=== PATIENT | male | born 1940 | race Caucasian/White ===

== ENCOUNTER 2018-10-08 17:00 | Inpatient (IN) | payer OTHER, BC ==
--- NOTE | 2018-10-08 17:07 | PDOC ---
Rapid Medical Evaluation Medical Evaluation: 10/08/18 17:07 I have performed a brief in-person evaluation of this patient. The patient presents with a chief complaint of: Sent in by Dr Watts ( podiatry)for admission for diabetic R foot. Per note, admit to [facility], consult w / David Alva and Mac). Has h/o NIDDM, HTN, MIs, CABG x 3, multiple knee surgeries, Parkinson's, ambulates w/ cane Pertinent physical exam findings: Stable, defer rest of exam to ED provider I have ordered the following:labs/XR The patient will proceed to the ED for further evaluation
--- NOTE | 2018-10-08 17:50 | PDOC ---
History of Present Illness - General Chief Complaint: Wound Stated Complaint: PCP SENT Time Seen by Provider: 10/08/18 17:41 - History of Present Illness Initial Comments: 10/08/18 17:49 Patient is a 78 year old male with past medical history of NIDDM, HTN, OK (s/p CABGx3), Parkinson's, and multiple knee surgeries, came to the ED for right foot wound. Patient reported the wound started a year ago, on his 2nd toe nail. He has been seen by Dr. Watts for foot and wound care. Patient was admitted 2 months ago at [facility] for right foot cellulitis. Today, patient was seen at Dr. Watts's office who sent patient to the ED for admission. Patient denies fever, chills, headache, dizziness, nausea, vomiting, chest pain, SOB, palpitations, abdominal pain, urinary symptoms. Past History - Past Medical History Allergies/Adverse Reactions: Allergies Allergy/AdvReac Type Severity Reaction Status Date / Time No Known Allergies Allergy Verified 10/08/18 17:22 Home Medications: Ambulatory Orders Atorvastatin Ca [Lipitor] 80 mg PO HS 10/08/18 Carbidopa/Levodopa/Entacapone [Xnccdxreb-Nvmmfqso-Dfog 200 mg] 1 each PO QID 10/14 Carvedilol [Coreg -] 6.25 mg PO BID 10/08/18 Furosemide 40 mg DAILY 10/08/18 Gabapentin 600 mg PO BID 10/08/18 Selegiline 5 mg BID 10/08/18 Cardiac Disorders: Yes (OK x 3) COPD: No Diabetes: Yes (Pre- diabetic) HTN: Yes Other medical history: Parkinson's Dx - Suicide/Smoking/Psychosocial Hx Smoking History: Unknown if ever smoked Have you smoked in the past 12 months: No Information on smoking cessation initiated: No Hx Alcohol Use: No Drug/Substance Use Hx: No Review of Systems - Review of Systems Constitutional: No: Chills, Fever, Loss of Appetite HEENTM: No: Recent change in vision, Hearing Loss, Difficulty Swallowing Respiratory: No: Cough, Shortness of Breath Cardiac (ROS): No: Chest Pain, Lightheadedness, Palpitations ABD/GI: No: Abdominal Distended, Diarrhea, Nausea, Vomiting, Abdominal cramping : No: Burning, Dysuria, Discharge Integumentary: Yes: Erythema, Lesions Neurological: No: Headache, Numbness, Tingling, Weakness *Physical Exam - Vital Signs Last Vital Signs Temp Pulse Resp BP Pulse Ox 97.9 F 57 L 16 91/52 L 98 10/08/18 17:15 10/08/18 17:15 10/08/18 17:15 10/08/18 17:15 10/08/18 17:15 - Physical Exam Comments: 10/08/18 18:51 General: awake, alert, oriented, not in acute distress Head: no signs of head trauma HEENT: PERRLA, EOMI, sclerae anicteric, no nasal discharge, non-erythematous oropharynx, moist mucous membranes Neck: soft, supple, trachea midline without thyroid enlargement Lungs:clear to auscultation bilaterally Heart:regular rate and rhythm, normal S1/S2, no m,r,g Abdomen:soft, nontender, nondistended, NABS Ext:RLE: +erythema, +tenderness, +warmth of dorsal aspect of right foot and anterior right leg. +purulent discharge on 2nd toe. DP pulses palpable. LLE: no erythema or swelling, +wound on 4th toe. Moderate Sedation - Procedure Monitoring Vital Signs: Procedure Monitoring Vital Signs Temperature 97.9 F 10/08/18 17:15 Pulse Rate 57 L 10/08/18 17:15 Respiratory Rate 16 10/08/18 17:15 Blood Pressure 91/52 L 10/08/18 17:15 O2 Sat by Pulse Oximetry (%) 98 10/08/18 17:15 ED Treatment Course - LABORATORY CBC & Chemistry Diagram: 10/08/18 17:53 10/08/18 17:53 Medical Decision Making - Medical Decision Making 10/08/18 18:56 Patient is a 78 year old male with past medical history of NIDDM, HTN, OK (s/p CABGx3), Parkinson's, and multiple knee surgeries, came to the ED for right foot wound. DDx include but not limited to diabetic foot, cellulitis, osteomyelitis CBC, CMP, ESR/CRP Blood cx Wound cx UA, Urine cx EKG Right foot xray 10/08/18 19:[address] Ramos's service Consult Dr. Perez, Dr. Hernandez, Dr. Watts *DC/Admit/Observation/Transfer - Referrals Referrals: Johnie Blankenship [Primary Care Provider] - - Patient Instructions - Post Discharge Activity
[2018-10-08 18:21] LABS: BASO % 0.4 % (0-2.0); EOS % 1.2 % (0-4.5); HEMATOCRIT 41.1 % (35.4-49); HEMOGLOBIN 14.4 GM/dL (11.7-16.9); LYMPH % 34.2 % (8-40); MCH 33.1 pg (25.7-33.7); MCHC 35.1 g/dl (32.0-35.9); MEAN CELL VOLUME 94.3 fl (80-96); MEAN PLT VOLUME 8.5 fl (7.5-11.1); MONO % 7.2 % (3.8-10.2); PLATELET COUNT 152 K/MM3 (134-434); RBC 4.36 M/mm3 (4.00-5.60); RDW 13.9 % (11.9-15.9); WHITE BLOOD COUNT 9.1 K/mm3 (4.0-10.0)
[2018-10-08 18:51] LABS: ALBUMIN 3.9 g/dl (3.4-5.0); ALK PHOS 99 U/L (45-117); ANION GAP 6 MMOL/L (8-16); BILIRUBIN,TOTAL 0.7 mg/dL (0.2-1); BLOOD UREA NITROGEN 28 mg/dL (7-18); CHLORIDE 100 mmol/L (98-107); CO2 30 mmol/L (21-32); CREATININE 1.1 mg/dL (0.55-1.3); GLUCOSE,RANDOM 96 mg/dL (74-106); SGOT/AST 15 U/L (15-37); SGPT/ALT 8 U/L (13-61); SODIUM 136 mmol/L (136-145); TOT PROT 7.4 g/dl (6.4-8.2)
[2018-10-08] MEDS ORDERED: VANCOMYCIN 1,000 MG in DEXTROSE 5%-WATER - 250 ML IVPB ONE (18:57)
[2018-10-08] MEDS ORDERED: VANCOMYCIN 1 GRAM (PRE-DOCKED) 1,000 MG/250 ML BAG IVPB ONE (19:33)
--- NOTE | 2018-10-08 20:44 | PDOC ---
Attending Attestation - Resident Resident Name: Graciela Vergara - ED Attending Attestation I have performed the following: I have examined & evaluated the patient, The case was reviewed & discussed with the resident, I agree w/resident's findings & plan, Exceptions are as noted - HPI HPI: 10/08/18 20:42 The patient is a 78 year old male with significant past medical history of NIDDM , HTN, UT (s/p CABGx3), Parkinson's, and multiple knee surgeries, who presents to the ED for evaluation of a wound to his right foot right foot wound sent by his knife sharpener Dr. Watts due to concern for wound infection. Patient denies fever, chills, headache, dizziness, nausea, vomiting, chest pain, SOB. - Physicial Exam PE: 10/08/18 20:43 Agree with resident exam - Medical Decision Making 10/08/18 20:43 78 M with chronic wounds to R foot, now with signs of infection, sent in for IV abx. - Labs, cultures - IV vanco - ID/vascular/podiatry consult - Admit
[2018-10-08 20:53] LABS: URINE APPEARANCE CLEAR; URINE BILIRUBIN NEGATIVE (<2.0 mg/dL); URINE GLUCOSE (UA) NEGATIVE (NEGATIVE); URINE KETONE TRACE (NEGATIVE); URINE LEUK ESTERASE NEGATIVE (NEGATIVE); URINE NITRITE NEGATIVE (NEGATIVE); URINE PROTEIN NEGATIVE (NEGATIVE); URINE UROBILINOGEN NEGATIVE mg/dL (0.2-1.0)
[2018-10-08 21:14] LABS: URINE COLOR YELLOW
--- NOTE | 2018-10-08 22:39 | PDOC ---
*Physical Exam - Vital Signs Last Vital Signs Temp Pulse Resp BP Pulse Ox 97.6 F 64 18 101/58 L 97 10/08/18 21:34 10/08/18 21:34 10/08/18 21:34 10/08/18 21:34 10/08/18 21:34 ED Treatment Course - LABORATORY CBC & Chemistry Diagram: 10/08/18 17:53 10/08/18 17:53 - ADDITIONAL ORDERS Additional order review: Laboratory Results 10/08/18 10/08/18 10/08/18 20:32 17:53 17:51 Sodium 136 Potassium 4.0 Chloride 100 Carbon Dioxide 30 Anion Gap 6 L BUN 28 H Creatinine 1.1 Creat Clearance w eGFR > 60 Random Glucose 96 Calcium 9.0 Total Bilirubin 0.7 AST 15 ALT 8 L Alkaline Phosphatase 99 C-Reactive Protein < 0.3 Total Protein 7.4 Albumin 3.9 Urine Color Yellow Urine Appearance Clear Urine pH 5.0 Ur Specific [place] 1.013 Urine Protein Negative Urine Glucose (UA) Negative Urine Ketones Trace H Urine Blood Negative Urine Nitrite Negative Urine Bilirubin Negative Urine Urobilinogen Negative Ur Leukocyte Esterase Negative 10/08/18 17:53 RBC 4.36 MCV 94.3 MCHC 35.1 RDW 13.9 MPV 8.5 Neutrophils % 57.0 Lymphocytes % 34.2 Monocytes % 7.2 Eosinophils % 1.2 Basophils % 0.4 - Medications Given in the ED: ED Medications Discontinued Medications Generic Name Dose Route Start Last Admin Trade Name Freq PRN Reason Stop Dose Admin Vancomycin HCl 1,000 mg/ 250 mls @ 166.667 mls/hr 10/08/18 18:57 10/08/18 19: 40 Dextrose IVPB 10/08/18 20:26 166.667 mls/hr ONCE ONE Administration Protocol Medical Decision Making - Medical Decision Making 10/08/18 22:40 Patient is a 78 year old male with past medical history of NIDDM, HTN, UT (s/p CABGx3), Parkinson's, and multiple knee surgeries, came to the ED for right foot wound. Patient reported the wound started a year ago, on his 2nd toe nail. He has been seen by Dr. Watts for foot and wound care. Patient was admitted 2 months ago at [facility] for right foot cellulitis. Today, patient was seen at Dr. Watts's office who sent patient to the ED for admission. Patient denies fever, chills, headache, dizziness, nausea, vomiting, chest pain, SOB, palpitations, abdominal pain, urinary symptoms. Called Dr. Ramos and admitted pt. *DC/Admit/Observation/Transfer Diagnosis at time of Disposition: Cellulitis Qualifiers: Site of cellulitis: extremity Site of cellulitis of extremity: lower extremity Laterality: right Qualified Code(s): L03.115 - Cellulitis of right lower limb - Discharge Dispostion Decision to Admit order: Yes Decision to Admit order Date/Time: Decision to Admit Order Category Date Time Status Decision to Admit to Hospital Routine Admission 10/08/18 19:33 Active - Referrals - Patient Instructions - Post Discharge Activity
[2018-10-08 23:36] VITALS: BMI 26.1
[2018-10-09] MEDS: INSULIN SLIDING SCALE (NOVOLOG) 1 VIAL SQ SCH ×4 (06:08→21:59)
[2018-10-09 07:38] LABS: BASO % 0.5 % (0-2.0); EOS % 1.9 % (0-4.5); HEMATOCRIT 39.9 % (35.4-49); HEMOGLOBIN 13.1 GM/dL (11.7-16.9); LYMPH % 37.7 % (8-40); MCH 31.6 pg (25.7-33.7); MEAN CELL VOLUME 95.7 fl (80-96); MEAN PLT VOLUME 8.5 fl (7.5-11.1); MONO % 8.5 % (3.8-10.2); NEUT % 51.4 % (42.8-82.8); PLATELET COUNT 125 K/MM3 (134-434); RBC 4.17 M/mm3 (4.00-5.60); RDW 14.2 % (11.9-15.9); WHITE BLOOD COUNT 6.6 K/mm3 (4.0-10.0)
[2018-10-09 08:59] LABS: ALBUMIN 3.3 g/dl (3.4-5.0); ALK PHOS 85 U/L (45-117); ANION GAP 9 MMOL/L (8-16); BILIRUBIN,TOTAL 0.8 mg/dL (0.2-1); BLOOD UREA NITROGEN 25 mg/dL (7-18); CALCIUM 8.3 mg/dL (8.5-10.1); CHLORIDE 103 mmol/L (98-107); CO2 27 mmol/L (21-32); GLUCOSE,RANDOM 93 mg/dL (74-106); SGOT/AST 11 U/L (15-37); SGPT/ALT 15 U/L (13-61); SODIUM 138 mmol/L (136-145); TOT PROT 6.4 g/dl (6.4-8.2)
[2018-10-09] MEDS: GABAPENTIN 300 MG CAPSULE (FP) PO SCH ×2 (09:31→21:59)
[2018-10-09] MEDS: CARVEDILOL 6.25 MG TABLET (FP) PO SCH ×2 (09:31→21:58)
[2018-10-09] MEDS: HEPARIN NA (PORCINE) 5,000 UNITS/ML 1ML VIAL SQ SCH ×2 (09:31→21:58)
[2018-10-09] MEDS ORDERED: VANCOMYCIN 1 GRAM (PRE-DOCKED) 1,000 MG/250 ML BAG IVPB SCH (10:00)
[2018-10-09] MEDS ORDERED: VANCOMYCIN 1 GRAM (PRE-DOCKED) 1,000 MG/250 ML BAG IVPB ONE (10:00)
--- NOTE | 2018-10-09 10:32 | CONSULT ---
Consult - Alcohol/Substance Use Hx Alcohol Use: No - Smoking History Smoking history: Never smoked Have you smoked in the past 12 months: No Home Medications - Allergies Allergies/Adverse Reactions: Allergies Allergy/AdvReac Type Severity Reaction Status Date / Time No Known Allergies Allergy Verified 10/08/18 17:22 - Home Medications Home Medications: Ambulatory Orders Atorvastatin Ca [Lipitor] 80 mg PO HS 10/08/18 Carbidopa/Levodopa/Entacapone [Whutwozml-Iwdpiecj-Dibd 200 mg] 1 each PO QID 10/14 Carvedilol [Coreg -] 6.25 mg PO BID 10/08/18 Furosemide 40 mg DAILY 10/08/18 Gabapentin 600 mg PO BID 10/08/18 Selegiline 5 mg BID 10/08/18 Physical Exam Vital Signs: Vital Signs Temperature 98.2 F 10/09/18 06:00 Pulse Rate 60 10/09/18 06:00 Respiratory Rate 20 10/09/18 06:00 Blood Pressure 129/57 L 10/09/18 06:00 O2 Sat by Pulse Oximetry (%) 97 10/08/18 21:34 Labs: CBC, BMP 10/09/18 07:00 10/09/18 07:00
--- NOTE | 2018-10-09 11:28 | PN ---
Progress Note (short form) - Note Progress Note: Vascular Surgery pt seen and examined. RLE cellulitis Leg is warm to touch Pt was admitted at [facility] 3 weeks ago for similiar event. Pt needs leg elevation, and IV antibiotics Pt needs to follow up in wound care clinc for outpt venous workup. pt needs stockings as outpt as well for compression. Juan gardner DO
--- NOTE | 2018-10-09 12:48 | EKG ---
Test Reason : Blood Pressure : / mmHG Vent. Rate : 069 BPM Atrial Rate : 069 BPM P-R Int : 220 ms QRS Dur : 094 ms QT Int : 406 ms P-R-T Axes : 077 036 050 degrees QTc Int : 435 ms SINUS RHYTHM WITH 1ST DEGREE A-V BLOCK WITH PREMATURE ATRIAL COMPLEXES INFERIOR INFARCT , AGE UNDETERMINED ABNORMAL ECG WHEN COMPARED WITH ECG OF 08-OCT-2018 19:08, NO SIGNIFICANT CHANGE WAS FOUND Confirmed by ROCAEL SANDOVAL, CINDY ([id number]) on 10/09/2018 12:47:50 PM Referred By: Confirmed By:CINDY COTE MD
--- NOTE | 2018-10-09 13:12 | CON.ID ---
Consult - Alcohol/Substance Use Hx Alcohol Use: No - Smoking History Smoking history: Never smoked Have you smoked in the past 12 months: No Home Medications - Allergies Allergies/Adverse Reactions: Allergies Allergy/AdvReac Type Severity Reaction Status Date / Time No Known Allergies Allergy Verified 10/08/18 17:22 - Home Medications Home Medications: Ambulatory Orders Atorvastatin Ca [Lipitor] 80 mg PO HS 10/08/18 Carbidopa/Levodopa/Entacapone [Oupnrqskm-Buyvdlgn-Ywxo 200 mg] 1 each PO QID 10/14 Carvedilol [Coreg -] 6.25 mg PO BID 10/08/18 Furosemide 40 mg DAILY 10/08/18 Gabapentin 600 mg PO BID 10/08/18 Selegiline 5 mg BID 10/08/18 Physical Exam Vital Signs: Vital Signs Temperature 97.9 F 10/09/18 10:00 Pulse Rate 62 10/09/18 10:00 Respiratory Rate 20 10/09/18 10:00 Blood Pressure 125/62 10/09/18 10:00 O2 Sat by Pulse Oximetry (%) 95 10/09/18 09:00 Labs: CBC, BMP 10/09/18 07:00 10/09/18 07:00
--- NOTE | 2018-10-09 13:37 | HP ---
Admitting History and Physical - Smoking History Smoking history: Never smoked Have you smoked in the past 12 months: No - Alcohol/Substance Use Hx Alcohol Use: No Home Medications - Allergies Allergies/Adverse Reactions: Allergies Allergy/AdvReac Type Severity Reaction Status Date / Time No Known Allergies Allergy Verified 10/08/18 17:22 - Home Medications Home Medications: Ambulatory Orders Atorvastatin Ca [Lipitor] 80 mg PO HS 10/08/18 Carbidopa/Levodopa/Entacapone [Pdaljrfux-Vqyarzqn-Zgue 200 mg] 1 each PO QID 10/14 Carvedilol [Coreg -] 6.25 mg PO BID 10/08/18 Furosemide 40 mg DAILY 10/08/18 Gabapentin 600 mg PO BID 10/08/18 Selegiline 5 mg BID 10/08/18 Physical Examination Vital Signs: Vital Signs Temperature 97.9 F 10/09/18 10:00 Pulse Rate 62 10/09/18 10:00 Respiratory Rate 20 10/09/18 10:00 Blood Pressure 125/62 10/09/18 10:00 O2 Sat by Pulse Oximetry (%) 95 10/09/18 09:00 Labs: CBC, BMP 10/09/18 07:00 10/09/18 07:00
[2018-10-09] MEDS: AMPICILLIN NA/SULBACTAM NA 3 GM in SODIUM CHLORIDE 100 ML IVPB SCH ×2 (14:48→17:22)
[2018-10-09] MEDS ORDERED: PT OWN MED DRAWER 7, Y5N ONE ×2 (15:02→17:04)
[2018-10-09] MEDS: CARBIDOP 50MG/LEVODOPA 200MG/ENTACAPONE 200MG TABLET PO SCH ×3 (16:30→22:00)
[2018-10-09] MEDS: ATORVASTATIN CA 80 MG TABLET (FP) PO SCH (21:58)
[2018-10-10] MEDS: AMPICILLIN NA/SULBACTAM NA 3 GM in SODIUM CHLORIDE 100 ML IVPB SCH ×2 (01:36→09:28)
[2018-10-10] MEDS: INSULIN SLIDING SCALE (NOVOLOG) 1 VIAL SQ SCH ×4 (06:24→21:47)
[2018-10-10] MEDS ORDERED: PT OWN MED DRAWER 7, Y5N ONE ×2 (06:26→21:02)
[2018-10-10] MEDS ORDERED: INSULIN (LEVEMIR) 100 UNITS/ML UNITS SQ ONE (06:26)
[2018-10-10] MEDS ORDERED: INSULIN (NOVOLOG) ASPART 100 UNITS/ML 10ML VIAL ONE ×2 (06:26→20:52)
[2018-10-10] MEDS: CARVEDILOL 6.25 MG TABLET (FP) PO SCH ×2 (09:28→21:47)
[2018-10-10] MEDS: GABAPENTIN 300 MG CAPSULE (FP) PO SCH ×2 (09:28→21:47)
[2018-10-10] MEDS: HEPARIN NA (PORCINE) 5,000 UNITS/ML 1ML VIAL SQ SCH ×2 (09:28→21:47)
[2018-10-10] MEDS: CARBIDOP 50MG/LEVODOPA 200MG/ENTACAPONE 200MG TABLET PO SCH ×4 (09:30→21:48)
[2018-10-10] MEDS: BACITRACIN 15 GM TUBE TOPICAL OINTMENT TP SCH (10:06)
--- NOTE | 2018-10-10 13:09 | PN ---
Progress Note, Physician History of Present Illness: patient doing well no complaints legs look good no pain - Current Medication List Current Medications: Active Medications Atorvastatin Calcium (Lipitor -) 80 mg PO HS [facility] Last Admin: 10/09/18 21:58 Dose: 80 mg Bacitracin (Bacitracin -) 1 applic TP DAILY [facility] Last Admin: 10/10/18 10:06 Dose: 1 applic Carbidopa/Levodopa/Entacapone (Stalevo 200 -) 1 each PO QID [facility] Last Admin: 10/10/18 09:30 Dose: 1 each Carvedilol (Coreg -) 6.25 mg PO BID [facility] Last Admin: 10/10/18 09:28 Dose: 6.25 mg Gabapentin (Neurontin -) 600 mg PO BID [facility] Last Admin: 10/10/18 09:28 Dose: 600 mg Heparin Sodium (Porcine) (Heparin -) 5,000 unit SQ BID [facility] Last Admin: 10/10/18 09:28 Dose: 5,000 unit Ampicillin Sodium/Sulbactam (Sodium 3 gm/ Sodium Chloride) 100 mls @ 200 mls/ hr IVPB Q8H-IV [facility] Last Admin: 10/10/18 09:28 Dose: 200 mls/hr Insulin Aspart (Novolog Vial Sliding Scale -) 1 vial SQ ACHS [facility]; Protocol Last Admin: 10/10/18 11:23 Dose: Not Given - Objective Vital Signs: Vital Signs Temperature 97.3 F L 10/10/18 10:00 Pulse Rate 53 L 10/10/18 10:00 Respiratory Rate 20 10/10/18 10:00 Blood Pressure 121/66 10/10/18 10:00 O2 Sat by Pulse Oximetry (%) 99 10/10/18 09:00 Constitutional: Yes: No Distress, Calm Cardiovascular: Yes: Regular Rate and Rhythm Respiratory: Yes: Regular, CTA Bilaterally Gastrointestinal: Yes: Normal Bowel Sounds, Soft Musculoskeletal: Yes: WNL Extremities: Yes: Other Integumentary: Yes: Venous Stasis Changes, Other Neurological: Yes: Alert, Oriented Labs: CBC, BMP 10/09/18 07:00 10/09/18 07:00 Assessment/Plan cellulitis of the leg toe injury plan will change to oral abx monitor rest as per the team
--- NOTE | 2018-10-10 13:44 | PN ---
Progress Note (short form) - Note Progress Note: FUV right leg and foot. No pain. vss, Tmax 97.8 +resolved cellulitis, -open wound, +eschar toes 2&3 where he cut his toes, resoilved cellulitis can be dc from podiatry standpoint and follow up in office. Abx as per ID.
[2018-10-10] MEDS: AMOX TR/POT CLAV 500MG/125MG TABLETS (FP) PO SCH (16:51)
[2018-10-10] MEDS: ATORVASTATIN CA 80 MG TABLET (FP) PO SCH (21:47)
--- NOTE | 2018-10-10 23:11 | PN ---
Progress Note, Physician - Current Medication List Current Medications: Active Medications Amoxicillin/Clavulanate Potassium (Augmentin - 500mg Tablet) 1 tab PO BID@0800, 1730 [facility] Last Admin: 10/10/18 16:51 Dose: 1 tab Atorvastatin Calcium (Lipitor -) 80 mg PO HS [facility] Last Admin: 10/10/18 21:47 Dose: 80 mg Bacitracin (Bacitracin -) 1 applic TP DAILY [facility] Last Admin: 10/10/18 10:06 Dose: 1 applic Carbidopa/Levodopa/Entacapone (Stalevo 200 -) 1 each PO QID [facility] Last Admin: 10/10/18 21:48 Dose: 1 each Carvedilol (Coreg -) 6.25 mg PO BID [facility] Last Admin: 10/10/18 21:47 Dose: 6.25 mg Gabapentin (Neurontin -) 600 mg PO BID [facility] Last Admin: 10/10/18 21:47 Dose: 600 mg Heparin Sodium (Porcine) (Heparin -) 5,000 unit SQ BID [facility] Last Admin: 10/10/18 21:47 Dose: 5,000 unit Insulin Aspart (Novolog Vial Sliding Scale -) 1 vial SQ [facility]; Protocol Last Admin: 10/10/18 21:47 Dose: Not Given - Objective Vital Signs: Vital Signs Temperature 97.7 F 10/10/18 18:07 Pulse Rate 59 L 10/10/18 18:07 Respiratory Rate 18 10/10/18 18:07 Blood Pressure 142/64 10/10/18 18:07 O2 Sat by Pulse Oximetry (%) 99 10/10/18 09:00 Labs: CBC, BMP 10/09/18 07:00 10/09/18 07:00
[2018-10-11 01:08] VITALS: TEMP 97.4
[2018-10-11] MEDS ORDERED: PT OWN MED DRAWER 7, Y5N ONE (08:55)
[2018-10-11] MEDS: AMOX TR/POT CLAV 500MG/125MG TABLETS (FP) PO SCH ×2 (09:00→16:40)
[2018-10-11] MEDS: GABAPENTIN 300 MG CAPSULE (FP) PO SCH (09:03)
[2018-10-11] MEDS: CARVEDILOL 6.25 MG TABLET (FP) PO SCH (09:04)
[2018-10-11] MEDS: HEPARIN NA (PORCINE) 5,000 UNITS/ML 1ML VIAL SQ SCH (09:04)
[2018-10-11] MEDS: CARBIDOP 50MG/LEVODOPA 200MG/ENTACAPONE 200MG TABLET PO SCH ×2 (09:05→14:36)
[2018-10-11] MEDS: BACITRACIN 15 GM TUBE TOPICAL OINTMENT TP SCH (09:05)
[2018-10-11] MEDS: INSULIN SLIDING SCALE (NOVOLOG) 1 VIAL SQ SCH ×2 (12:00→16:34)
[2018-10-11 13:55] VITALS: BP 96/75; PULSE 60
--- NOTE | 2018-10-11 14:01 | PN ---
Progress Note, Physician - Current Medication List Current Medications: Active Medications Amoxicillin/Clavulanate Potassium (Augmentin - 500mg Tablet) 1 tab PO BID@0800, 1730 [facility] Last Admin: 10/11/18 09:00 Dose: 1 tab Atorvastatin Calcium (Lipitor -) 80 mg PO HS [facility] Last Admin: 10/10/18 21:47 Dose: 80 mg Bacitracin (Bacitracin -) 1 applic TP DAILY [facility] Last Admin: 10/11/18 09:05 Dose: 1 applic Carbidopa/Levodopa/Entacapone (Stalevo 200 -) 1 each PO QID [facility] Last Admin: 10/11/18 09:05 Dose: 1 each Carvedilol (Coreg -) 6.25 mg PO BID [facility] Last Admin: 10/11/18 09:04 Dose: 6.25 mg Gabapentin (Neurontin -) 600 mg PO BID [facility] Last Admin: 10/11/18 09:03 Dose: 600 mg Heparin Sodium (Porcine) (Heparin -) 5,000 unit SQ BID [facility] Last Admin: 10/11/18 09:04 Dose: 5,000 unit Insulin Aspart (Novolog Vial Sliding Scale -) 1 vial SQ [facility]; Protocol Last Admin: 10/10/18 21:47 Dose: Not Given - Objective Vital Signs: Vital Signs Temperature 97.4 F L 10/11/18 13:54 Pulse Rate 60 10/11/18 13:54 Respiratory Rate 20 10/11/18 13:54 Blood Pressure 96/75 10/11/18 13:54 O2 Sat by Pulse Oximetry (%) 99 10/10/18 21:00 Labs: CBC, BMP 10/09/18 07:00 10/09/18 07:00
--- NOTE | 2018-10-12 12:32 | EKG ---
Test Reason : Blood Pressure : / mmHG Vent. Rate : 066 BPM Atrial Rate : 066 BPM P-R Int : 194 ms QRS Dur : 094 ms QT Int : 406 ms P-R-T Axes : 078 049 065 degrees QTc Int : 425 ms SINUS RHYTHM WITH PREMATURE SUPRAVENTRICULAR COMPLEXES OTHERWISE NORMAL ECG NO PREVIOUS ECGS AVAILABLE Confirmed by THANH ARAYA MD ([id number]) on 10/12/2018 12:31:51 PM Referred By: Confirmed By:THANH ARAYA MD
== END 2018-10-11 16:40 | disposition home or self-care (01) | DRG 603 ==
LOC: JER 17:00 → J7W 19:33
PROVIDERS: ADMIT Internal Medicine; ATTEND Internal Medicine
DX: L03.115 Cellulitis of right lower limb (principal); I10 Essential (primary) hypertension; I25.2 Old myocardial infarction; Z95.1 Presence of aortocoronary bypass graft; G20 Parkinson's disease; Z79.4 Long term (current) use of insulin
CPT/HCPCS: 36415; 73630-TC-RT-FY; 80053; 81003; 82962; 85025; 85651; 86140; 87040; 87070; 87086; 87186; 87205; 93005; 93010; 99283-25; J1644

== ENCOUNTER 2018-10-30 12:34 | Inpatient (IN) | payer OTHER, BC ==
[2018-10-30] MEDS ORDERED: AMPICILLIN NA/SULBACTAM NA 3 GM in SODIUM CHLORIDE 100 ML IVPB ONE (13:47)
--- NOTE | 2018-10-30 14:35 | PDOC ---
*Physical Exam - Vital Signs Last Vital Signs Temp Pulse Resp BP Pulse Ox 97.4 F L 74 18 106/49 L 98 10/30/18 13:09 10/30/18 13:09 10/30/18 13:09 10/30/18 13:09 10/30/18 13:09 ED Treatment Course - LABORATORY CBC & Chemistry Diagram: 10/31/18 07:00 11/03/18 06:00 Medical Decision Making - Medical Decision Making 10/30/18 14:35 Pt seen by the Advanced Practice Provider under my direct supervision Ancillary studies reviewed I agree with plan as outlined by the Advanced Practice Provider JOSELIN Gimenez *DC/Admit/Observation/Transfer Diagnosis at time of Disposition: Recurrent cellulitis of lower extremity - Referrals - Patient Instructions - Post Discharge Activity
--- NOTE | 2018-10-30 14:36 | PDOC ---
History of Present Illness - General Chief Complaint: Wound Stated Complaint: WOUND Time Seen by Provider: 10/30/18 13:39 History Source: Patient Exam Limitations: No Limitations - History of Present Illness Initial Comments: 10/30/18 14:26 78-year-old male with history of diabetes and recent cellulitis of the right leg presents to the ED with redness swelling and discomfort to the right lower extremity since this morning. The patient was admitted here last month for the same. Patient denies fever, chills, chest pain or shortness of breath. Patient denies open wounds and did not check his glucose this morning Timing/Duration: 24 hours Severity: moderate Associated Symptoms: reports: denies symptoms Past History - Travel Traveled outside of the country in the last 30 days: No Close contact w/someone who was outside of country & ill: No - Past Medical History Allergies/Adverse Reactions: Allergies Allergy/AdvReac Type Severity Reaction Status Date / Time No Known Allergies Allergy Verified 10/30/18 13:09 Home Medications: Ambulatory Orders Atorvastatin Ca [Lipitor] 80 mg PO HS 10/08/18 Carbidopa/Levodopa/Entacapone [Carbidopa-Levodopa 200 mg-Enta] 1 each PO QID 10/14 Carvedilol [Coreg -] 6.25 mg PO BID 10/08/18 Furosemide 40 mg DAILY 10/08/18 Gabapentin 600 mg PO BID 10/08/18 Selegiline 5 mg BID 10/08/18 Amox-Tr/K Cl [Augmentin 500-125mg Tablet -] 1 tab PO BID@0800,1730 #20 tablet Bacitracin - [Bacitracin Topical Ointment -] 1 applic TP DAILY #1 tube 10/11/18 Cardiac Disorders: Yes (RI x 3) COPD: No Diabetes: Yes (Pre- diabetic) HTN: Yes - Surgical History Orthopedic Surgery: Yes (KNEE SURGERY) - Immunization History Immunization Up to Date: Yes - Suicide/Smoking/Psychosocial Hx Smoking History: Never smoked Have you smoked in the past 12 months: No Information on smoking cessation initiated: No Hx Alcohol Use: No Drug/Substance Use Hx: No Patient Lives Alone: No Lives with/in: spouse/SO Review of Systems - Review of Systems Able to Perform ROS?: Yes Constitutional: No: Symptoms Reported HEENTM: No: Symptoms Reported Respiratory: No: Symptoms reported Cardiac (ROS): Yes: Symptoms Reported, Edema ABD/GI: No: Symptoms Reported : No: Symptoms Reported Musculoskeletal: Yes: Symptoms Reported, Muscle Pain (right calf) Integumentary: Yes: Erythema Neurological: No: Symptoms reported *Physical Exam - Vital Signs Last Vital Signs Temp Pulse Resp BP Pulse Ox 97.4 F L 74 18 106/49 L 98 10/30/18 13:09 10/30/18 13:09 10/30/18 13:09 10/30/18 13:09 10/30/18 13:09 - Physical Exam General Appearance: Yes: Nourished, Appropriately Dressed. No: Apparent Distress Respiratory/Chest: positive: Lungs Clear, Normal Breath Sounds. negative: Respiratory Distress, Accessory Muscle Use Cardiovascular: positive: Regular Rhythm, Regular Rate. negative: Murmur Extremity: positive: Normal Capillary Refill, Pedal Edema (2+ nonpitting edema to right lower extremity with erythema and increased warmth), Calf Tenderness ( mild distal right calf) Integumentary: positive: Erythema, Swelling Neurologic: positive: Normal Mood/Affect, Motor Strength 5/5 Moderate Sedation - Procedure Monitoring Vital Signs: Procedure Monitoring Vital Signs Temperature 97.4 F L 10/30/18 13:09 Pulse Rate 74 10/30/18 13:09 Respiratory Rate 18 10/30/18 13:09 Blood Pressure 106/49 L 10/30/18 13:09 O2 Sat by Pulse Oximetry (%) 98 10/30/18 13:09 ED Treatment Course - LABORATORY CBC & Chemistry Diagram: 10/30/18 15:00 10/30/18 14:49 - RADIOLOGY Radiology Studies Ordered: Category Date Time Status DUPLEX VASCUL US-1 LEG [US] Stat Ultrasound 10/30/18 13:46 Ordered Medical Decision Making - Medical Decision Making 10/30/18 14:30 Chief complaint: Right lower extremity redness swelling and discomfort. Recent cellulitis with IV antibiotics last month Exam: Erythematous warm erythematous right lower extremity Plan: Cellulitis workup along with duplex to rule out DVT. Patient ordered for Unasyn 3 g 10/30/18 16:11 Laboratory Tests 10/30/18 10/30/18 10/30/18 14:49 15:00 15:00 WBC 11.0 H Hgb 13.9 Hct 42.6 Plt Count 112 L Absolute Neuts (auto) 9.5 H Neutrophils % 85.9 H D Neutrophils % (Manual) Pending Lymphocytes % 8.4 D Eosinophils % 0.2 D Sodium 132 L Potassium 4.0 Chloride 99 Carbon Dioxide 26 Anion Gap 7 L BUN 27 H Creatinine 0.9 Creat Clearance w eGFR > 60 Random Glucose 125 H Lactic Acid 1.7 Calcium 8.3 L Magnesium 2.0 Total Bilirubin 0.7 AST 16 ALT 9 L Alkaline Phosphatase 87 Total Protein 6.8 Albumin 3.4 10/30/18 17:20 Duplex negative for DVT. Case discussed with Dr. Ramos who accepted patient to service inpatient MedSurg. *DC/Admit/Observation/Transfer Diagnosis at time of Disposition: Recurrent cellulitis of lower extremity - Discharge Dispostion Decision to Admit order: Yes - Referrals Referrals: Johnie Blankenship [Primary Care Provider] - - Patient Instructions - Post Discharge Activity
[2018-10-30 15:45] LABS: BASO % 1.2 % (0-2.0); EOS % 0.2 % (0-4.5); HEMATOCRIT 42.6 % (35.4-49); HEMOGLOBIN 13.9 GM/dL (11.7-16.9); LYMPH % 8.4 % (8-40); MCH 31.1 pg (25.7-33.7); MCHC 32.6 g/dl (32.0-35.9); MEAN CELL VOLUME 95.3 fl (80-96); MEAN PLT VOLUME 8.4 fl (7.5-11.1); MONO % 4.3 % (3.8-10.2); NEUT % 85.9 % (42.8-82.8); PLATELET COUNT 112 K/MM3 (134-434); RBC 4.47 M/mm3 (4.00-5.60); RDW 14.1 % (11.9-15.9)
[2018-10-30 15:49] LABS: ALBUMIN 3.4 g/dl (3.4-5.0); ALK PHOS 87 U/L (45-117); ANION GAP 7 MMOL/L (8-16); BILIRUBIN,TOTAL 0.7 mg/dL (0.2-1); BLOOD UREA NITROGEN 27 mg/dL (7-18); CALCIUM 8.3 mg/dL (8.5-10.1); CHLORIDE 99 mmol/L (98-107); CO2 26 mmol/L (21-32); CREATININE 0.9 mg/dL (0.55-1.3); GLUCOSE,RANDOM 125 mg/dL (74-106); SGOT/AST 16 U/L (15-37); SGPT/ALT 9 U/L (13-61); SODIUM 132 mmol/L (136-145); TOT PROT 6.8 g/dl (6.4-8.2)
[2018-10-30] MEDS ORDERED: SODIUM CHLORIDE 1,000 ML IV STA (16:10)
[2018-10-30 17:23] LABS: PLATELET ESTIMATE DECREASED
[2018-10-30 20:53] LABS: URINE APPEARANCE CLEAR; URINE BILIRUBIN NEGATIVE (<2.0 mg/dL); URINE COLOR AMBER; URINE GLUCOSE (UA) NEGATIVE (NEGATIVE); URINE KETONE TRACE (NEGATIVE); URINE LEUK ESTERASE TRACE (NEGATIVE); URINE NITRITE NEGATIVE (NEGATIVE); URINE PROTEIN NEGATIVE (NEGATIVE); URINE UROBILINOGEN NEGATIVE mg/dL (0.2-1.0)
[2018-10-30 21:13] LABS: EPI CELLS RARE /HPF (FEW)
[2018-10-30] MEDS ORDERED: SELEGILINE 5 MG PO SCH (23:45)
--- NOTE | 2018-10-30 23:46 | HP ---
Admitting History and Physical - Smoking History Smoking history: Never smoked Have you smoked in the past 12 months: No - Alcohol/Substance Use Hx Alcohol Use: No Home Medications - Allergies Allergies/Adverse Reactions: Allergies Allergy/AdvReac Type Severity Reaction Status Date / Time No Known Allergies Allergy Verified 10/30/18 13:09 - Home Medications Home Medications: Ambulatory Orders Atorvastatin Ca [Lipitor] 80 mg PO HS 10/08/18 Carbidopa/Levodopa/Entacapone [Carbidopa-Levodopa 200 mg-Enta] 1 each PO QID 10/14 Carvedilol [Coreg -] 6.25 mg PO BID 10/08/18 Furosemide 40 mg DAILY 10/08/18 Gabapentin 600 mg PO BID 10/08/18 Selegiline 5 mg BID 10/08/18 Bacitracin - [Bacitracin Topical Ointment -] 1 applic TP DAILY #1 tube 10/11/18 Physical Examination Vital Signs: Vital Signs Temperature 98.3 F 10/30/18 22:15 Pulse Rate 82 10/30/18 22:15 Respiratory Rate 18 10/30/18 22:15 Blood Pressure 110/56 L 10/30/18 22:15 O2 Sat by Pulse Oximetry (%) 98 10/30/18 20:46 Labs: CBC, BMP 10/30/18 15:00 10/30/18 14:49
[2018-10-31] MEDS: GABAPENTIN 300 MG CAPSULE (FP) PO SCH ×3 (00:32→21:01)
[2018-10-31] MEDS: SELEGILINE 5 MG PO SCH ×3 (00:33→21:31)
[2018-10-31] MEDS: AMPICILLIN NA/SULBACTAM NA 3 GM in SODIUM CHLORIDE 100 ML IVPB SCH ×3 (02:49→17:36)
[2018-10-31 04:12] VITALS: BMI 27.6
[2018-10-31] MEDS: HEPARIN NA (PORCINE) 5,000 UNITS/ML 1ML VIAL SQ SCH ×3 (06:53→21:01)
[2018-10-31 07:41] LABS: BASO % 0.2 % (0-2.0); EOS % 0.2 % (0-4.5); HEMATOCRIT 36.8 % (35.4-49); HEMOGLOBIN 12.3 GM/dL (11.7-16.9); LYMPH % 18.3 % (8-40); MCH 31.7 pg (25.7-33.7); MCHC 33.4 g/dl (32.0-35.9); MEAN CELL VOLUME 95.1 fl (80-96); MEAN PLT VOLUME 8.5 fl (7.5-11.1); MONO % 4.8 % (3.8-10.2); NEUT % 76.5 % (42.8-82.8); PLATELET COUNT 105 K/MM3 (134-434); RBC 3.87 M/mm3 (4.00-5.60); RDW 14.1 % (11.9-15.9)
[2018-10-31 08:03] LABS: ALBUMIN 2.7 g/dl (3.4-5.0); ALK PHOS 69 U/L (45-117); ANION GAP 5 MMOL/L (8-16); BILIRUBIN,TOTAL 0.6 mg/dL (0.2-1); BLOOD UREA NITROGEN 19 mg/dL (7-18); CHLORIDE 106 mmol/L (98-107); CO2 27 mmol/L (21-32); CREATININE 0.8 mg/dL (0.55-1.3); GLUCOSE,RANDOM 120 mg/dL (74-106); POTASSIUM 3.9 mmol/L (3.5-5.1); SGOT/AST 15 U/L (15-37); SGPT/ALT 16 U/L (13-61); SODIUM 138 mmol/L (136-145); TOT PROT 5.6 g/dl (6.4-8.2)
[2018-10-31] MEDS ORDERED: PT OWN MED DRAWER 7, Y5N ONE ×4 (10:43→20:32)
[2018-10-31] MEDS: CARVEDILOL 6.25 MG TABLET (FP) PO SCH ×2 (11:16→21:01)
[2018-10-31] MEDS: FUROSEMIDE 40 MG TABLET (FP) PO SCH (11:16)
[2018-10-31] MEDS: CARBIDOP 50MG/LEVODOPA 200MG/ENTACAPONE 200MG TABLET PO SCH ×4 (11:17→21:32)
--- NOTE | 2018-10-31 15:00 | CON.ID ---
Consult Consult Specialty:: infectious diseases Referred by:: Reason for Consultation:: cellulitis of the rt leg - History of Present Illness Chief Complaint: pain and swelling and erythema of the rt leg History of Present Illness: 78-year-old male with history of diabetes and recent cellulitis of the right leg presents to the ED with redness swelling and discomfort to the right lower extremity since this morning. The patient was admitted here last month for the same. Patient denies fever, chills, chest pain or shortness of breath. according to the patient the swelling came on suddenly and patient was not even able to place weight on his rt ext because of pain patient was admitted and was placed on abx now patient feels much better and the pain is better - History Source History Provided By: Patient, Family Member Limitations to Obtaining History: No Limitations - Alcohol/Substance Use Hx Alcohol Use: No - Smoking History Smoking history: Never smoked Have you smoked in the past 12 months: No Home Medications - Allergies Allergies/Adverse Reactions: Allergies Allergy/AdvReac Type Severity Reaction Status Date / Time No Known Allergies Allergy Verified 10/30/18 13:09 - Home Medications Home Medications: Ambulatory Orders Atorvastatin Ca [Lipitor] 80 mg PO HS 10/08/18 Carbidopa/Levodopa/Entacapone [Carbidopa-Levodopa 200 mg-Enta] 1 each PO QID 10/14 Carvedilol [Coreg -] 6.25 mg PO BID 10/08/18 Furosemide 40 mg DAILY 10/08/18 Gabapentin 600 mg PO BID 10/08/18 Selegiline 5 mg BID 10/08/18 Bacitracin - [Bacitracin Topical Ointment -] 1 applic TP DAILY #1 tube 10/11/18 Review of Systems - Review of Systems Constitutional: reports: No Symptoms HENT: reports: No Symptoms Neck: reports: No Symptoms Cardiovascular: reports: No Symptoms Respiratory: reports: No Symptoms Gastrointestinal: reports: No Symptoms Genitourinary: reports: No Symptoms Musculoskeletal: reports: Other Integumentary: reports: Change in Color, Erythema Neurological: reports: No Symptoms Endocrine: reports: No Symptoms Hematology/Lymphatic: reports: No Symptoms Psychiatric: reports: No Symptoms Physical Exam Vital Signs: Vital Signs Temperature 97.6 F 10/31/18 11:13 Pulse Rate 71 10/31/18 11:13 Respiratory Rate 19 10/31/18 11:13 Blood Pressure 115/58 L 10/31/18 11:13 O2 Sat by Pulse Oximetry (%) 98 10/31/18 09:00 Constitutional: Yes: No Distress, Calm Eyes: Yes: Conjunctiva Clear HENT: Yes: Atraumatic, Normocephalic Neck: Yes: Supple, Trachea Midline Cardiovascular: Yes: Regular Rate and Rhythm Respiratory: Yes: Regular, CTA Bilaterally Gastrointestinal: Yes: Normal Bowel Sounds, Soft Extremities: Yes: Erythema Integumentary: Yes: Erythema, Other (swelling of the rt leg) Neurological: Yes: Alert, Oriented Psychiatric: Yes: Alert, Oriented Labs: CBC, BMP 10/31/18 07:00 10/31/18 07:00 Imaging - Results Ultrasound: Report Reviewed, Image Reviewed Assessment/Plan this patient with multiple medical problems cellulitis erythem of the rt leg plan continue current mgmt abx rest as per the team will order an ankle xray as it looks big
[2018-10-31] MEDS: ATORVASTATIN CA 80 MG TABLET (FP) PO SCH (21:01)
[2018-10-31] MEDS: NYSTATIN 100000 UNIT/GM TOPICAL OINTMENT 15 GM TUBE TP SCH (21:01)
[2018-11-01] MEDS ORDERED: PT OWN MED DRAWER 7, Y5N ONE ×3 (01:16→18:16)
[2018-11-01] MEDS: AMPICILLIN NA/SULBACTAM NA 3 GM in SODIUM CHLORIDE 100 ML IVPB SCH ×3 (01:27→18:19)
[2018-11-01] MEDS: HEPARIN NA (PORCINE) 5,000 UNITS/ML 1ML VIAL SQ SCH ×3 (05:43→21:52)
[2018-11-01] MEDS: GABAPENTIN 300 MG CAPSULE (FP) PO SCH ×2 (10:10→21:52)
[2018-11-01] MEDS: FUROSEMIDE 40 MG TABLET (FP) PO SCH (10:10)
[2018-11-01] MEDS: CARVEDILOL 6.25 MG TABLET (FP) PO SCH ×2 (10:10→21:52)
[2018-11-01] MEDS: CARBIDOP 50MG/LEVODOPA 200MG/ENTACAPONE 200MG TABLET PO SCH ×4 (10:10→21:53)
[2018-11-01] MEDS: SELEGILINE 5 MG PO SCH ×2 (10:11→21:53)
[2018-11-01] MEDS: NYSTATIN 100000 UNIT/GM TOPICAL OINTMENT 15 GM TUBE TP SCH ×2 (11:36→21:53)
--- NOTE | 2018-11-01 16:51 | PN ---
Progress Note, Physician History of Present Illness: Pt seen and examined. He states he is starting to have less pain in Rt leg. Still with significant redness. No other specific complaints. - Current Medication List Current Medications: Active Medications Atorvastatin Calcium (Lipitor -) 80 mg PO HS [facility] Last Admin: 10/31/18 21:01 Dose: 80 mg Carbidopa/Levodopa/Entacapone (Stalevo 200 -) 1 each PO QID [facility] Last Admin: 11/01/18 14:35 Dose: 1 each Carvedilol (Coreg -) 6.25 mg PO BID [facility] Last Admin: 11/01/18 10:10 Dose: 6.25 mg Furosemide (Lasix -) 40 mg PO DAILY [facility] Last Admin: 11/01/18 10:10 Dose: 40 mg Gabapentin (Neurontin -) 600 mg PO BID [facility] Last Admin: 11/01/18 10:10 Dose: 600 mg Heparin Sodium (Porcine) (Heparin -) 5,000 unit SQ TID [facility] Last Admin: 11/01/18 14:32 Dose: 5,000 unit Ampicillin Sodium/Sulbactam (Sodium 3 gm/ Sodium Chloride) 100 mls @ 200 mls/ hr IVPB Q8H-IV [facility] Last Admin: 11/01/18 10:09 Dose: 200 mls/hr Selegiline 5 Mg Cap 1 each PO BID [facility] Last Admin: 11/01/18 10:11 Dose: 1 each Nystatin (Mycostatin Ointment -) 1 applic TP BID [facility] Last Admin: 11/01/18 11:36 Dose: 1 applic - Objective Vital Signs: Vital Signs Temperature 97.9 F 11/01/18 14:35 Pulse Rate 76 11/01/18 14:35 Respiratory Rate 18 11/01/18 14:35 Blood Pressure 105/58 L 11/01/18 14:35 O2 Sat by Pulse Oximetry (%) 98 11/01/18 09:00 Constitutional: Yes: No Distress, Calm Cardiovascular: Yes: Regular Rate and Rhythm Respiratory: Yes: Regular Gastrointestinal: Yes: Normal Bowel Sounds, Soft Extremities: Yes: Erythema (RLE edema/erythema, +tenderness (slightly less)) Edema: Yes Integumentary: Yes: Erythema Neurological: Yes: Alert Labs: CBC, BMP 10/31/18 07:00 10/31/18 07:00 - ....Imaging X-ray: Report Reviewed Problem List - Problems (1) Recurrent cellulitis of lower extremity Code(s): L03.119 - CELLULITIS OF UNSPECIFIED PART OF LIMB Assessment/Plan 78 y.o. male with PMH of Parkinsons and multiple episodes of RLE cellulitis presents with c/o increased RLE erythema/warmth/tenderness with ambulation RLE cellulitis - still with significant erythema/edema - continue Unasyn for now
--- NOTE | 2018-11-01 18:11 | PN ---
Progress Note, Physician - Current Medication List Current Medications: Active Medications Atorvastatin Calcium (Lipitor -) 80 mg PO HS [facility] Last Admin: 10/31/18 21:01 Dose: 80 mg Carbidopa/Levodopa/Entacapone (Stalevo 200 -) 1 each PO QID [facility] Last Admin: 11/01/18 17:29 Dose: 1 each Carvedilol (Coreg -) 6.25 mg PO BID [facility] Last Admin: 11/01/18 10:10 Dose: 6.25 mg Furosemide (Lasix -) 40 mg PO DAILY [facility] Last Admin: 11/01/18 10:10 Dose: 40 mg Gabapentin (Neurontin -) 600 mg PO BID [facility] Last Admin: 11/01/18 10:10 Dose: 600 mg Heparin Sodium (Porcine) (Heparin -) 5,000 unit SQ TID [facility] Last Admin: 11/01/18 14:32 Dose: 5,000 unit Ampicillin Sodium/Sulbactam (Sodium 3 gm/ Sodium Chloride) 100 mls @ 200 mls/ hr IVPB Q8H-IV [facility] Last Admin: 11/01/18 10:09 Dose: 200 mls/hr Selegiline 5 Mg Cap 1 each PO BID [facility] Last Admin: 11/01/18 10:11 Dose: 1 each Nystatin (Mycostatin Ointment -) 1 applic TP BID [facility] Last Admin: 11/01/18 11:36 Dose: 1 applic - Objective Vital Signs: Vital Signs Temperature 97.9 F 11/01/18 14:35 Pulse Rate 76 11/01/18 14:35 Respiratory Rate 18 11/01/18 14:35 Blood Pressure 105/58 L 11/01/18 14:35 O2 Sat by Pulse Oximetry (%) 98 11/01/18 09:00 Labs: CBC, BMP 10/31/18 07:00 10/31/18 07:00
--- NOTE | 2018-11-01 18:12 | PN ---
Progress Note, Physician - Current Medication List Current Medications: Active Medications Atorvastatin Calcium (Lipitor -) 80 mg PO HS [facility] Last Admin: 10/31/18 21:01 Dose: 80 mg Carbidopa/Levodopa/Entacapone (Stalevo 200 -) 1 each PO QID [facility] Last Admin: 11/01/18 17:29 Dose: 1 each Carvedilol (Coreg -) 6.25 mg PO BID [facility] Last Admin: 11/01/18 10:10 Dose: 6.25 mg Furosemide (Lasix -) 40 mg PO DAILY [facility] Last Admin: 11/01/18 10:10 Dose: 40 mg Gabapentin (Neurontin -) 600 mg PO BID [facility] Last Admin: 11/01/18 10:10 Dose: 600 mg Heparin Sodium (Porcine) (Heparin -) 5,000 unit SQ TID [facility] Last Admin: 11/01/18 14:32 Dose: 5,000 unit Ampicillin Sodium/Sulbactam (Sodium 3 gm/ Sodium Chloride) 100 mls @ 200 mls/ hr IVPB Q8H-IV [facility] Last Admin: 11/01/18 10:09 Dose: 200 mls/hr Selegiline 5 Mg Cap 1 each PO BID [facility] Last Admin: 11/01/18 10:11 Dose: 1 each Nystatin (Mycostatin Ointment -) 1 applic TP BID [facility] Last Admin: 11/01/18 11:36 Dose: 1 applic - Objective Vital Signs: Vital Signs Temperature 97.9 F 11/01/18 14:35 Pulse Rate 76 11/01/18 14:35 Respiratory Rate 18 11/01/18 14:35 Blood Pressure 105/58 L 11/01/18 14:35 O2 Sat by Pulse Oximetry (%) 98 11/01/18 09:00 Labs: CBC, BMP 10/31/18 07:00 10/31/18 07:00
[2018-11-01] MEDS: ATORVASTATIN CA 80 MG TABLET (FP) PO SCH (21:52)
[2018-11-02] MEDS ORDERED: PT OWN MED DRAWER 7, Y5N ONE ×3 (00:55→13:43)
[2018-11-02] MEDS: AMPICILLIN NA/SULBACTAM NA 3 GM in SODIUM CHLORIDE 100 ML IVPB SCH ×3 (02:51→17:09)
[2018-11-02] MEDS: HEPARIN NA (PORCINE) 5,000 UNITS/ML 1ML VIAL SQ SCH ×3 (06:13→22:07)
[2018-11-02] MEDS: GABAPENTIN 300 MG CAPSULE (FP) PO SCH ×2 (09:46→22:07)
[2018-11-02] MEDS: CARVEDILOL 6.25 MG TABLET (FP) PO SCH ×2 (09:47→22:07)
[2018-11-02] MEDS: FUROSEMIDE 40 MG TABLET (FP) PO SCH (09:47)
[2018-11-02] MEDS: SELEGILINE 5 MG PO SCH ×2 (09:47→22:08)
[2018-11-02] MEDS: CARBIDOP 50MG/LEVODOPA 200MG/ENTACAPONE 200MG TABLET PO SCH ×4 (09:48→22:08)
[2018-11-02] MEDS: NYSTATIN 100000 UNIT/GM TOPICAL OINTMENT 15 GM TUBE TP SCH ×2 (09:50→22:07)
--- NOTE | 2018-11-02 13:11 | CONSULT ---
Consult Consult Specialty:: Podiatry Reason for Consultation:: Pretrophic wound 3rd toe right. Cellulitis re- occuring. - History of Present Illness Chief Complaint: Cellulitis History of Present Illness: Recurrent cellulitis lower extremity right. - History Source History Provided By: Patient - Alcohol/Substance Use Hx Alcohol Use: No - Smoking History Smoking history: Never smoked Have you smoked in the past 12 months: No Home Medications - Allergies Allergies/Adverse Reactions: Allergies Allergy/AdvReac Type Severity Reaction Status Date / Time No Known Allergies Allergy Verified 10/30/18 13:09 - Home Medications Home Medications: Ambulatory Orders Atorvastatin Ca [Lipitor] 80 mg PO HS 10/08/18 Carbidopa/Levodopa/Entacapone [Carbidopa-Levodopa 200 mg-Enta] 1 each PO QID 10/14 Carvedilol [Coreg -] 6.25 mg PO BID 10/08/18 Furosemide 40 mg DAILY 10/08/18 Gabapentin 600 mg PO BID 10/08/18 Selegiline 5 mg BID 10/08/18 Bacitracin - [Bacitracin Topical Ointment -] 1 applic TP DAILY #1 tube 10/11/18 Physical Exam Vital Signs: Vital Signs Temperature 97.3 F L 11/02/18 09:30 Pulse Rate 76 11/02/18 09:30 Respiratory Rate 18 11/02/18 09:30 Blood Pressure 107/64 11/02/18 09:30 O2 Sat by Pulse Oximetry (%) 98 11/01/18 21:00 Wound/Incision: Yes: Other (Cellulitis right foot and leg, +grade 0 wound tip of 3rd toe right, pvd,) Labs: CBC, BMP 10/31/18 07:00 10/31/18 07:00 Assessment/Plan improving cellulitis dm with pvd ivabx as per id. foot care q 8weeks outpatient. diabetic shoes to prevent breakdown.
--- NOTE | 2018-11-02 16:49 | PN ---
Progress Note, Physician History of Present Illness: Pt states he has less pain in RT leg. Now able to ambulate. tolerating antibiotics. Has no new complaints. - Current Medication List Current Medications: Active Medications Atorvastatin Calcium (Lipitor -) 80 mg PO HS [facility] Last Admin: 11/01/18 21:52 Dose: 80 mg Carbidopa/Levodopa/Entacapone (Stalevo 200 -) 1 each PO QID [facility] Last Admin: 11/02/18 14:01 Dose: 1 each Carvedilol (Coreg -) 6.25 mg PO BID [facility] Last Admin: 11/02/18 09:47 Dose: 6.25 mg Furosemide (Lasix -) 40 mg PO DAILY [facility] Last Admin: 11/02/18 09:47 Dose: 40 mg Gabapentin (Neurontin -) 600 mg PO BID [facility] Last Admin: 11/02/18 09:46 Dose: 600 mg Heparin Sodium (Porcine) (Heparin -) 5,000 unit SQ TID [facility] Last Admin: 11/02/18 14:01 Dose: 5,000 unit Ampicillin Sodium/Sulbactam (Sodium 3 gm/ Sodium Chloride) 100 mls @ 200 mls/ hr IVPB Q8H-IV [facility] Last Admin: 11/02/18 09:48 Dose: 200 mls/hr Selegiline 5 Mg Cap 1 each PO BID [facility] Last Admin: 11/02/18 09:47 Dose: 1 each Nystatin (Mycostatin Ointment -) 1 applic TP BID [facility] Last Admin: 11/02/18 09:50 Dose: 1 applic - Objective Vital Signs: Vital Signs Temperature 97.2 F L 11/02/18 13:51 Pulse Rate 75 11/02/18 13:51 Respiratory Rate 17 11/02/18 13:51 Blood Pressure 126/66 11/02/18 13:51 O2 Sat by Pulse Oximetry (%) 98 11/02/18 09:00 Constitutional: Yes: No Distress, Calm Cardiovascular: Yes: Regular Rate and Rhythm Respiratory: Yes: Regular Gastrointestinal: Yes: Normal Bowel Sounds, Soft Extremities: Yes: Erythema (RLE erythema (less tender/warm), +edema) Neurological: Yes: Alert Labs: CBC, BMP 10/31/18 07:00 10/31/18 07:00 Problem List - Problems (1) Recurrent cellulitis of lower extremity Code(s): L03.119 - CELLULITIS OF UNSPECIFIED PART OF LIMB Assessment/Plan 78 y.o. male with PMH of Parkinsons and multiple episodes of RLE cellulitis presents with c/o increased RLE erythema/warmth/tenderness with ambulation RLE cellulitis -- continue Unasyn IV -- appears to be improving, still with significant edema
[2018-11-02] MEDS: ATORVASTATIN CA 80 MG TABLET (FP) PO SCH (22:07)
--- NOTE | 2018-11-02 23:37 | PN ---
Progress Note, Physician History of Present Illness: Increase erythema RLE w/ edema - Current Medication List Current Medications: Active Medications Atorvastatin Calcium (Lipitor -) 80 mg PO HS [facility] Last Admin: 11/02/18 22:07 Dose: 80 mg Carbidopa/Levodopa/Entacapone (Stalevo 200 -) 1 each PO QID [facility] Last Admin: 11/02/18 22:08 Dose: 1 each Carvedilol (Coreg -) 6.25 mg PO BID [facility] Last Admin: 11/02/18 22:07 Dose: 6.25 mg Furosemide (Lasix -) 40 mg PO DAILY [facility] Last Admin: 11/02/18 09:47 Dose: 40 mg Gabapentin (Neurontin -) 600 mg PO BID [facility] Last Admin: 11/02/18 22:07 Dose: 600 mg Heparin Sodium (Porcine) (Heparin -) 5,000 unit SQ TID [facility] Last Admin: 11/02/18 22:07 Dose: 5,000 unit Ampicillin Sodium/Sulbactam (Sodium 3 gm/ Sodium Chloride) 100 mls @ 200 mls/ hr IVPB Q8H-IV [facility] Last Admin: 11/02/18 17:09 Dose: 200 mls/hr Selegiline 5 Mg Cap 1 each PO BID [facility] Last Admin: 11/02/18 22:08 Dose: 1 each Nystatin (Mycostatin Ointment -) 1 applic TP BID [facility] Last Admin: 11/02/18 22:07 Dose: 1 applic - Objective Vital Signs: Vital Signs Temperature 97.9 F 11/02/18 23:19 Pulse Rate 58 L 11/02/18 23:19 Respiratory Rate 18 11/02/18 23:19 Blood Pressure 108/58 L 11/02/18 23:19 O2 Sat by Pulse Oximetry (%) 98 11/02/18 09:00 Neck: Yes: WNL, Supple Cardiovascular: Yes: WNL, Regular Rate and Rhythm Respiratory: Yes: WNL, Regular, CTA Bilaterally Gastrointestinal: Yes: WNL, Normal Bowel Sounds, Soft Extremities: Yes: Other ((+) erythema to under rt knee) Edema: LLE: 2+ Labs: CBC, BMP 10/31/18 07:00 10/31/18 07:00 Problem List - Problems (1) Recurrent cellulitis of lower extremity Assessment/Plan: Cont IV antibxs Rt 3rd toe ulcer Follow cultures Doppler of lower ext was negative for DVT Code(s): L03.119 - CELLULITIS OF UNSPECIFIED PART OF LIMB (2) Diabetes Assessment/Plan: Sliding scale w/ coverage Check HgA1c Code(s): E11.9 - TYPE 2 DIABETES MELLITUS WITHOUT COMPLICATIONS (3) Parkinsons disease Assessment/Plan: Cont sinemet Code(s): G20 - PARKINSON'S DISEASE (4) HTN (hypertension) Assessment/Plan: Cont coreg/lasix Code(s): I10 - ESSENTIAL (PRIMARY) HYPERTENSION (5) HLD (hyperlipidemia) Assessment/Plan: Cont lipitor Code(s): E78.5 - HYPERLIPIDEMIA, UNSPECIFIED (6) Peripheral neuropathy Assessment/Plan: Cont neurontin Code(s): G62.9 - POLYNEUROPATHY, UNSPECIFIED
[2018-11-03] MEDS ORDERED: PT OWN MED DRAWER 7, Y5N ONE ×6 (00:31→20:19)
[2018-11-03] MEDS: AMPICILLIN NA/SULBACTAM NA 3 GM in SODIUM CHLORIDE 100 ML IVPB SCH ×3 (02:00→17:43)
[2018-11-03] MEDS: HEPARIN NA (PORCINE) 5,000 UNITS/ML 1ML VIAL SQ SCH ×3 (06:37→21:30)
[2018-11-03 07:32] LABS: ALBUMIN 2.6 g/dl (3.4-5.0); ALK PHOS 68 U/L (45-117); ANION GAP 6 MMOL/L (8-16); BILIRUBIN,TOTAL 0.4 mg/dL (0.2-1); BLOOD UREA NITROGEN 18 mg/dL (7-18); CALCIUM 8.6 mg/dL (8.5-10.1); CHLORIDE 106 mmol/L (98-107); CO2 27 mmol/L (21-32); CREATININE 0.7 mg/dL (0.55-1.3); GLUCOSE,RANDOM 99 mg/dL (74-106); POTASSIUM 3.8 mmol/L (3.5-5.1); SGOT/AST 14 U/L (15-37); SGPT/ALT 8 U/L (13-61); SODIUM 139 mmol/L (136-145); TOT PROT 5.7 g/dl (6.4-8.2)
[2018-11-03 08:31] LABS: BASO % 0.4 % (0-2.0); EOS % 2.6 % (0-4.5); HEMATOCRIT 35.1 % (35.4-49); HEMOGLOBIN 12.6 GM/dL (11.7-16.9); LYMPH % 37.2 % (8-40); MCH 34.1 pg (25.7-33.7); MEAN CELL VOLUME 94.5 fl (80-96); MEAN PLT VOLUME 8.7 fl (7.5-11.1); MONO % 7.2 % (3.8-10.2); NEUT % 52.6 % (42.8-82.8); PLATELET COUNT 133 K/MM3 (134-434); RBC 3.71 M/mm3 (4.00-5.60); RDW 14.1 % (11.9-15.9); WHITE BLOOD COUNT 4.3 K/mm3 (4.0-10.0)
--- NOTE | 2018-11-03 10:06 | PN ---
Progress Note (short form) - Note Progress Note: FUV right foot. No pain. vss, tmax 97.8 +resolved cellulitis of foot, +erythema right leg from malleoli proximal to midcalf, -drainage, wbc=4.3 vasculitis? cellulitis? pvd Foot care [id number]. Moisturizer to b/l feet. Will follow till dc. Diabetic shoes.
[2018-11-03] MEDS: GABAPENTIN 300 MG CAPSULE (FP) PO SCH ×2 (10:33→18:19)
[2018-11-03] MEDS: CARVEDILOL 6.25 MG TABLET (FP) PO SCH (10:33)
[2018-11-03] MEDS: FUROSEMIDE 40 MG TABLET (FP) PO SCH (10:33)
[2018-11-03] MEDS: CARBIDOP 50MG/LEVODOPA 200MG/ENTACAPONE 200MG TABLET PO SCH ×4 (10:36→18:20)
[2018-11-03] MEDS: SELEGILINE 5 MG PO SCH ×2 (10:36→21:30)
[2018-11-03] MEDS: AMMONIUM LACTATE 12% LOTION 225 GM BOTTLE TP PRN (13:52)
[2018-11-03] MEDS: NYSTATIN 100000 UNIT/GM TOPICAL OINTMENT 15 GM TUBE TP SCH ×2 (13:55→21:30)
--- NOTE | 2018-11-03 14:22 | PN ---
Progress Note, Physician History of Present Illness: doing well no new issues still with swelling of the leg erythema resolved - Current Medication List Current Medications: Active Medications Atorvastatin Calcium (Lipitor -) 80 mg PO HS [facility] Last Admin: 11/02/18 22:07 Dose: 80 mg Carbidopa/Levodopa/Entacapone (Stalevo 200 -) 1 each PO QID [facility] Last Admin: 11/03/18 13:51 Dose: 1 each Carvedilol (Coreg -) 6.25 mg PO BID [facility] Last Admin: 11/03/18 10:33 Dose: 6.25 mg Furosemide (Lasix -) 40 mg PO DAILY [facility] Last Admin: 11/03/18 10:33 Dose: 40 mg Gabapentin (Neurontin -) 600 mg PO BID [facility] Last Admin: 11/03/18 10:33 Dose: 600 mg Heparin Sodium (Porcine) (Heparin -) 5,000 unit SQ TID [facility] Last Admin: 11/03/18 13:51 Dose: 5,000 unit Ampicillin Sodium/Sulbactam (Sodium 3 gm/ Sodium Chloride) 100 mls @ 200 mls/ hr IVPB Q8H-IV [facility] Last Admin: 11/03/18 10:33 Dose: 200 mls/hr Lactic Acid (Lac-Hydrin 12) 1 applic TP BID PRN PRN Reason: xerosis Last Admin: 11/03/18 13:52 Dose: 1 applic Selegiline 5 Mg Cap 1 each PO BID [facility] Last Admin: 11/03/18 10:36 Dose: 1 each Nystatin (Mycostatin Ointment -) 1 applic TP BID [facility] Last Admin: 11/03/18 13:55 Dose: 1 applic - Objective Vital Signs: Vital Signs Temperature 97.6 F 11/03/18 10:00 Pulse Rate 67 11/03/18 10:00 Respiratory Rate 18 11/03/18 10:00 Blood Pressure 116/60 11/03/18 10:00 O2 Sat by Pulse Oximetry (%) 98 11/02/18 21:00 Constitutional: Yes: No Distress, Calm Cardiovascular: Yes: Regular Rate and Rhythm Respiratory: Yes: Regular, CTA Bilaterally Musculoskeletal: Yes: WNL Extremities: Yes: Erythema (resolved), Other (swelling) Neurological: Yes: Alert, Oriented Psychiatric: Yes: Alert, Oriented Labs: CBC, BMP 11/03/18 06:00 11/03/18 06:00 Assessment/Plan this patient with multiple medical problems cellulitis erythem of the rt leg plan continue current mgmt will be able to switch to oral abx for couple of days augmentin 500 mg po bid for another 5 days
[2018-11-03] MEDS: ATORVASTATIN CA 80 MG TABLET (FP) PO SCH (21:30)
--- NOTE | 2018-11-03 23:32 | PN ---
Progress Note, Physician History of Present Illness: No new complaints - Current Medication List Current Medications: Active Medications Atorvastatin Calcium (Lipitor -) 80 mg PO HS [facility] Last Admin: 11/03/18 21:30 Dose: 80 mg Carbidopa/Levodopa/Entacapone (Stalevo 200 -) 1 each PO 0700,1100,1500,1900 [facility] Last Admin: 11/03/18 18:20 Dose: 1 each Furosemide (Lasix -) 40 mg PO DAILY [facility] Last Admin: 11/03/18 10:33 Dose: 40 mg Gabapentin (Neurontin -) 600 mg PO 0700,1900 [facility] Last Admin: 11/03/18 18:19 Dose: 600 mg Heparin Sodium (Porcine) (Heparin -) 5,000 unit SQ TID [facility] Last Admin: 11/03/18 21:30 Dose: 5,000 unit Ampicillin Sodium/Sulbactam (Sodium 3 gm/ Sodium Chloride) 100 mls @ 200 mls/ hr IVPB Q8H-IV [facility] Last Admin: 11/03/18 17:43 Dose: 200 mls/hr Lactic Acid (Lac-Hydrin 12) 1 applic TP BID PRN PRN Reason: xerosis Last Admin: 11/03/18 13:52 Dose: 1 applic Selegiline 5 Mg Cap 1 each PO BID [facility] Last Admin: 11/03/18 21:30 Dose: 1 each Nystatin (Mycostatin Ointment -) 1 applic TP BID [facility] Last Admin: 11/03/18 21:30 Dose: 1 applic - Objective Vital Signs: Vital Signs Temperature 97.5 F L 11/03/18 22:00 Pulse Rate 68 11/03/18 22:00 Respiratory Rate 18 11/03/18 22:00 Blood Pressure 127/68 11/03/18 22:00 O2 Sat by Pulse Oximetry (%) 96 11/03/18 21:00 Neck: Yes: WNL, Supple Cardiovascular: Yes: WNL, Regular Rate and Rhythm Respiratory: Yes: WNL, Regular, CTA Bilaterally Gastrointestinal: Yes: WNL, Normal Bowel Sounds, Soft Labs: CBC, BMP 11/03/18 06:00 11/03/18 06:00 Problem List - Problems (1) Recurrent cellulitis of lower extremity Assessment/Plan: Cont IV antibxs Rt 3rd toe ulcer Follow cultures Doppler of lower ext was negative for DVT Code(s): L03.119 - CELLULITIS OF UNSPECIFIED PART OF LIMB (2) Diabetes Assessment/Plan: Sliding scale w/ coverage Code(s): E11.9 - TYPE 2 DIABETES MELLITUS WITHOUT COMPLICATIONS (3) Parkinsons disease Assessment/Plan: Cont sinemet Code(s): G20 - PARKINSON'S DISEASE (4) HTN (hypertension) Assessment/Plan: BP was decreased Will hold coreg and monitor Cont lasix Code(s): I10 - ESSENTIAL (PRIMARY) HYPERTENSION (5) HLD (hyperlipidemia) Assessment/Plan: Cont lipitor Code(s): E78.5 - HYPERLIPIDEMIA, UNSPECIFIED (6) Peripheral neuropathy Assessment/Plan: Cont neurontin Code(s): G62.9 - POLYNEUROPATHY, UNSPECIFIED
[2018-11-04] MEDS: AMPICILLIN NA/SULBACTAM NA 3 GM in SODIUM CHLORIDE 100 ML IVPB SCH ×3 (01:01→17:16)
[2018-11-04] MEDS ORDERED: PT OWN MED DRAWER 7, Y5N ONE ×4 (05:19→20:45)
[2018-11-04] MEDS: CARBIDOP 50MG/LEVODOPA 200MG/ENTACAPONE 200MG TABLET PO SCH ×4 (06:14→18:23)
[2018-11-04] MEDS: GABAPENTIN 300 MG CAPSULE (FP) PO SCH ×2 (06:14→18:23)
[2018-11-04] MEDS: HEPARIN NA (PORCINE) 5,000 UNITS/ML 1ML VIAL SQ SCH ×3 (06:14→21:27)
[2018-11-04] MEDS: AMMONIUM LACTATE 12% LOTION 225 GM BOTTLE TP PRN (09:38)
[2018-11-04] MEDS: FUROSEMIDE 40 MG TABLET (FP) PO SCH (09:39)
[2018-11-04] MEDS: NYSTATIN 100000 UNIT/GM TOPICAL OINTMENT 15 GM TUBE TP SCH ×2 (09:39→21:27)
[2018-11-04] MEDS: SELEGILINE 5 MG PO SCH ×2 (09:40→21:27)
--- NOTE | 2018-11-04 13:29 | PN ---
Progress Note, Physician - Current Medication List Current Medications: Active Medications Atorvastatin Calcium (Lipitor -) 80 mg PO HS [facility] Last Admin: 11/03/18 21:30 Dose: 80 mg Carbidopa/Levodopa/Entacapone (Stalevo 200 -) 1 each PO 0700,1100,1500,1900 [facility] Last Admin: 11/04/18 11:00 Dose: 1 each Furosemide (Lasix -) 40 mg PO DAILY [facility] Last Admin: 11/04/18 09:39 Dose: 40 mg Gabapentin (Neurontin -) 600 mg PO 0700,1900 [facility] Last Admin: 11/04/18 06:14 Dose: 600 mg Heparin Sodium (Porcine) (Heparin -) 5,000 unit SQ TID [facility] Last Admin: 11/04/18 06:14 Dose: 5,000 unit Ampicillin Sodium/Sulbactam (Sodium 3 gm/ Sodium Chloride) 100 mls @ 200 mls/ hr IVPB Q8H-IV [facility] Last Admin: 11/04/18 09:40 Dose: 200 mls/hr Lactic Acid (Lac-Hydrin 12) 1 applic TP BID PRN PRN Reason: xerosis Last Admin: 11/04/18 09:38 Dose: 1 applic Selegiline 5 Mg Cap 1 each PO BID [facility] Last Admin: 11/04/18 09:40 Dose: 1 each Nystatin (Mycostatin Ointment -) 1 applic TP BID [facility] Last Admin: 11/04/18 09:39 Dose: 1 applic - Objective Vital Signs: Vital Signs Temperature 97.0 F L 11/04/18 10:00 Pulse Rate 72 11/04/18 10:00 Respiratory Rate 20 11/04/18 10:00 Blood Pressure 117/58 L 11/04/18 10:00 O2 Sat by Pulse Oximetry (%) 96 11/03/18 21:00 Labs: CBC, BMP 11/03/18 06:00 11/03/18 06:00
--- NOTE | 2018-11-04 16:04 | PN ---
Progress Note (short form) - Note Progress Note: FUV right foot. No pain. vss, tmax 97.8 +resolved cellulitis of foot, +improved erythema right leg from malleoli proximal to midcalf, -drainage, wbc=4.3 vasculitis? cellulitis? pvd Foot care [id number]. continue Moisturizer to b/l feet. Will follow till dc. Diabetic shoes. Do not cut his own toe nails.
[2018-11-04] MEDS: ATORVASTATIN CA 80 MG TABLET (FP) PO SCH (21:27)
--- NOTE | 2018-11-04 21:50 | PN ---
Progress Note, Physician History of Present Illness: No new complaints however slight improvement in erythema - Current Medication List Current Medications: Active Medications Atorvastatin Calcium (Lipitor -) 80 mg PO HS [facility] Last Admin: 11/04/18 21:27 Dose: 80 mg Carbidopa/Levodopa/Entacapone (Stalevo 200 -) 1 each PO 0700,1100,1500,1900 [facility] Last Admin: 11/04/18 18:23 Dose: 1 each Furosemide (Lasix -) 40 mg PO DAILY [facility] Last Admin: 11/04/18 09:39 Dose: 40 mg Gabapentin (Neurontin -) 600 mg PO 0700,1900 [facility] Last Admin: 11/04/18 18:23 Dose: 600 mg Heparin Sodium (Porcine) (Heparin -) 5,000 unit SQ TID [facility] Last Admin: 11/04/18 21:27 Dose: 5,000 unit Ampicillin Sodium/Sulbactam (Sodium 3 gm/ Sodium Chloride) 100 mls @ 200 mls/ hr IVPB Q8H-IV [facility] Last Admin: 11/04/18 17:16 Dose: 200 mls/hr Lactic Acid (Lac-Hydrin 12) 1 applic TP BID PRN PRN Reason: xerosis Last Admin: 11/04/18 09:38 Dose: 1 applic Selegiline 5 Mg Cap 1 each PO BID [facility] Last Admin: 11/04/18 21:27 Dose: 1 each Nystatin (Mycostatin Ointment -) 1 applic TP BID [facility] Last Admin: 11/04/18 21:27 Dose: 1 applic - Objective Vital Signs: Vital Signs Temperature 97.8 F 11/04/18 18:00 Pulse Rate 62 11/04/18 18:00 Respiratory Rate 20 11/04/18 18:00 Blood Pressure 139/72 11/04/18 18:00 O2 Sat by Pulse Oximetry (%) 96 11/04/18 09:00 Neck: Yes: WNL, Supple Cardiovascular: Yes: WNL, Regular Rate and Rhythm Respiratory: Yes: WNL, Regular, CTA Bilaterally Gastrointestinal: Yes: WNL, Normal Bowel Sounds, Soft Extremities: Yes: Other ((+) erythema RLE decreased warmth and swelling) Labs: CBC, BMP 11/03/18 06:00 11/03/18 06:00 Problem List - Problems (1) Recurrent cellulitis of lower extremity Assessment/Plan: Cont IV antibxs Rt 3rd toe ulcer Follow cultures Doppler of lower ext was negative for DVT Code(s): L03.119 - CELLULITIS OF UNSPECIFIED PART OF LIMB (2) Diabetes Assessment/Plan: Sliding scale w/ coverage Code(s): E11.9 - TYPE 2 DIABETES MELLITUS WITHOUT COMPLICATIONS (3) Parkinsons disease Assessment/Plan: Cont sinemet Code(s): G20 - PARKINSON'S DISEASE (4) HTN (hypertension) Assessment/Plan: BP was decreased Will hold coreg and monitor Cont lasix Code(s): I10 - ESSENTIAL (PRIMARY) HYPERTENSION (5) HLD (hyperlipidemia) Assessment/Plan: Cont lipitor Code(s): E78.5 - HYPERLIPIDEMIA, UNSPECIFIED (6) Peripheral neuropathy Assessment/Plan: Cont neurontin Code(s): G62.9 - POLYNEUROPATHY, UNSPECIFIED
[2018-11-05] MEDS: AMPICILLIN NA/SULBACTAM NA 3 GM in SODIUM CHLORIDE 100 ML IVPB SCH ×2 (01:25→09:56)
[2018-11-05] MEDS: CARBIDOP 50MG/LEVODOPA 200MG/ENTACAPONE 200MG TABLET PO SCH ×3 (06:20→15:38)
[2018-11-05] MEDS: HEPARIN NA (PORCINE) 5,000 UNITS/ML 1ML VIAL SQ SCH ×2 (06:20→15:35)
[2018-11-05] MEDS: GABAPENTIN 300 MG CAPSULE (FP) PO SCH (06:20)
[2018-11-05 07:51] LABS: BASO % 0.4 % (0-2.0); EOS % 5.3 % (0-4.5); HEMATOCRIT 38.5 % (35.4-49); HEMOGLOBIN 13.5 GM/dL (11.7-16.9); LYMPH % 37.5 % (8-40); MCH 33.2 pg (25.7-33.7); MCHC 35.2 g/dl (32.0-35.9); MEAN CELL VOLUME 94.2 fl (80-96); MEAN PLT VOLUME 8.3 fl (7.5-11.1); MONO % 7.2 % (3.8-10.2); NEUT % 49.6 % (42.8-82.8); PLATELET COUNT 152 K/MM3 (134-434); RBC 4.08 M/mm3 (4.00-5.60); RDW 13.8 % (11.9-15.9); WHITE BLOOD COUNT 4.6 K/mm3 (4.0-10.0)
[2018-11-05 08:28] LABS: ALBUMIN 2.8 g/dl (3.4-5.0); ALK PHOS 74 U/L (45-117); ANION GAP 1 MMOL/L (8-16); BILIRUBIN,TOTAL 0.7 mg/dL (0.2-1); BLOOD UREA NITROGEN 16 mg/dL (7-18); CALCIUM 8.7 mg/dL (8.5-10.1); CHLORIDE 106 mmol/L (98-107); CO2 33 mmol/L (21-32); CREATININE 0.9 mg/dL (0.55-1.3); GLUCOSE,RANDOM 113 mg/dL (74-106); POTASSIUM 4.3 mmol/L (3.5-5.1); SGOT/AST 15 U/L (15-37); SGPT/ALT 9 U/L (13-61); SODIUM 140 mmol/L (136-145); TOT PROT 6.2 g/dl (6.4-8.2)
[2018-11-05] MEDS ORDERED: PT OWN MED DRAWER 7, Y5N ONE ×2 (09:52→17:12)
[2018-11-05] MEDS: SELEGILINE 5 MG PO SCH (09:56)
[2018-11-05] MEDS: FUROSEMIDE 40 MG TABLET (FP) PO SCH (09:56)
[2018-11-05] MEDS: NYSTATIN 100000 UNIT/GM TOPICAL OINTMENT 15 GM TUBE TP SCH (10:05)
--- NOTE | 2018-11-05 13:02 | PN ---
Progress Note, Physician History of Present Illness: stable doing well no issues - Current Medication List Current Medications: Active Medications Atorvastatin Calcium (Lipitor -) 80 mg PO HS [facility] Last Admin: 11/04/18 21:27 Dose: 80 mg Carbidopa/Levodopa/Entacapone (Stalevo 200 -) 1 each PO 0700,1100,1500,1900 [facility] Last Admin: 11/05/18 11:41 Dose: 1 each Furosemide (Lasix -) 40 mg PO DAILY [facility] Last Admin: 11/05/18 09:56 Dose: 40 mg Gabapentin (Neurontin -) 600 mg PO 0700,1900 [facility] Last Admin: 11/05/18 06:20 Dose: 600 mg Heparin Sodium (Porcine) (Heparin -) 5,000 unit SQ TID [facility] Last Admin: 11/05/18 06:20 Dose: 5,000 unit Ampicillin Sodium/Sulbactam (Sodium 3 gm/ Sodium Chloride) 100 mls @ 200 mls/ hr IVPB Q8H-IV [facility] Last Admin: 11/05/18 09:56 Dose: 200 mls/hr Lactic Acid (Lac-Hydrin 12) 1 applic TP BID PRN PRN Reason: xerosis Last Admin: 11/04/18 09:38 Dose: 1 applic Selegiline 5 Mg Cap 1 each PO BID [facility] Last Admin: 11/05/18 09:56 Dose: 1 each Nystatin (Mycostatin Ointment -) 1 applic TP BID [facility] Last Admin: 11/05/18 10:05 Dose: 1 applic - Objective Vital Signs: Vital Signs Temperature 97.3 F L 11/05/18 09:54 Pulse Rate 75 11/05/18 09:54 Respiratory Rate 11/05/18 09:54 Blood Pressure 119/70 11/05/18 09:54 O2 Sat by Pulse Oximetry (%) 98 11/05/18 09:00 Constitutional: Yes: No Distress, Calm Cardiovascular: Yes: Regular Rate and Rhythm Respiratory: Yes: Regular, CTA Bilaterally Gastrointestinal: Yes: Normal Bowel Sounds, Soft Musculoskeletal: Yes: WNL Extremities: Yes: Other (swelling present) Neurological: Yes: Alert, Oriented Psychiatric: Yes: Alert, Oriented Labs: CBC, BMP 11/05/18 07:20 11/05/18 07:20 Assessment/Plan this patient with multiple medical problems cellulitis erythem of the rt leg plan monitor the leg augmentin for 3 more days 500 mg po bid rest as per the team
[2018-11-05 15:07] VITALS: TEMP 97.3
[2018-11-05] MEDS ORDERED: AMOX TR/POT CLAV 500MG/125MG TABLETS (FP) PO SCH (17:30)
[2018-11-05 18:10] VITALS: BP 121/69; PULSE 59
--- NOTE | 2018-11-05 18:41 | PN ---
Progress Note (short form) - Note Progress Note: FUV right foot. No pain. vss, tmax 97.9 +resolved cellulitis of foot, +improved erythema right leg from malleoli proximal to midcalf, -drainage, wbc=4.6 vasculitis? cellulitis? pvd DC to home today. Foot care q8 weeks. Will follow in office met and daughter today.
== END 2018-11-05 18:50 | disposition home health service (06) | DRG 603 ==
LOC: JER 12:34 → JERBED 17:20 → J5S 21:37
PROVIDERS: ADMIT Internal Medicine; ATTEND Internal Medicine
DX: L03.115 Cellulitis of right lower limb (principal); L03.031 Cellulitis of right toe; E11.51 Type 2 diabetes mellitus with diabetic peripheral angiopathy without gangrene; I10 Essential (primary) hypertension; I25.2 Old myocardial infarction; G20 Parkinson's disease
CPT/HCPCS: 36415; 73610-TC-RT-FY; 73630-TC-RT-FY; 80053; 81003; 81015; 83036; 83605; 83735; 85025; 93971-TC; 99283-25; J1644; J7030

== ENCOUNTER 2019-07-11 15:58 | Inpatient (IN) | payer OTHER, BC ==
[2019-07-11 16:30] VITALS: BMI 24.3
--- NOTE | 2019-07-11 16:54 | PDOC ---
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 Per the patient, he was on a stool device when his stopped holding it, causing the patient to fall into the tub. He denies hitting his head and presents with complaints of scrapes on his arms. The patient denies the following: fevers, chills, SOB, chest pain, nausea, vomiting, dysuria, hematuria, diarrhea, hemtochezia. Endorses leg swelling that is stable and endorses erythema on the right leg. Endorses neck pain s/p fall Allergies: NKDA <Emery Morin - Last Filed: 07/11/19 19:49> <Lindsay Quigley - Last Filed: 07/11/19 20:20> - General Chief Complaint: Injury Stated Complaint: FALL Past History - Past Medical History Cardiac Disorders: Yes (NM x 3) COPD: No Diabetes: Yes (Pre- diabetic) HTN: Yes - Surgical History Orthopedic Surgery: Yes (KNEE SURGERY) - Immunization History Immunization Up to Date: Yes - Suicide/Smoking/Psychosocial Hx Smoking History: Former smoker Have you smoked in the past 12 months: No If you are a former smoker, when did you quit?: 1988 Information on smoking cessation initiated: Yes Hx Alcohol Use: No Drug/Substance Use Hx: No <Emery Morin - Last Filed: 07/11/19 19:49> <Lindsay Quigley - Last Filed: 07/11/19 20:20> - Past Medical History Allergies/Adverse Reactions: Allergies Allergy/AdvReac Type Severity Reaction Status Date / Time No Known Allergies Allergy Verified 10/30/18 13:09 Home Medications: Ambulatory Orders Atorvastatin Ca [Lipitor] 80 mg PO HS 10/08/18 Carbidopa/Levodopa/Entacapone [Carbidopa-Levodopa 200 mg-Enta] 1 each PO QID 10/14 Carvedilol [Coreg -] 6.25 mg PO BID 10/08/18 Furosemide 40 mg PO DAILY 10/08/18 Gabapentin 600 mg PO BID 10/08/18 Selegiline 5 mg PO BID 10/08/18 Amox-Tr/K Cl [Augmentin 500-125mg Tablet -] 1 tab PO BID@0800,1730 #10 tablet Clopidogrel Bisulfate [Clopidogrel] 75 mg PO DAILY 07/11/19 Review of Systems - Review of Systems Able to Perform ROS?: Yes Is the patient limited Greek proficient: No Constitutional: No: Chills, Diaphoresis, Fever, Weakness HEENTM: No: Eye Pain, Ear Pain, Nose Pain, Throat Pain, Mouth Pain Respiratory: No: Cough, Shortness of Breath, Hemoptysis Cardiac (ROS): No: Chest Pain, Lightheadedness, Palpitations, Syncope, Chest Tightness ABD/GI: No: Constipated, Diarrhea, Nausea, Rectal Bleeding, Vomiting, Tarry Stools : No: Burning, Dysuria, Hematuria, Pain Musculoskeletal: Yes: Neck Pain. No: Back Pain, Joint Pain Integumentary: Yes: Lesions. No: Bruising, Erythema, Rash Neurological: No: Headache, Numbness, Tingling, Tremors Psychiatric: No: Change in Appetite Endocrine: No: Unexplained Weight Gain Hematologic/Lymphatic: No: Anemia <Emery Morin - Last Filed: 07/11/19 19:49> *Physical Exam - Vital Signs Last Vital Signs Temp Pulse Resp BP Pulse Ox 99.7 F H 85 20 134/61 97 07/11/19 16:16 07/11/19 16:16 07/11/19 16:16 07/11/19 16:16 07/11/19 16:16 - Physical Exam General Appearance: Yes: Nourished, Appropriately Dressed. No: Apparent Distress, Intoxicated HEENT: positive: EOMI, MELISSA, Normal Voice, Symmetrical, Pharynx Normal, Hearing Grossly Normal. negative: Pale Conjunctivae, Scleral Icterus (R), Scleral Icterus (L), Muffled/Hoarse voice, Pharyngeal Erythema, Tonsillar Exudate, Tonsillar Erythema, Nasal Congestion, Rhinorrhea, Sinus Tenderness Neck: positive: Tender (right cervical paraspinal tenderness approximately C5-6) , Trachea midline, Supple. negative: Lymphadenopathy (R), Lymphadenopathy (L) Respiratory/Chest: positive: Lungs Clear, Decreased Breath Sounds. negative: Chest Tender, Respiratory Distress, Accessory Muscle Use Cardiovascular: positive: Regular Rhythm, Regular Rate, S1, S2. negative: Systolic Murmur Gastrointestinal/Abdominal: positive: Normal Bowel Sounds, Flat, Soft. negative : Tender, Distended, Guarding, Rebound Lymphatic: negative: Adenopathy Musculoskeletal: positive: Normal Inspection. negative: CVA Tenderness, Vertebral Tenderness Extremity: positive: Normal Capillary Refill, Normal Range of Motion, Tender ( Right shoulder tenderness. Left hip tenderness), Pelvis Stable. negative: Normal Inspection (abrasion on left forearm), Swelling, Calf Tenderness Integumentary: positive: Normal Color, Dry, Warm, Erythema (right anterior tib/ fib) Neurologic: positive: interventional technologist II-XII NML intact, Fully Oriented, Alert, Normal Mood/ Affect, Normal Response, Motor Strength 5/5, Other (resting tremor consistent with PD). negative: EOM Palsy, Facial Droop <Emery Morin - Last Filed: 07/11/19 19:49> - Vital Signs Last Vital Signs Temp Pulse Resp BP Pulse Ox 99.7 F H 85 20 134/61 97 07/11/19 16:16 07/11/19 16:16 07/11/19 16:16 07/11/19 16:16 07/11/19 17:14 <Lindsay Quigley - Last Filed: 07/11/19 20:20> ED Treatment Course - LABORATORY CBC & Chemistry Diagram: 07/11/19 17:10 07/11/19 17:10 <Emery Morin - Last Filed: 07/11/19 19:49> - LABORATORY CBC & Chemistry Diagram: 07/11/19 17:10 07/11/19 17:10 - ADDITIONAL ORDERS Additional order review: Laboratory Results 07/11/19 07/11/19 07/11/19 19:20 19:20 19:20 PT with INR 15.20 H INR 1.28 H PTT (Actin FS) 38.8 H VBG pH 7.47 H POC VBG pCO2 36.9 L POC VBG pO2 < 49 H VBG HCO3 26.5 VBG O2 Sat (Emilia) 80.8 H VBG Base Excess 3.5 H Sodium Potassium Chloride Carbon Dioxide Anion Gap BUN Creatinine Est GFR (CKD-EPI)AfAm Est GFR (CKD-EPI)NonAf Random Glucose Lactic Acid Calcium Total Bilirubin AST ALT Alkaline Phosphatase Creatine Kinase Troponin I Total Protein Albumin Urine Color Urine Appearance Urine pH Ur Specific [employer] Urine Protein Urine Glucose (UA) Urine Ketones Urine Blood Urine Nitrite Urine Bilirubin Urine Urobilinogen Ur Leukocyte Esterase 07/11/19 07/11/19 07/11/19 18:50 17:10 17:00 PT with INR INR PTT (Actin FS) VBG pH POC VBG pCO2 POC VBG pO2 VBG HCO3 VBG O2 Sat (Emilia) VBG Base Excess Sodium 136 Potassium 3.9 Chloride 101 Carbon Dioxide 29 Anion Gap 7 L BUN 16.2 Creatinine 0.8 Est GFR (CKD-EPI)AfAm 99.87 Est GFR (CKD-EPI)NonAf 86.17 Random Glucose 139 H Lactic Acid 1.5 Calcium 8.4 L Total Bilirubin 0.6 AST 15 ALT 8 L Alkaline Phosphatase 84 Creatine Kinase 78 Troponin I < 0.02 Total Protein 6.3 L Albumin 2.7 L Urine Color Yellow Urine Appearance Clear Urine pH 7.5 D Ur Specific [employer] 1.022 Urine Protein Negative Urine Glucose (UA) Negative Urine Ketones Negative Urine Blood Negative Urine Nitrite Negative Urine Bilirubin Negative Urine Urobilinogen 1.0 Ur Leukocyte Esterase Negative 07/11/19 17:10 RBC 4.14 MCV 92.7 MCHC 33.5 RDW 14.1 MPV 7.4 L D Neutrophils % 92.9 H D Lymphocytes % 3.6 L D Monocytes % 3.1 L Eosinophils % 0.0 D Basophils % 0.4 <Lindsay Quigley - Last Filed: 07/11/19 20:20> Medical Decision Making - Medical Decision Making 07/11/19 19:49 79 yo M with a hx of Parkinson's Disease, recurrent cellulitis, DM, CAD s/p CABG 2001 with NM in 2014 (on plavix) presents to the emergency department s/p falling. Initial vitals: Initial Vital Signs Temp Pulse Resp BP Pulse Ox 99.7 F H 85 20 134/61 97 07/11/19 16:16 07/11/19 16:16 07/11/19 16:16 07/11/19 16:16 07/11/19 16:16 Work up: patient presents s/p fall with neck pain and right shoulder and left hip pain. no FND, no visual disturbances. No antecedent symptoms prior to the fall. Patient states he has no chest pain or SOB. will obtain basic labs, troponin ( given cardiac hx and to rule out cardiogenic process) and CT head, cervical spine CT, CXR, right shoulder, and bilateral hip/pelvis. Laboratory Tests 07/11/19 07/11/19 07/11/19 17:10 17:10 18:50 WBC 19.7 H RBC 4.14 Hgb 12.8 Hct 38.4 MCV 92.7 MCH 31.0 MCHC 33.5 RDW 14.1 Plt Count 220 D MPV 7.4 L D Absolute Neuts (auto) 18.3 H Neutrophils % 92.9 H D Neutrophils % (Manual) 89.0 H Band Neutrophils % 3.0 Lymphocytes % 3.6 L D Lymphocytes % (Manual) 5.0 L D Monocytes % 3.1 L Monocytes % (Manual) 3 L Eosinophils % 0.0 D Basophils % 0.4 Nucleated RBC % 0 Platelet Estimate Adequate PT with INR INR VBG pH POC VBG pCO2 POC VBG pO2 VBG HCO3 VBG O2 Sat (Emilia) VBG Base Excess Sodium 136 Potassium 3.9 Chloride 101 Carbon Dioxide 29 Anion Gap 7 L BUN 16.2 Creatinine 0.8 Est GFR (CKD-EPI)AfAm 99.87 Est GFR (CKD-EPI)NonAf 86.17 Random Glucose 139 H Calcium 8.4 L Total Bilirubin 0.6 AST 15 ALT 8 L Alkaline Phosphatase 84 Creatine Kinase 78 Troponin I < 0.02 Total Protein 6.3 L Albumin 2.7 L Urine Color Yellow Urine Appearance Clear Urine pH 7.5 D Ur Specific [employer] 1.022 Urine Protein Negative Urine Glucose (UA) Negative Urine Ketones Negative Urine Blood Negative Urine Nitrite Negative Urine Bilirubin Negative Urine Urobilinogen 1.0 Ur Leukocyte Esterase Negative 07/11/19 07/11/19 19:20 19:20 WBC RBC Hgb Hct MCV MCH MCHC RDW Plt Count MPV Absolute Neuts (auto) Neutrophils % Neutrophils % (Manual) Band Neutrophils % Lymphocytes % Lymphocytes % (Manual) Monocytes % Monocytes % (Manual) Eosinophils % Basophils % Nucleated RBC % Platelet Estimate PT with INR 15.20 H INR 1.28 H VBG pH 7.47 H POC VBG pCO2 36.9 L POC VBG pO2 < 49 H VBG HCO3 26.5 VBG O2 Sat (Emilia) 80.8 H VBG Base Excess 3.5 H Sodium Potassium Chloride Carbon Dioxide Anion Gap BUN Creatinine Est GFR (CKD-EPI)AfAm Est GFR (CKD-EPI)NonAf Random Glucose Calcium Total Bilirubin AST ALT Alkaline Phosphatase Creatine Kinase Troponin I Total Protein Albumin Urine Color Urine Appearance Urine pH Ur Specific [employer] Urine Protein Urine Glucose (UA) Urine Ketones Urine Blood Urine Nitrite Urine Bilirubin Urine Urobilinogen Ur Leukocyte Esterase CT head negative for acute intracranial process. Patient's cervical spine was read to me as a critical finding. It was noted the patient had a RUL infiltrate possibly consistent with active TB vs aspiration PNA vs chronic PNA vs lung cancer. On reassessment of the patient, I obtained a rectal exam that showed 102.6 F. 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 Will place patient under TB precautions until TB tests back. Patient also has noted to have more erythema on his right leg than baseline. In addition, patient has smoking history (1 pack per year for at least 50 years with cessation 5 years ago). Patient denies previous testing for TB. Additional sepsis orders made. Chest CT with IV contrast pending Broadened original coverage of unasyn to include azithromycin and vancomycin. Will admit <Emery Morin - Last Filed: 07/11/19 19:49> - Medical Decision Making 07/11/19 20:20 JONG FROST No evidence of acute fracture or subluxation. Moderate degenerative disc disease and moderate degenerative joint disease at the uncovertebral joints and facets throughout the cervical spine. [id number] multilevel spinal canal narrowing. Moderate to severe multilevel neural foraminal narrowing. If clinically indicated follow-up outpatient MRI cervical spine may be needed. 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 If clinically indicated follow-up outpatient carotid artery arterial ultrasound may be needed. Moderate nonspecific right upper lobe lung consolidation may be due to pneumonia or aspiration pneumonia or chronic atypical pneumonia and active pulmonary tuberculosis or underlying malignancy cannot be excluded. If clinically indicated recommend correlation with PPD status, follow-up CT scan of the chest to evaluate the inferior aspect of the extent of the consolidation extending outside the field of view and follow-up outpatient CT chest following treatment for pneumonia to exclude an underlying malignant mass. Apical predominant centrilobular emphysema and COPD. Status post sternotomy and bypass on the pool hall inspector views. <Lindsay Quigley - Last Filed: 07/11/19 20:20> *DC/Admit/Observation/Transfer <Emery Morin - Last Filed: 07/11/19 19:49> <Lindsay Quigley - Last Filed: 07/11/19 20:20> Diagnosis at time of Disposition: Parkinsons disease, Right upper lobe pulmonary infiltrate Cellulitis Qualifiers: Site of cellulitis: extremity Site of cellulitis of extremity: lower extremity Laterality: right Qualified Code(s): L03.115 - Cellulitis of right lower limb
[2019-07-11 17:15] LABS: BASO % 0.4 % (0-2.0); HEMATOCRIT 38.4 % (35.4-49); HEMOGLOBIN 12.8 GM/dL (11.7-16.9); LYMPH % 3.6 % (8-40); MCHC 33.5 g/dl (32.0-35.9); MEAN CELL VOLUME 92.7 fl (80-96); MEAN PLT VOLUME 7.4 fl (7.5-11.1); MONO % 3.1 % (3.8-10.2); NEUT % 92.9 % (42.8-82.8); PLATELET COUNT 220 K/MM3 (134-434); RBC 4.14 M/mm3 (4.00-5.60); RDW 14.1 % (11.9-15.9); WHITE BLOOD COUNT 19.7 K/mm3 (4.0-10.0)
[2019-07-11 17:47] LABS: ALBUMIN 2.7 g/dl (3.4-5.0); ALK PHOS 84 U/L (45-117); ANION GAP 7 MMOL/L (8-16); BILIRUBIN,TOTAL 0.6 mg/dL (0.2-1); BLOOD UREA NITROGEN 16.2 mg/dL (7-18); CALCIUM 8.4 mg/dL (8.5-10.1); CHLORIDE 101 mmol/L (98-107); CO2 29 mmol/L (21-32); CREATININE 0.8 mg/dL (0.55-1.3); GLUCOSE,RANDOM 139 mg/dL (74-106); POTASSIUM 3.9 mmol/L (3.5-5.1); SGOT/AST 15 U/L (15-37); SGPT/ALT 8 U/L (13-61); SODIUM 136 mmol/L (136-145); TOT PROT 6.3 g/dl (6.4-8.2)
--- NOTE | 2019-07-11 18:02 | PDOC ---
Attending Attestation - Resident Resident Name: DorotheaEmery - ED Attending Attestation I have performed the following: I have examined & evaluated the patient, The case was reviewed & discussed with the resident, I agree w/resident's findings & plan, Exceptions are as noted - HPI HPI: 07/11/19 18:04 Mr. Liu is a 79 yo M h/o DM, HTN, HLD, Parkinson's, recurrent lower extremity cellulitis who presents to the ER accompanied by family secondary to a fall at home. Pt became unsteady on his feet, fell forward Pt states he lifted his arms to avoid hitting his head No LOC No vomiting No amnesia The family is concerned because he appears to be more somnolent than usual - Physicial Exam PE: 07/11/19 18:09 GENERAL: The patient is in no acute distress, pt is awake and answering all questions ENT: Dry mucous membranes. NECK: Normal range of motion, supple, no midline tenderness to palpation LUNGS: Breath sounds equal, clear to auscultation bilaterally. No wheezes, and no crackles. HEART:Regular rate and rhythm, normal S1 and S2 without murmur, rub or gallop. ABDOMEN: Soft, nontender, normoactive bowel sounds. EXTREMITIES: (+) lower extremity edema noted, RLE erythema, warmth, no lacerations NEUROLOGICAL: Cranial nerves II through XII grossly intact. Normal speech. No focal neurological deficits. SKIN: Warm, Dry, normal turgor, no rashes or lesions noted. 07/11/19 18:23 - Critical Care Time Total Critical Care Time: 35 Critical Care Statement: The care of this patient involved high complexity decision making to prevent further life threatening deterioration of the patient 's condition and/or to evaluate & treat vital organ system(s) failure or risk of failure. - Medical Decision Making 07/11/19 18:10 79 yo M presenting to the ER s/p fall PT did sustain head trauma DD: fall secondary to Parkinsons, ACS, mechanical fall, ?syncope Of note pt temp was noted to be 99.7 Pt feels warm on exam Rectal temp 102 Compression stockings removed Right leg appears erythematous Pt fell likely secondary to fever, weakness Will add Septic order set IVF Tylenol Vancomycin for cellulitis CT head CT cervical spine Would admit 07/11/19 18:49 Received call from imaging distribution field technician Comments: Farhat Carrasco MD wrote on Jul 11, 2019 at 06:41 PM: Referring Physician: DOROTHEA LIU No evidence of acute fracture or subluxation. Moderate degenerative disc disease and moderate degenerative joint disease at the uncovertebral joints and facets throughout the cervical spine. [id number] multilevel spinal canal narrowing. Moderate to severe multilevel neural foraminal narrowing. If clinically indicated follow-up outpatient MRI cervical spine may be needed. 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 If clinically indicated follow-up outpatient carotid artery arterial ultrasound may be needed. Moderate nonspecific right upper lobe lung consolidation may be due to pneumonia or aspiration pneumonia or chronic atypical pneumonia and active pulmonary tuberculosis or underlying malignancy cannot be excluded. If clinically indicated recommend correlation with PPD status, follow-up CT scan of the chest to evaluate the inferior aspect of the extent of the consolidation extending outside the field of view and follow-up outpatient CT chest following treatment for pneumonia to exclude an underlying malignant mass. Apical predominant centrilobular emphysema and COPD. Status post sternotomy and bypass on the glaze handler views. Will give Vanco, Zosyn, Azithromycin Will also isolate given location of this consolidation 07/11/19 19:18 Laboratory Tests 07/11/19 07/11/19 17:10 17:10 WBC 19.7 H Hgb 12.8 Hct 38.4 Plt Count 220 D BUN 16.2 Creatinine 0.8 Creatine Kinase 78 Troponin I < 0.02 07/11/19 19:20 EKG - Twelve-lead EKG was performed and reviewed by me. There is normal sinus rhythm with a normal rate. The axis is normal. The intervals are abnormal - pr: 216ms. There are no ST or T wave abnormalities. Impression: 1st degree AV block Clinical Impression: Fall from standing height, initial presentation Pneumonia, initial presentation Cellulitis, initial presentation
[2019-07-11] MEDS ORDERED: SODIUM CHLORIDE 2,722 ML IV ONE (18:21)
[2019-07-11] MEDS ORDERED: AMPICILLIN NA/SULBACTAM NA 3 GM in SODIUM CHLORIDE 100 ML IVPB ONE (18:28)
[2019-07-11] MEDS ORDERED: AZITHROMYCIN IVPB 500 MG in DEXTROSE 5%-WATER - 250 ML IVPB ONE (18:54)
[2019-07-11] MEDS ORDERED: VANCOMYCIN 1,000 MG in DEXTROSE 5%-WATER - 250 ML IVPB ONE (18:54)
[2019-07-11 19:02] LABS: PLATELET ESTIMATE ADEQUATE
[2019-07-11] MEDS ORDERED: AZITHROMYCIN IVPB 500 MG/250 ML BAG IVPB ONE (19:13)
[2019-07-11] MEDS ORDERED: VANCOMYCIN 1 GRAM (PRE-DOCKED) 1,000 MG/250 ML BAG IVPB ONE (19:14)
[2019-07-11 19:40] LABS: VENOUS PC02 36.9 mmHg (38-52); VENOUS PH 7.47 (7.31-7.41)
[2019-07-11 19:41] LABS: VENOUS PO2 < 49 mmHg (28-48)
[2019-07-11 19:44] LABS: PH,URINE 7.5 (5.0-8.0); URINE APPEARANCE CLEAR; URINE BILIRUBIN NEGATIVE (NEGATIVE); URINE COLOR YELLOW; URINE GLUCOSE (UA) NEGATIVE (NEGATIVE); URINE KETONE NEGATIVE (NEGATIVE); URINE LEUK ESTERASE NEGATIVE (NEGATIVE); URINE NITRITE NEGATIVE (NEGATIVE); URINE PROTEIN NEGATIVE (NEGATIVE)
--- NOTE | 2019-07-11 19:46 | PN ---
Teaching Attending Note Name of Resident: Sade Denise ATTENDING PHYSICIAN STATEMENT I saw and evaluated the patient. I reviewed the resident's note and discussed the case with the resident. I agree with the resident's findings and plan as documented. SUBJECTIVE: Patient is a 79 year old man with a PMH of Parkinson's Disease, Dementia, Recurrent lower extremity cellulitis, NIDDM, CAD, CABG in 2001 and [place] in 2015 ( on plavix) presents to the ER after a fall. Per the patient, he was on a stool device when his stopped holding it, causing the patient to fall into the tub. He denies hitting his head and presents with complaints of scrapes on his arms. The patient denies fevers, chills, SOB, chest pain, nausea, vomiting, dysuria, hematuria, diarrhea, hemtochezia. Has leg swelling that is stable and erythema on the right leg as well as neck pain after the fall. No LOC. The family is concerned because he appears to be more somnolent than usual. Has a 50 pack year smoking history - quit 5 years ago. 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 OBJECTIVE: Alert and not orthostatic Vital Signs Period Temp Pulse Resp BP Sys/Guerrier Pulse Ox Last 24 Hr 99.7 F 85 20 134/61 97-97 HEENT: No Jaundice, eye redness or discharge, PERRLA, EOMI. Normocephalic, atraumatic. External ears are normal and hearing is grossly intact. No nasal discharge. Neck: Supple, nontender. No palpable adenopathy or thyromegaly. No JVD Chest: Good effort. Clear to auscultation and percussion. Heart: Regular. No S3, rub or murmur Abdomen: Not distended, soft, nontender and no HSM. No rebound or guarding. Normal bowel sounds. Ext: Peripheral pulses intact. RLE erythema, warm and tender. Leg edema. Skin: Warm and dry. No petechiae, rash or ecchymosis. Neuro: Alert. Oriented to person and place. CN 2-12 grossly intact. Sensation grossly intact in all four extremities and DTR are symmetric. Psych: Appropriate mood and affect. Good insight. Current Medications Generic Name Dose Route Start Last Admin Trade Name Freq PRN Reason Stop Dose Admin Sodium Chloride 2,722 mls @ 1,361 mls/hr 07/11/19 18:21 Normal Saline - 30 ml/kg infuse over 2 hr (2722 ml) 07/11/19 20:20 IV ONCE ONE Azithromycin 500 mg/ Dextrose 250 mls @ 250 mls/hr 07/11/19 18:54 IVPB 07/11/19 19:53 ONCE ONE Vancomycin HCl 1,000 mg/ 250 mls @ 166.667 mls/hr 07/11/19 18:54 Dextrose IVPB 07/11/19 20:23 ONCE ONE Home Medications Medication Instructions Recorded Atorvastatin Ca [Lipitor] 80 mg PO HS 10/08/18 Carbidopa/Levodopa/Entacapone 1 each PO QID 10/08/18 [Carbidopa-Levodopa 200 mg-Enta] Carvedilol [Coreg -] 6.25 mg PO BID 10/08/18 Furosemide 40 mg PO DAILY 10/08/18 Gabapentin 600 mg PO BID 10/08/18 Selegiline 5 mg PO BID 10/08/18 Amox-Tr/K Cl [Augmentin 500-125mg 1 tab PO BID@0800,1730 #10 tablet 11/05/18 Tablet -] Clopidogrel Bisulfate [Clopidogrel] 75 mg PO DAILY 07/11/19 Abnormal Lab Results 07/11/19 07/11/19 07/11/19 17:10 17:10 19:20 WBC 19.7 H MPV 7.4 L D Absolute Neuts (auto) 18.3 H Neutrophils % 92.9 H D Neutrophils % (Manual) 89.0 H Lymphocytes % 3.6 L D Lymphocytes % (Manual) 5.0 L D Monocytes % 3.1 L Monocytes % (Manual) 3 L VBG pH 7.47 H POC VBG pCO2 36.9 L POC VBG pO2 < 49 H VBG O2 Sat (Emilia) 80.8 H VBG Base Excess 3.5 H Anion Gap 7 L Random Glucose 139 H Calcium 8.4 L ALT 8 L Total Protein 6.3 L Albumin 2.7 L ASSESSMENT AND PLAN: 1. Fall/Sepsis due to pneumonia/RLE cellulitis - Unclear if his fall was a syncopal episode. 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 Will consult neurology - is brain MRI indicated. Refer to outpatient dentist. Consult PT and medical social consultant. Get ECHO and carotid doppler. Implement fall precautions. C-spine CT showed RUL infiltrate, but no fracture. Will treat with IV Azithromycin and Unasyn and IV NS. Consult ID and Pulmonary. Left hip and shoulder xray as well as EKG pending. Will continue comprehensive care of all his comorbid conditions. 2. Hypoalbuminemia - Possibly due to combined effects of malnutrition and inflammation associated with comorbid chronic conditions. Will ensure adequate dietary protein intake and also consult csw. 3. DM For now, we will hold the home diabetes drugs and implement sliding scale insulin regimen. Provide comprehensive diabetes care with patient teaching and counseling about the importance of adherence to prescribed diabetes regimen, euglycemia, eye care and foot care. 4. DVT prophylaxis - Lovenox 40 mg SQ q 24 hours. 5. Advance directives - Full code
[2019-07-11 19:48] LABS: INR 1.28 (0.83-1.09); PROTHROMBIN TIME (PATIENT) 15.2 SEC (9.7-13.0)
[2019-07-11] MEDS ORDERED: SODIUM CHLORIDE 1,000 ML IV SCH (23:00)
--- NOTE | 2019-07-11 23:09 | HP ---
CHIEF COMPLAINT: Fall PCP: Melissa HISTORY OF PRESENT ILLNESS: 79 y/o M with PMHx of CAD (s/p CABG with subsequent [place] and Stenting), NIDDM, HTN , Parkinson's disease, multiple previous epsiodes of Cellulitis presents after a Fall. Patient was accompanied by his Daughter Maria R who aided in providing HPI. Patient was in his usual state of health however occasionally mentioned episodes of fatigue and chills. His PCP started him on Mirtazapine, but patient stopped after 2 days as he felt lethargic and somnolent. Patient lives at home with his ; They have a DIRECTOR OF MEDICAL EDUCATION for about 6 hours a day, and has worsening dementia and patient has a mild dementia. Maria R called her parents home around 1400, and her mother was panicking prompting Maria R to tee to her parents home where she found her father laying in the Tub with his legs hanging over the edge. She then pushed his life-alert necklace and patient was brought to the ED. Maria R mentions > 5 falls in the past 6 months. Patient denies any LOC or hitting his head. He additionally denies any preceding blurry vision, SOB, Chest pain, or dizziness. Denies any recent medication changes or travel. No associated fevers, chills, nausea, vomtiing, diarrhea, constipation. 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 Residence: With , RANDI x 6 hours weekly Ambulation: Walker Family History: Allergies No Known Allergies Allergy (Verified 10/30/18 13:09) HOME MEDICATIONS: Home Medications Medication Instructions Recorded Atorvastatin Ca [Lipitor] 80 mg PO HS 10/08/18 Carbidopa/Levodopa/Entacapone 1 each PO QID 10/08/18 [Carbidopa-Levodopa 200 mg-Enta] Carvedilol [Coreg -] 6.25 mg PO BID 10/08/18 Furosemide 40 mg PO DAILY 10/08/18 Gabapentin 600 mg PO BID 10/08/18 Selegiline 5 mg PO BID 10/08/18 Amox-Tr/K Cl [Augmentin 500-125mg 1 tab PO BID@0800,1730 #10 tablet 11/05/18 Tablet -] Clopidogrel Bisulfate [Clopidogrel] 75 mg PO DAILY 07/11/19 REVIEW OF SYSTEMS As per HPI PHYSICAL EXAMINATION Vital Signs - 24 hr 07/11/19 07/11/19 07/11/19 16:16 17:14 21:00 Temperature 99.7 F H 98.9 F Pulse Rate 85 Pulse Rate [ Left] Respiratory 20 17 Rate Blood Pressure 134/61 Blood Pressure 127/64 [Right Arm] O2 Sat by Pulse 97 97 96 Oximetry (%) 07/11/19 21:44 Temperature Pulse Rate Pulse Rate [ 91 H Left] Respiratory 17 Rate Blood Pressure Blood Pressure 125/59 L [Right Arm] O2 Sat by Pulse 95 Oximetry (%) GENERAL: A&Ox2 HEAD: NCAT EYES: PERRL, EOMI ENT: Moist mucous membranes. NECK: Supple, Normal ROM, No JVD, No midline spinal tenderness to palpation. LUNGS: Diminished breath sounds at the bases. No wheezes, no crackles. HEART: Regular rate and rhythm, normal S1 and S2 without murmur ABDOMEN: Soft, nontender, not distended, + bowel sounds, no guarding, no rebound MUSCULOSKELETAL: No CVA tenderness. EXTREMITIES: 1+ pitting edema. NEUROLOGICAL: Cranial nerves II-XII intact. SKIN: Warm, dry. Circumfrential Cellulitis over the RLE with uncircumscribed erythematous warm rash without weeping or drainage Laboratory Last Values WBC 19.7 K/mm3 (4.0-10.0) H 07/11/19 17:10 RBC 4.14 M/mm3 (4.00-5.60) 07/11/19 17:10 Hgb 12.8 GM/dL (11.7-16.9) 07/11/19 17:10 Hct 38.4 % (35.4-49) 07/11/19 17:10 MCV 92.7 fl (80-96) 07/11/19 17:10 MCH 31.0 pg (25.7-33.7) 07/11/19 17:10 MCHC 33.5 g/dl (32.0-35.9) 07/11/19 17:10 RDW 14.1 % (11.9-15.9) 07/11/19 17:10 Plt Count 220 K/MM3 (134-434) D 07/11/19 17:10 MPV 7.4 fl (7.5-11.1) L D 07/11/19 17:10 Absolute Neuts (auto) 18.3 K/mm3 (1.5-8.0) H 07/11/19 17:10 Neutrophils % 92.9 % (42.8-82.8) H D 07/11/19 17:10 Neutrophils % (Manual) 89.0 % (42.8-82.8) H 07/11/19 17:10 Band Neutrophils % 3.0 % 07/11/19 17:10 Lymphocytes % 3.6 % (8-40) L D 07/11/19 17:10 Lymphocytes % (Manual) 5.0 % (8-40) L D 07/11/19 17:10 Monocytes % 3.1 % (3.8-10.2) L 07/11/19 17:10 Monocytes % (Manual) 3 % (3.8-10.2) L 07/11/19 17:10 Eosinophils % 0.0 % (0-4.5) D 07/11/19 17:10 Basophils % 0.4 % (0-2.0) 07/11/19 17:10 Nucleated RBC % 0 % (0-0) 07/11/19 17:10 Platelet Estimate Adequate 07/11/19 17:10 PT with INR 15.20 SEC (9.7-13.0) H 07/11/19 19:20 INR 1.28 (0.83-1.09) H 07/11/19 19:20 PTT (Actin FS) 38.8 SECONDS (25.2-36.5) H 07/11/19 19:20 VBG pH 7.47 (7.31-7.41) H 07/11/19 19:20 POC VBG pCO2 36.9 mmHg (38-52) L 07/11/19 19:20 POC VBG pO2 < 49 mmHg (28-48) H 07/11/19 19:20 VBG HCO3 26.5 mmol/L (23-29) 07/11/19 19:20 VBG O2 Sat (Emilia) 80.8 % (70-80) H 07/11/19 19:20 VBG Base Excess 3.5 meq/l (-2-2) H 07/11/19 19:20 Sodium 136 mmol/L (136-145) 07/11/19 17:10 Potassium 3.9 mmol/L (3.5-5.1) 07/11/19 17:10 Chloride 101 mmol/L (98-107) 07/11/19 17:10 Carbon Dioxide 29 mmol/L (21-32) 07/11/19 17:10 Anion Gap 7 MMOL/L (8-16) L 07/11/19 17:10 BUN 16.2 mg/dL (7-18) 07/11/19 17:10 Creatinine 0.8 mg/dL (0.55-1.3) 07/11/19 17:10 Est GFR (CKD-EPI)AfAm 99.87 07/11/19 17:10 Est GFR (CKD-EPI)NonAf 86.17 07/11/19 17:10 POC Glucometer 145 UNITS (80-120) 07/12/19 00:10 Random Glucose 139 mg/dL (74-106) H 07/11/19 17:10 Lactic Acid 1.5 mmol/L (0.4-2.0) 07/11/19 17:00 Calcium 8.4 mg/dL (8.5-10.1) L 07/11/19 17:10 Total Bilirubin 0.6 mg/dL (0.2-1) 07/11/19 17:10 AST 15 U/L (15-37) 07/11/19 17:10 ALT 8 U/L (13-61) L 07/11/19 17:10 Alkaline Phosphatase 84 U/L (45-117) 07/11/19 17:10 Creatine Kinase 78 U/L (26-308) 07/11/19 17:10 Troponin I < 0.02 ng/ml (0.00-0.05) 07/11/19 17:10 Total Protein 6.3 g/dl (6.4-8.2) L 07/11/19 17:10 Albumin 2.7 g/dl (3.4-5.0) L 07/11/19 17:10 Urine Color Yellow 07/11/19 18:50 Urine Appearance Clear 07/11/19 18:50 Urine pH 7.5 (5.0-8.0) D 07/11/19 18:50 Ur Specific [place] 1.022 (1.010-1.035) 07/11/19 18:50 Urine Protein Negative (NEGATIVE) 07/11/19 18:50 Urine Glucose (UA) Negative (NEGATIVE) 07/11/19 18:50 Urine Ketones Negative (NEGATIVE) 07/11/19 18:50 Urine Blood Negative (NEGATIVE) 07/11/19 18:50 Urine Nitrite Negative (NEGATIVE) 07/11/19 18:50 Urine Bilirubin Negative (NEGATIVE) 07/11/19 18:50 Urine Urobilinogen 1.0 mg/dL (0.2-1.0) 07/11/19 18:50 Ur Leukocyte Esterase Negative (NEGATIVE) 07/11/19 18:50 Active Medications Acetaminophen (Tylenol -) 650 mg PO Q6H PRN PRN Reason: PAIN OR FEVER Last Admin: 07/12/19 01:22 Dose: 650 mg Aspirin (Asa -) 81 mg PO DAILY [facility] Carvedilol (Coreg -) 6.25 mg PO BID [facility] Clopidogrel Bisulfate (Plavix -) 75 mg PO DAILY [facility] Enoxaparin Sodium (Lovenox -) 40 mg SQ DAILY [facility] Gabapentin (Neurontin -) 600 mg PO BID [facility] Ampicillin Sodium/Sulbactam (Sodium 3 gm/ Sodium Chloride) 100 mls @ 200 mls/ hr IVPB Q8H-IV GLO Last Admin: 07/12/19 01:22 Dose: Not Given Azithromycin 500 mg/ Dextrose 250 mls @ 250 mls/hr IVPB DAILY [facility] Sodium Chloride (Normal Saline -) 1,000 mls @ 75 mls/hr IV ASDIR [facility] Last Admin: 07/12/19 01:20 Dose: 75 mls/hr Insulin Aspart (Novolog Vial Sliding Scale -) 1 vial SQ ACHS [facility]; Protocol Non-Formulary Medication (Carbidopa/Levodopa/Entacapone [Carbidopa-Levodopa 200 Mg-Enta]) 1 each PO QID [facility] Selegiline HCl (Selegiline Hcl) 5 mg PO BID@0700,1100 [facility] ASSESSMENT/PLAN: 79 y/o M with PMHx of CAD (s/p CABG with subsequent [place] and Stenting), NIDDM, HTN , Parkinson's disease, multiple previous epsiodes of Cellulitis presents after a Fall. #Sepsis -Tachycardia + Leukocytosis likely due to RUL PNA VS RLE Cellulitis -Prelim Chest CTA found RUL Consolidation -Continue IV Azithromycin 500mg Daily, IV Ampicillin/Sulbactam 3gm Q8H -IV Hydration -Acetaminophen for fever/pain -Follow culture results and final imaging reports #Fall -Unclear mechanism, but must consider syncope vs mechanical in etiology -Head CT Negative for fx or hemorrhage on prelim report -Further Shoulder and Hip Imaging pending -Check ECHO, Carotid duplex -Physical therapy -reforestation worker to assist with possible placement and DIRECTOR OF MEDICAL EDUCATION/VNS -Fall precautions -Hold Home dose diuresis #CAD -Continue home dose ASA, Clopidogrel, Statin #NIDDM -ISS BGMs ACHS #HTN, Controlled -Continue home dose Carvedilol #Parkinson's dementia -Continue home dose Carbidopa/Levodopa/Entacapone, Selegiline #FEN -NS @ 75 -Replete Lytes PRN -Cholesterol/Fat controlled diet #PPx -DVT: Lovenox Dispo: Admit to Tele; Can transfer to med-surg if syncope work up completed and negative Visit type - Emergency Visit Emergency Visit: Yes ED Registration Date: 07/11/19 Care time: The patient presented to the Emergency Department on the above date and was hospitalized for further evaluation of their emergent condition. - New Patient This patient is new to me today: Yes Date on this admission: 07/12/19 - Critical Care Critical Care patient: No ATTENDING PHYSICIAN STATEMENT I saw and evaluated the patient. I reviewed the resident's note and discussed the case with the resident. I agree with the resident's findings and plan as documented. SUBJECTIVE: OBJECTIVE: ASSESSMENT AND PLAN:
[2019-07-12] MEDS: ACETAMINOPHEN 325 MG TABLET (FP) PO PRN ×2 (01:22→23:08)
[2019-07-12] MEDS: AMPICILLIN NA/SULBACTAM NA 3 GM in SODIUM CHLORIDE 100 ML IVPB SCH ×3 (01:22→18:16)
[2019-07-12] MEDS: INSULIN SLIDING SCALE (NOVOLOG) 1 VIAL SQ SCH ×4 (06:12→23:06)
[2019-07-12 06:58] LABS: BASO % 0.7 % (0-2.0); HEMATOCRIT 37.9 % (35.4-49); HEMOGLOBIN 12.8 GM/dL (11.7-16.9); LYMPH % 10.7 % (8-40); MCH 31.7 pg (25.7-33.7); MCHC 33.8 g/dl (32.0-35.9); MEAN CELL VOLUME 93.8 fl (80-96); MEAN PLT VOLUME 8.1 fl (7.5-11.1); MONO % 3.8 % (3.8-10.2); NEUT % 84.8 % (42.8-82.8); PLATELET COUNT 182 K/MM3 (134-434); RBC 4.05 M/mm3 (4.00-5.60); RDW 13.7 % (11.9-15.9); WHITE BLOOD COUNT 11.6 K/mm3 (4.0-10.0)
[2019-07-12] MEDS ORDERED: SELEGILINE 5 MG PO SCH (07:00)
[2019-07-12 07:30] LABS: ALBUMIN 2.4 g/dl (3.4-5.0); BILIRUBIN,TOTAL 0.6 mg/dL (0.2-1); BLOOD UREA NITROGEN 14.9 mg/dL (7-18); CALCIUM 8.4 mg/dL (8.5-10.1); CREATININE 0.8 mg/dL (0.55-1.3); MAGNESIUM 2.3 mg/dL (1.8-2.4); PHOSPHOROUS 2.4 mg/dL (2.5-4.9); POTASSIUM 3.8 mmol/L (3.5-5.1); TOT PROT 5.9 g/dl (6.4-8.2)
[2019-07-12] MEDS ORDERED: POTASSIUM PHOSPHATE 15 MM in SODIUM CHLORIDE 250 ML IVPB ONE (09:15)
[2019-07-12] MEDS ORDERED: CEFTRIAXONE 1 GM in DEXTROSE 5%-WATER - 50 ML IVPB SCH (10:00)
[2019-07-12] MEDS ORDERED: PATIENT'S OWN MEDICATION (NON-FORMULARY) (Gabapentin [Gabapentin] 600 MG) PO SCH (10:00)
[2019-07-12] MEDS ORDERED: PT OWN MED DRAWER 7, Y5N ONE ×4 (10:10→17:57)
[2019-07-12] MEDS: SELEGILINE HCL 5 MG CAPSULE PO SCH ×2 (10:13→10:18)
[2019-07-12] MEDS: GABAPENTIN 300 MG CAPSULE (FP) PO SCH ×2 (10:16→23:05)
[2019-07-12] MEDS: CARVEDILOL 6.25 MG TABLET (FP) PO SCH ×2 (10:16→23:06)
[2019-07-12] MEDS: ENOXAPARIN NA (PORCINE) 40 MG/0.4 ML DISP.SYRIN SQ SCH (10:17)
[2019-07-12] MEDS: AZITHROMYCIN IVPB 500 MG/250 ML BAG IVPB SCH (10:17)
[2019-07-12] MEDS: ASPIRIN 81 MG CHEWABLE TABLETS PO SCH (10:17)
[2019-07-12] MEDS: CLOPIDOGREL BISULFATE 75 MG TABLET (FP) PO SCH (10:23)
--- NOTE | 2019-07-12 17:00 | EKG ---
Test Reason : Blood Pressure : / mmHG Vent. Rate : 090 BPM Atrial Rate : 090 BPM P-R Int : 216 ms QRS Dur : 090 ms QT Int : 358 ms P-R-T Axes : 074 036 065 degrees QTc Int : 437 ms SINUS RHYTHM WITH 1ST DEGREE A-V BLOCK WITH PREMATURE SUPRAVENTRICULAR COMPLEXES INFERIOR INFARCT ABNORMAL ECG Confirmed by MD PAU, LORENE ([id number]) on 07/12/2019 5:00:08 PM Referred By: Confirmed By:LORENE MAI MD
--- NOTE | 2019-07-12 17:04 | PN ---
Progress Note (short form) - Note Progress Note: SUBJECTIVE: Dyspnea improved. Complains of RLE pain/tenderness. No fever/ chills. Cough+. No hemoptysis. OBJECTIVE: Tmax 100, Hemodynamically stable. Last Vital Signs Temp Pulse Resp BP Pulse Ox 98.0 F 62 20 90/42 L 98 07/12/19 14:31 07/12/19 14:31 07/12/19 14:31 07/12/19 14:31 07/12/19 09:00 HEENT - Atraumatic, Normocephalic Heart - S1, S2, RRR Lungs - clear to auscultation Abdomen - Soft, non-tender. Bowel Sounds normal. Extremities - RLE erythema/tenderness/warmth/edema+ Neuro - Moving all 4 extremities. Laboratory Results - last 24 hr 07/11/19 07/11/19 07/11/19 17:00 17:10 17:10 WBC 19.7 H RBC 4.14 Hgb 12.8 Hct 38.4 MCV 92.7 MCH 31.0 MCHC 33.5 RDW 14.1 Plt Count 220 D MPV 7.4 L D Absolute Neuts (auto) 18.3 H Neutrophils % 92.9 H D Neutrophils % (Manual) 89.0 H Band Neutrophils % 3.0 Lymphocytes % 3.6 L D Lymphocytes % (Manual) 5.0 L D Monocytes % 3.1 L Monocytes % (Manual) 3 L Eosinophils % 0.0 D Basophils % 0.4 Nucleated RBC % 0 Platelet Estimate Adequate PT with INR INR PTT (Actin FS) VBG pH POC VBG pCO2 POC VBG pO2 VBG HCO3 VBG O2 Sat (Emilia) VBG Base Excess Sodium 136 Potassium 3.9 Chloride 101 Carbon Dioxide 29 Anion Gap 7 L BUN 16.2 Creatinine 0.8 Est GFR (CKD-EPI)AfAm 99.87 Est GFR (CKD-EPI)NonAf 86.17 POC Glucometer Random Glucose 139 H Lactic Acid 1.5 Calcium 8.4 L Phosphorus Magnesium Total Bilirubin 0.6 AST 15 ALT 8 L Alkaline Phosphatase 84 Creatine Kinase 78 Troponin I < 0.02 Total Protein 6.3 L Albumin 2.7 L Urine Color Urine Appearance Urine pH Ur Specific [place] Urine Protein Urine Glucose (UA) Urine Ketones Urine Blood Urine Nitrite Urine Bilirubin Urine Urobilinogen Ur Leukocyte Esterase 07/11/19 07/11/19 07/11/19 18:50 19:20 19:20 WBC RBC Hgb Hct MCV MCH MCHC RDW Plt Count MPV Absolute Neuts (auto) Neutrophils % Neutrophils % (Manual) Band Neutrophils % Lymphocytes % Lymphocytes % (Manual) Monocytes % Monocytes % (Manual) Eosinophils % Basophils % Nucleated RBC % Platelet Estimate PT with INR 15.20 H INR 1.28 H PTT (Actin FS) 38.8 H VBG pH POC VBG pCO2 POC VBG pO2 VBG HCO3 VBG O2 Sat (Emilia) VBG Base Excess Sodium Potassium Chloride Carbon Dioxide Anion Gap BUN Creatinine Est GFR (CKD-EPI)AfAm Est GFR (CKD-EPI)NonAf POC Glucometer Random Glucose Lactic Acid Calcium Phosphorus Magnesium Total Bilirubin AST ALT Alkaline Phosphatase Creatine Kinase Troponin I Total Protein Albumin Urine Color Yellow Urine Appearance Clear Urine pH 7.5 D Ur Specific [place] 1.022 Urine Protein Negative Urine Glucose (UA) Negative Urine Ketones Negative Urine Blood Negative Urine Nitrite Negative Urine Bilirubin Negative Urine Urobilinogen 1.0 Ur Leukocyte Esterase Negative 07/11/19 07/12/19 07/12/19 19:20 00:10 06:09 WBC RBC Hgb Hct MCV MCH MCHC RDW Plt Count MPV Absolute Neuts (auto) Neutrophils % Neutrophils % (Manual) Band Neutrophils % Lymphocytes % Lymphocytes % (Manual) Monocytes % Monocytes % (Manual) Eosinophils % Basophils % Nucleated RBC % Platelet Estimate PT with INR INR PTT (Actin FS) VBG pH 7.47 H POC VBG pCO2 36.9 L POC VBG pO2 < 49 H VBG HCO3 26.5 VBG O2 Sat (Emilia) 80.8 H VBG Base Excess 3.5 H Sodium Potassium Chloride Carbon Dioxide Anion Gap BUN Creatinine Est GFR (CKD-EPI)AfAm Est GFR (CKD-EPI)NonAf POC Glucometer 145 96 Random Glucose Lactic Acid Calcium Phosphorus Magnesium Total Bilirubin AST ALT Alkaline Phosphatase Creatine Kinase Troponin I Total Protein Albumin Urine Color Urine Appearance Urine pH Ur Specific [place] Urine Protein Urine Glucose (UA) Urine Ketones Urine Blood Urine Nitrite Urine Bilirubin Urine Urobilinogen Ur Leukocyte Esterase 07/12/19 07/12/19 07/12/19 06:10 06:10 11:57 WBC 11.6 H RBC 4.05 Hgb 12.8 Hct 37.9 MCV 93.8 MCH 31.7 MCHC 33.8 RDW 13.7 Plt Count 182 MPV 8.1 Absolute Neuts (auto) 9.9 H Neutrophils % 84.8 H Neutrophils % (Manual) Band Neutrophils % Lymphocytes % 10.7 D Lymphocytes % (Manual) Monocytes % 3.8 Monocytes % (Manual) Eosinophils % 0.0 Basophils % 0.7 Nucleated RBC % 0 Platelet Estimate PT with INR INR PTT (Actin FS) VBG pH POC VBG pCO2 POC VBG pO2 VBG HCO3 VBG O2 Sat (Emilia) VBG Base Excess Sodium 138 Potassium 3.8 Chloride 103 Carbon Dioxide 28 Anion Gap 7 L BUN 14.9 Creatinine 0.8 Est GFR (CKD-EPI)AfAm 99.87 Est GFR (CKD-EPI)NonAf 86.17 POC Glucometer 255 Random Glucose 103 Lactic Acid Calcium 8.4 L Phosphorus 2.4 L Magnesium 2.3 Total Bilirubin 0.6 AST 13 L ALT 9 L Alkaline Phosphatase 75 Creatine Kinase Troponin I Total Protein 5.9 L Albumin 2.4 L Urine Color Urine Appearance Urine pH Ur Specific [place] Urine Protein Urine Glucose (UA) Urine Ketones Urine Blood Urine Nitrite Urine Bilirubin Urine Urobilinogen Ur Leukocyte Esterase Current Medications Generic Name Dose Route Start Last Admin Trade Name Freq PRN Reason Stop Dose Admin Acetaminophen 650 mg 07/11/19 23:07 07/12/19 01:22 Tylenol - PO 650 mg Q6H PRN Administration PAIN OR FEVER Aspirin 81 mg 07/12/19 10:00 07/12/19 10:17 Asa - PO 81 mg DAILY GLO Administration Carvedilol 6.25 mg 07/12/19 10:00 07/12/19 10:16 Coreg - PO 6.25 mg BID GLO Administration Clopidogrel Bisulfate 75 mg 07/12/19 10:00 07/12/19 10:23 Plavix - PO 75 mg DAILY GLO Administration Enoxaparin Sodium 40 mg 07/12/19 10:00 07/12/19 10:17 Lovenox - SQ 40 mg DAILY GLO Administration Gabapentin 600 mg 07/12/19 10:00 07/12/19 10:16 Neurontin - PO 600 mg BID GLO Administration Ampicillin Sodium/Sulbactam 100 mls @ 200 mls/hr 07/12/19 02:00 07/12/19 11: 59 Sodium 3 gm/ Sodium Chloride IVPB 200 mls/hr Q8H-IV GLO Administration Azithromycin 500 mg in 250 mls @ 250 mls/hr 07/12/19 10:00 07/12/19 10:17 Zithromax 500mg Ivpb (Pre-Docked) IVPB 250 mls/hr DAILY GLO Administration Sodium Chloride 1,000 mls @ 75 mls/hr 07/11/19 23:00 07/12/19 01:20 Normal Saline - IV 75 mls/hr ASDIR GLO Administration Insulin Aspart 1 vial 07/12/19 07:00 07/12/19 11:59 Novolog Vial Sliding Scale - SQ 6 unit ACHS GLO Administration Protocol Non-Formulary Medication 1 each 07/12/19 10:00 Carbidopa/Levodopa/Entacapone [Carbidopa-Levodopa 200 Mg-Enta] PO QID GLO Selegiline HCl 5 mg 07/12/19 07:00 07/12/19 10:18 Selegiline Hcl PO 5 mg BID@0700,1100 GLO Administration Home Medications Medication Instructions Recorded Carbidopa/Levodopa/Entacapone 1 each PO QID 10/08/18 [Carbidopa-Levodopa 200 mg-Enta] Carvedilol [Coreg -] 6.25 mg PO BID 10/08/18 Furosemide [Lasix] 40 mg PO DAILY #0 10/08/18 Gabapentin 600 mg PO BID 10/08/18 Clopidogrel Bisulfate [Clopidogrel] 75 mg PO DAILY 07/11/19 Aspirin [ASA -] 81 mg PO DAILY 07/12/19 Selegiline HCl 5 mg PO ASDIR 07/12/19 ASSESSMENT/PLAN 79 year old male with history of CAD s/p CABG s/p ND s/p PCI/Stent, DM 2, HTN, Parkinson's disease, presents s/p fall in bathtub without HI/LOC, found to have RLE Cellulitis and Pneumonia. No preceding lightheadedness/CP/palpitations. 1. Sepsis secondary to RUL Pneumonia and RLE Cellulitis Continue Unasyn/Azithromycin, gentle IV hydration Concern for TB based on RUL CT findings - awaiting official report. Isolation, AFB x 3 samples. Sputum cx pending. 2. RLE Cellulitis Tmax 100, Hemodynamically Stable. Continue Unasyn Will monitor. 3. Fall, etiology unclear. No clear evidence of syncope CT Head - neg for acute intracranial infarct or hemorrhage. Awaiting official report. CT C Spine - awaiting official read. Carotid Duplex pending. Echo pending. PT eval. 4. CAD s/p CABG s/p PCI/Stent - continue Aspirin/Clopidogrel, BB, Statin 5. DM 2 - Maintain on Novolog sliding scale. Does not appear to be on a diabetic home regimen, will clarify. 6. HTN - continue Coreg. 7. Parkinson's Disease - continue Carbidopa/Levodopa/Entacapone, Selegiline. PT eval. 8. Chronic Venous Stasis - normally on Lasix at home, currently held in favor of gentle hydration. DVT Px - Lovenox SQ. Visit type - Emergency Visit Emergency Visit: Yes ED Registration Date: 07/11/19 Care time: The patient presented to the Emergency Department on the above date and was hospitalized for further evaluation of their emergent condition. - New Patient This patient is new to me today: Yes Date on this admission: 07/12/19 - Critical Care Critical Care patient: No - Discharge Referral Referred to [facility] Med [facility] No
[2019-07-12] MEDS ORDERED: SODIUM CHLORIDE 250 ML IV STA ×2 (17:12→18:30)
[2019-07-12] MEDS ORDERED: SODIUM CHLORIDE 1,000 ML IV SCH (18:32)
[2019-07-13] MEDS ORDERED: SODIUM CHLORIDE 250 ML IV STA (01:43)
[2019-07-13] MEDS: AMPICILLIN NA/SULBACTAM NA 3 GM in SODIUM CHLORIDE 100 ML IVPB SCH ×3 (01:54→18:15)
[2019-07-13] MEDS: SELEGILINE HCL 5 MG CAPSULE PO SCH ×2 (06:15→12:20)
[2019-07-13] MEDS: INSULIN SLIDING SCALE (NOVOLOG) 1 VIAL SQ SCH ×4 (06:15→22:01)
[2019-07-13] MEDS ORDERED: PT OWN MED DRAWER 7, Y5N ONE ×3 (06:53→18:04)
[2019-07-13] MEDS: AZITHROMYCIN IVPB 500 MG/250 ML BAG IVPB SCH (10:32)
[2019-07-13] MEDS: GABAPENTIN 300 MG CAPSULE (FP) PO SCH ×2 (10:34→22:01)
[2019-07-13] MEDS: ASPIRIN 81 MG CHEWABLE TABLETS PO SCH (10:34)
[2019-07-13] MEDS: CLOPIDOGREL BISULFATE 75 MG TABLET (FP) PO SCH (10:34)
[2019-07-13] MEDS: ENOXAPARIN NA (PORCINE) 40 MG/0.4 ML DISP.SYRIN SQ SCH (10:34)
[2019-07-13] MEDS: CARVEDILOL 6.25 MG TABLET (FP) PO SCH ×2 (10:34→22:01)
[2019-07-13 10:48] LABS: BASO % 0.4 % (0-2.0); EOS % 1.8 % (0-4.5); HEMATOCRIT 35.6 % (35.4-49); HEMOGLOBIN 11.9 GM/dL (11.7-16.9); MCH 31.3 pg (25.7-33.7); MCHC 33.4 g/dl (32.0-35.9); MEAN CELL VOLUME 93.6 fl (80-96); MEAN PLT VOLUME 7.7 fl (7.5-11.1); MONO % 5.9 % (3.8-10.2); NEUT % 78.9 % (42.8-82.8); PLATELET COUNT 174 K/MM3 (134-434); RDW 14.3 % (11.9-15.9); WHITE BLOOD COUNT 6.5 K/mm3 (4.0-10.0)
--- NOTE | 2019-07-13 11:10 | ECHO ---
Name: JONG FROST Exam:Adult Echocardiogram Study Date: 07/13/2019 08:48 AM Age: 79 yrs Reason For Study: Tachycardia Height: 76 in Weight: 200 lb BSA: 2.2 m2 MMode/2D Measurements & Calculations IVSd: 1.0 cm Ao root diam: 3.6 cm LVIDd: 4.8 cm LA dimension: 2.6 cm LVIDs: 3.0 cm LVPWd: 0.94 cm EDV(Teich): 105.1 ml LVOT diam: 2.0 cm ESV(Teich): 35.2 ml LAV (MOD-bp): 76.0 ml Doppler Measurements & Calculations MV E max andriy: 82.0 cm/sec Ao V2 max: 171.0 cm/sec MV A max andriy: 61.1 cm/sec Ao max P.7 mmHg MV E/A: 1.3 MV dec time: 0.25 sec KAIT(V,D): 2.0 cm2 LV V1 max P.6 mmHg Med Peak E' Andriy: 9.1 cm/sec LV V1 max: 106.7 cm/sec Med E/e': 9.0 Lat Peak E' Andriy: 12.5 cm/sec Lat E/e': 6.6 Procedure A complete two-dimensional transthoracic echocardiogram was performed (2D, M-mode, Doppler and color flow Doppler). Technically limited study. Left Ventricle The left ventricle is normal in size. Left ventricular systolic function is normal. Ejection Fraction = 65- 70%. No regional wall motion abnormalities noted. Right Ventricle The right ventricle is not well visualized. Atria The left atrial size is normal. Right atrial size is normal. Mitral Valve The mitral valve is normal in structure and function. There is no mitral regurgitation noted. Tricuspid Valve The tricuspid valve is normal in structure and function. No tricuspid regurgitation. Aortic Valve The aortic valve is normal in structure and function. No aortic regurgitation is present. Pulmonic Valve The pulmonic valve is not well visualized. Great Vessels The aortic root is normal size. Pericardium/Pleura There is no pericardial effusion. Interpretation Summary Technically limited study The left ventricle is normal in size. Left ventricular systolic function is normal. No regional wall motion abnormalities noted. Ejection Fraction = 65-70%. The right ventricle is not well visualized. The left atrial size is normal. Right atrial size is normal. No significant valvular regurgitations There is no pericardial effusion. Yves Snell MD 07/13/2019 11:10 AM
[2019-07-13 11:18] LABS: BLOOD UREA NITROGEN 14.7 mg/dL (7-18); CREATININE 0.7 mg/dL (0.55-1.3); PHOSPHOROUS 1.9 mg/dL (2.5-4.9); POTASSIUM 3.9 mmol/L (3.5-5.1)
--- NOTE | 2019-07-13 13:39 | PN ---
Physical Exam: SUBJECTIVE: Patient seen and examined. He reports urinary incontinence. He denies shortness of breath, cough, wheezing, fever, and chills. OBJECTIVE: Vital Signs Period Temp Pulse Resp BP Sys/Guerrier Pulse Ox Last 24 Hr 97.3 F-98.4 F 61-66 16-20 90-123/42-68 98-98 GENERAL: The patient is awake, alert, and fully oriented, in no acute distress. HEAD: Normal with no signs of trauma. EYES: PERRL, extraocular movements intact, sclera anicteric, conjunctiva clear. No ptosis. ENT: Ears normal, nares patent, moist mucous membranes. NECK: Trachea midline, full range of motion, supple. LUNGS: Breath sounds equal, clear to auscultation bilaterally, no wheezes, no crackles, no accessory muscle use. HEART: Regular rate and rhythm, S1, S2 without murmur, rub or gallop. ABDOMEN: Soft, nontender, nondistended, normoactive bowel sounds EXTREMITIES: 2+ pulses, warm, well-perfused, no edema. RLE erythema below the knee, warm to touch. NEUROLOGICAL: Cranial nerves II through XII grossly intact. Normal speech, gait not observed. PSYCH: Normal mood, normal affect. SKIN: Warm, dry, normal turgor, no rashes or lesions noted Laboratory Results - last 24 hr 07/12/19 07/12/19 07/13/19 17:12 23:03 06:14 WBC RBC Hgb Hct MCV MCH MCHC RDW Plt Count MPV Absolute Neuts (auto) Neutrophils % Lymphocytes % Monocytes % Eosinophils % Basophils % Nucleated RBC % Sodium Potassium Chloride Carbon Dioxide Anion Gap BUN Creatinine Est GFR (CKD-EPI)AfAm Est GFR (CKD-EPI)NonAf POC Glucometer 153 181 112 Random Glucose Calcium Phosphorus 07/13/19 07/13/19 10:35 10:35 WBC 6.5 RBC 3.80 L Hgb 11.9 Hct 35.6 MCV 93.6 MCH 31.3 MCHC 33.4 RDW 14.3 Plt Count 174 MPV 7.7 Absolute Neuts (auto) 5.2 Neutrophils % 78.9 Lymphocytes % 13.0 D Monocytes % 5.9 Eosinophils % 1.8 D Basophils % 0.4 Nucleated RBC % 0 Sodium 141 Potassium 3.9 Chloride 109 H Carbon Dioxide 29 Anion Gap 4 L BUN 14.7 Creatinine 0.7 Est GFR (CKD-EPI)AfAm 105.50 Est GFR (CKD-EPI)NonAf 91.03 POC Glucometer Random Glucose 192 H Calcium 8.0 L Phosphorus 1.9 L Active Medications Generic Name Dose Route Start Last Admin Trade Name Freq PRN Reason Stop Dose Admin Acetaminophen 650 mg 07/11/19 23:07 07/12/19 23:08 Tylenol - PO 650 mg Q6H PRN Administration PAIN OR FEVER Aspirin 81 mg 07/12/19 10:00 07/13/19 10:34 Asa - PO 81 mg DAILY GLO Administration Carvedilol 6.25 mg 07/12/19 10:00 07/13/19 10:34 Coreg - PO 6.25 mg BID GLO Administration Clopidogrel Bisulfate 75 mg 07/12/19 10:00 07/13/19 10:34 Plavix - PO 75 mg DAILY GLO Administration Enoxaparin Sodium 40 mg 07/12/19 10:00 07/13/19 10:34 Lovenox - SQ 40 mg DAILY GLO Administration Gabapentin 600 mg 07/12/19 10:00 07/13/19 10:34 Neurontin - PO 600 mg BID GLO Administration Ampicillin Sodium/Sulbactam 100 mls @ 200 mls/hr 07/12/19 02:00 07/13/19 10: 33 Sodium 3 gm/ Sodium Chloride IVPB 200 mls/hr Q8H-IV GLO Administration Azithromycin 500 mg in 250 mls @ 250 mls/hr 07/12/19 10:00 07/13/19 10:32 Zithromax 500mg Ivpb (Pre-Docked) IVPB 250 mls/hr DAILY GLO Administration Sodium Chloride 1,000 mls @ 100 mls/hr 07/12/19 18:32 07/12/19 23:05 Normal Saline - IV 100 mls/hr ASDIR GLO Administration Insulin Aspart 1 vial 07/12/19 07:00 07/13/19 12:19 Novolog Vial Sliding Scale - SQ 4 unit ACHS GLO Administration Protocol Non-Formulary Medication 1 each 07/12/19 10:00 Carbidopa/Levodopa/Entacapone [Carbidopa-Levodopa 200 Mg-Enta] PO QID LGO Selegiline HCl 5 mg 07/12/19 07:00 07/13/19 12:20 Selegiline Hcl PO 5 mg BID@0700,1100 [facility] Administration ASSESSMENT/PLAN: Mr. Liu is a 79 y/o M with PMHx of CAD (s/p CABG with subsequent PR and stenting), DM, HTN, Parkinson's disease, multiple previous epsiodes of cellulitis presents s/p fall in bathtub. #sepsis 2/2 RUL pneumonia Leukocytosis originally 11.6, today 6.5. Hypotensive on day of admission. CT chest showed RUL pneumonia, small RML infiltrate, centrilobular emphysema, pretrachial lymph node. Suspicion for TB. -isolation -sputum cultures pending-preliminary x2 negative for TB -azithromycin day 2 -Unasyn day 2 -f/u for lymph node #sepsis 2/2 RLE cellulitis Leukocytosis resolved. Afebrile. -Unasyn day 2 #fall Unknown if mechanical or result of syncope. CT head shows chronic right frontal changes, but no acute changes. CT c-spine negative for fracture. Carotid doppler showed right side carotid stenosis 50-69%. Echo normal. -continue ASA and statin -PT consult -CTA neck after 48 hours following contrast use #right common carotid stenosis -CTA neck -ASA and statin #CAD with hx of PR s/p CABG and stent -ASA, Plavix, statin #HTN -continue carvedilol #DM -SSI FEN PO monitor Phosphorus sodium/diabetic diet DVT Ppx Lovenox Visit type - Emergency Visit Emergency Visit: Yes ED Registration Date: 07/11/19 Care time: The patient presented to the Emergency Department on the above date and was hospitalized for further evaluation of their emergent condition. - New Patient This patient is new to me today: Yes Date on this admission: 07/14/19 - Critical Care Critical Care patient: No - Discharge Referral Referred to [facility] Med P.C.: No ATTENDING PHYSICIAN STATEMENT I saw and evaluated the patient. I reviewed the resident's note and discussed the case with the resident. I agree with the resident's findings and plan as documented. SUBJECTIVE: OBJECTIVE: ASSESSMENT AND PLAN:
--- NOTE | 2019-07-13 14:00 | PN ---
Teaching Attending Note Name of Resident: Abena Carroll ATTENDING PHYSICIAN STATEMENT I saw and evaluated the patient. I reviewed the resident's note and discussed the case with the resident. I agree with the resident's findings and plan as documented. SUBJECTIVE: Dyspnea and RLE pain improving. No fever/chills. No hemoptysis. OBJECTIVE: Afebrile, Hemodynamically stable. SpO2 98% on 2L. AAO x 3. Last Vital Signs Temp Pulse Resp BP Pulse Ox 97.3 F L 66 16 116/68 98 07/13/19 10:43 07/13/19 10:43 07/13/19 10:43 07/13/19 10:43 07/13/19 01:00 Heart - S1, S2, RRR Lungs - clear to auscultation Abdomen - Soft, non-tender. Bowel Sounds normal. Extremities - RLE erythema/tenderness/warmth/edema improving Neuro - Moving all 4 extremities. Laboratory Results - last 24 hr 07/12/19 07/12/19 07/13/19 17:12 23:03 06:14 WBC RBC Hgb Hct MCV MCH MCHC RDW Plt Count MPV Absolute Neuts (auto) Neutrophils % Lymphocytes % Monocytes % Eosinophils % Basophils % Nucleated RBC % Sodium Potassium Chloride Carbon Dioxide Anion Gap BUN Creatinine Est GFR (CKD-EPI)AfAm Est GFR (CKD-EPI)NonAf POC Glucometer 153 181 112 Random Glucose Calcium Phosphorus 07/13/19 07/13/19 10:35 10:35 WBC 6.5 RBC 3.80 L Hgb 11.9 Hct 35.6 MCV 93.6 MCH 31.3 MCHC 33.4 RDW 14.3 Plt Count 174 MPV 7.7 Absolute Neuts (auto) 5.2 Neutrophils % 78.9 Lymphocytes % 13.0 D Monocytes % 5.9 Eosinophils % 1.8 D Basophils % 0.4 Nucleated RBC % 0 Sodium 141 Potassium 3.9 Chloride 109 H Carbon Dioxide 29 Anion Gap 4 L BUN 14.7 Creatinine 0.7 Est GFR (CKD-EPI)AfAm 105.50 Est GFR (CKD-EPI)NonAf 91.03 POC Glucometer Random Glucose 192 H Calcium 8.0 L Phosphorus 1.9 L Current Medications Generic Name Dose Route Start Last Admin Trade Name Freq PRN Reason Stop Dose Admin Acetaminophen 650 mg 07/11/19 23:07 07/12/19 23:08 Tylenol - PO 650 mg Q6H PRN Administration PAIN OR FEVER Aspirin 81 mg 07/12/19 10:00 07/13/19 10:34 Asa - PO 81 mg DAILY GLO Administration Carvedilol 6.25 mg 07/12/19 10:00 07/13/19 10:34 Coreg - PO 6.25 mg BID GLO Administration Clopidogrel Bisulfate 75 mg 07/12/19 10:00 07/13/19 10:34 Plavix - PO 75 mg DAILY GLO Administration Enoxaparin Sodium 40 mg 07/12/19 10:00 07/13/19 10:34 Lovenox - SQ 40 mg DAILY GLO Administration Gabapentin 600 mg 07/12/19 10:00 07/13/19 10:34 Neurontin - PO 600 mg BID GLO Administration Ampicillin Sodium/Sulbactam 100 mls @ 200 mls/hr 07/12/19 02:00 07/13/19 10: 33 Sodium 3 gm/ Sodium Chloride IVPB 200 mls/hr Q8H-IV GLO Administration Azithromycin 500 mg in 250 mls @ 250 mls/hr 07/12/19 10:00 07/13/19 10:32 Zithromax 500mg Ivpb (Pre-Docked) IVPB 250 mls/hr DAILY GLO Administration Sodium Chloride 1,000 mls @ 100 mls/hr 07/12/19 18:32 07/12/19 23:05 Normal Saline - IV 100 mls/hr ASDIR GLO Administration Insulin Aspart 1 vial 07/12/19 07:00 07/13/19 12:19 Novolog Vial Sliding Scale - SQ 4 unit ACHS GLO Administration Protocol Non-Formulary Medication 1 each 07/12/19 10:00 Carbidopa/Levodopa/Entacapone [Carbidopa-Levodopa 200 Mg-Enta] PO QID GLO Selegiline HCl 5 mg 07/12/19 07:00 07/13/19 12:20 Selegiline Hcl PO 5 mg BID@0700,1100 GLO Administration Home Medications Medication Instructions Recorded Carbidopa/Levodopa/Entacapone 1 each PO QID 10/08/18 [Carbidopa-Levodopa 200 mg-Enta] Carvedilol [Coreg -] 6.25 mg PO BID 10/08/18 Furosemide [Lasix] 40 mg PO DAILY #0 10/08/18 Gabapentin 600 mg PO BID 10/08/18 Clopidogrel Bisulfate [Clopidogrel] 75 mg PO DAILY 07/11/19 Aspirin [ASA -] 81 mg PO DAILY 07/12/19 Selegiline HCl 5 mg PO ASDIR 07/12/19 ASSESSMENT/PLAN 79 year old male with history of CAD s/p CABG s/p [place] s/p PCI/Stent, DM 2, HTN, Parkinson's disease, presents s/p fall in bathtub without HI/LOC, found to have RLE Cellulitis and Pneumonia. No preceding lightheadedness/CP/palpitations. 1. Sepsis secondary to RUL/RML Pneumonia and RLE Cellulitis Continue Unasyn/Azithromycin Concern for TB based on RUL CT findings Isolation, AFB x 3 samples. Sputum Cx pending. Sepsis improved, tolerating oral intake, discontinue IV fluids. 2. RLE Cellulitis Continue Unasyn Afebrile, hemodynamically stable Will monitor. 3. Fall, etiology unclear. No clear evidence of syncope, CT head reveals Hx of cerebrovascular disease. CT Head - neg for acute intracranial infarct or hemorrhage. Chronic R frontal/ subcortical infarct CT C Spine - No fracture. Carotid Duplex - 50-69% stenosis R common carotid Echo - normal. On Antiplatelets and Statin. PT eval. 4. R Common Carotid Stenosis CTA recommended - will order tomorrow due to recent CT contrast load. On ASA/Clopidogrel/Statin 5. CAD s/p CABG s/p PCI/Stent - continue Aspirin/Clopidogrel, BB, Statin 6. DM 2 - Maintain on Novolog sliding scale. Does not appear to be on a diabetic home regimen, will clarify. 7. HTN - continue Coreg. 8. Parkinson's Disease - continue Carbidopa/Levodopa/Entacapone, Selegiline. PT eval. 9. Chronic Venous Stasis - normally on Lasix at home, held in favor of gentle hydration on admission. Once oral fluid intake resumes adequately and BPs stabilize, resume home lasix. IV fluids discontinued. 10. Prominent pretracheal mediastinal LN on CT - radiology recommends interval follow up CT. 11. Hypophosphatemia - repleted. DVT Px - Lovenox SQ.
[2019-07-13] MEDS ORDERED: POTASSIUM PHOSPHATE 30 MM in SODIUM CHLORIDE 500 ML IVPB ONE (14:21)
[2019-07-13] MEDS: ACETAMINOPHEN 325 MG TABLET (FP) PO PRN (22:02)
[2019-07-14] MEDS: AMPICILLIN NA/SULBACTAM NA 3 GM in SODIUM CHLORIDE 100 ML IVPB SCH ×3 (01:19→18:39)
[2019-07-14] MEDS ORDERED: PT OWN MED DRAWER 7, Y5N ONE ×3 (01:20→18:19)
[2019-07-14 06:11] LABS: BASO % 0.6 % (0-2.0); EOS % 3.6 % (0-4.5); HEMOGLOBIN 11.7 GM/dL (11.7-16.9); LYMPH % 21.9 % (8-40); MCH 31.4 pg (25.7-33.7); MCHC 33.4 g/dl (32.0-35.9); MEAN CELL VOLUME 93.9 fl (80-96); MEAN PLT VOLUME 8.4 fl (7.5-11.1); MONO % 6.4 % (3.8-10.2); NEUT % 67.5 % (42.8-82.8); PLATELET COUNT 188 K/MM3 (134-434); RBC 3.73 M/mm3 (4.00-5.60); RDW 14.3 % (11.9-15.9); WHITE BLOOD COUNT 6.4 K/mm3 (4.0-10.0)
[2019-07-14 06:25] LABS: BILIRUBIN,TOTAL 0.5 mg/dL (0.2-1); BLOOD UREA NITROGEN 12.9 mg/dL (7-18); CALCIUM 8.3 mg/dL (8.5-10.1); CREATININE 0.8 mg/dL (0.55-1.3); MAGNESIUM 2.4 mg/dL (1.8-2.4); PHOSPHOROUS 3.1 mg/dL (2.5-4.9); POTASSIUM 3.9 mmol/L (3.5-5.1); TOT PROT 5.3 g/dl (6.4-8.2)
[2019-07-14] MEDS: SELEGILINE HCL 5 MG CAPSULE PO SCH ×2 (06:28→10:13)
[2019-07-14] MEDS: INSULIN SLIDING SCALE (NOVOLOG) 1 VIAL SQ SCH ×4 (06:28→22:09)
[2019-07-14] MEDS: AZITHROMYCIN IVPB 500 MG/250 ML BAG IVPB SCH (10:11)
[2019-07-14] MEDS: CARVEDILOL 6.25 MG TABLET (FP) PO SCH ×2 (10:12→22:09)
[2019-07-14] MEDS: ASPIRIN 81 MG CHEWABLE TABLETS PO SCH (10:12)
[2019-07-14] MEDS: ENOXAPARIN NA (PORCINE) 40 MG/0.4 ML DISP.SYRIN SQ SCH (10:12)
[2019-07-14] MEDS: CLOPIDOGREL BISULFATE 75 MG TABLET (FP) PO SCH (10:12)
[2019-07-14] MEDS: GABAPENTIN 300 MG CAPSULE (FP) PO SCH ×2 (10:12→22:09)
--- NOTE | 2019-07-14 12:07 | PN ---
Physical Exam: SUBJECTIVE: Patient seen and examined. He reports right LE tenderness. He denies SOB, chest pain, and wheezing. OBJECTIVE: Vital Signs Period Temp Pulse Resp BP Sys/Guerrier Pulse Ox Last 24 Hr 97.3 F-98.3 F 56-68 16-20 100-132/55-68 96 GENERAL: The patient is awake, alert, and oriented x 3, in no acute distress. HEAD: Normal with no signs of trauma. EYES: PERRL, extraocular movements intact, sclera anicteric, conjunctiva clear. No ptosis. ENT: Ears normal, nares patent, moist mucous membranes. NECK: Trachea midline, full range of motion, supple. LUNGS: Breath sounds equal, clear to auscultation bilaterally, no wheezes, no crackles, no accessory muscle use. HEART: Regular rate and rhythm, S1, S2 without murmur, rub or gallop. ABDOMEN: Soft, nontender, nondistended, normoactive bowel sounds, no guarding EXTREMITIES: 2+ pulses, warm, well-perfused, no edema. NEUROLOGICAL: Cranial nerves II through XII grossly intact. Normal speech, gait not observed. PSYCH: Normal mood, normal affect. SKIN: Warm, dry, normal turgor, no rashes or lesions noted Laboratory Results - last 24 hr 07/13/19 07/13/19 07/13/19 12:17 16:58 21:56 WBC RBC Hgb Hct MCV MCH MCHC RDW Plt Count MPV Absolute Neuts (auto) Neutrophils % Lymphocytes % Monocytes % Eosinophils % Basophils % Nucleated RBC % Sodium Potassium Chloride Carbon Dioxide Anion Gap BUN Creatinine Est GFR (CKD-EPI)AfAm Est GFR (CKD-EPI)NonAf POC Glucometer 221 108 143 Random Glucose Calcium Phosphorus Magnesium Total Bilirubin AST ALT Alkaline Phosphatase Total Protein Albumin 07/14/19 07/14/19 07/14/19 05:25 05:25 06:27 WBC 6.4 RBC 3.73 L Hgb 11.7 Hct 35.0 L MCV 93.9 MCH 31.4 MCHC 33.4 RDW 14.3 Plt Count 188 MPV 8.4 Absolute Neuts (auto) 4.3 Neutrophils % 67.5 Lymphocytes % 21.9 D Monocytes % 6.4 Eosinophils % 3.6 D Basophils % 0.6 Nucleated RBC % 0 Sodium 143 Potassium 3.9 Chloride 109 H Carbon Dioxide 32 Anion Gap 2 L BUN 12.9 Creatinine 0.8 Est GFR (CKD-EPI)AfAm 99.87 Est GFR (CKD-EPI)NonAf 86.17 POC Glucometer 110 Random Glucose 118 H Calcium 8.3 L Phosphorus 3.1 Magnesium 2.4 Total Bilirubin 0.5 AST 12 L ALT 12 L Alkaline Phosphatase 71 Total Protein 5.3 L Albumin 2.0 L 07/14/19 11:51 WBC RBC Hgb Hct MCV MCH MCHC RDW Plt Count MPV Absolute Neuts (auto) Neutrophils % Lymphocytes % Monocytes % Eosinophils % Basophils % Nucleated RBC % Sodium Potassium Chloride Carbon Dioxide Anion Gap BUN Creatinine Est GFR (CKD-EPI)AfAm Est GFR (CKD-EPI)NonAf POC Glucometer 144 Random Glucose Calcium Phosphorus Magnesium Total Bilirubin AST ALT Alkaline Phosphatase Total Protein Albumin Active Medications Generic Name Dose Route Start Last Admin Trade Name Freq PRN Reason Stop Dose Admin Acetaminophen 650 mg 07/11/19 23:07 07/13/19 22:02 Tylenol - PO 650 mg Q6H PRN Administration PAIN OR FEVER Aspirin 81 mg 07/12/19 10:00 07/14/19 10:12 Asa - PO 81 mg DAILY GLO Administration Carvedilol 6.25 mg 07/12/19 10:00 07/14/19 10:12 Coreg - PO 6.25 mg BID GLO Administration Clopidogrel Bisulfate 75 mg 07/12/19 10:00 07/14/19 10:12 Plavix - PO 75 mg DAILY GLO Administration Enoxaparin Sodium 40 mg 07/12/19 10:00 07/14/19 10:12 Lovenox - SQ 40 mg DAILY GLO Administration Gabapentin 600 mg 07/12/19 10:00 07/14/19 10:12 Neurontin - PO 600 mg BID GLO Administration Ampicillin Sodium/Sulbactam 100 mls @ 200 mls/hr 07/12/19 02:00 07/14/19 10: 11 Sodium 3 gm/ Sodium Chloride IVPB 200 mls/hr Q8H-IV GLO Administration Azithromycin 500 mg in 250 mls @ 250 mls/hr 07/12/19 10:00 07/14/19 10:11 Zithromax 500mg Ivpb (Pre-Docked) IVPB 250 mls/hr DAILY GLO Administration Insulin Aspart 1 vial 07/12/19 07:00 07/14/19 11:53 Novolog Vial Sliding Scale - SQ Not Given ACHS [facility] Protocol Non-Formulary Medication 1 each 07/12/19 10:00 Carbidopa/Levodopa/Entacapone [Carbidopa-Levodopa 200 Mg-Enta] PO QID [facility] Selegiline HCl 5 mg 07/12/19 07:00 07/14/19 10:13 Selegiline Hcl PO 5 mg BID@0700,1100 [facility] Administration ASSESSMENT/PLAN: Mr. Liu is a 79 y/o M with PMHx of CAD (s/p CABG with subsequent DC and stenting), DM, HTN, Parkinson's disease, multiple previous epsiodes of cellulitis presents s/p fall in bathtub. #sepsis 2/2 RUL pneumonia Leukocytosis originally 11.6, today 6.5. Hypotensive on day of admission. CT chest showed RUL pneumonia, small RML infiltrate, centrilobular emphysema, pretrachial lymph node. Suspicion for TB. -isolation -sputum cultures pending-preliminary x2 negative for TB -azithromycin day 3 -Unasyn day 3 -f/u for lymph node #sepsis 2/2 RLE cellulitis Leukocytosis resolved. Afebrile. -Unasyn day 3 #fall Unknown if mechanical or result of syncope. CT head shows chronic right frontal changes, but no acute changes. CT c-spine negative for fracture. Carotid doppler showed right side carotid stenosis 50-69%. Echo normal. -continue ASA and statin -PT consult -CTA neck after 48 hours following contrast use #right common carotid stenosis -CTA neck -ASA and statin #CAD with hx of DC s/p CABG and stent -ASA, Plavix, statin #HTN -continue carvedilol #DM -SSI FEN PO monitor Phosphorus sodium/diabetic diet DVT Ppx Lovenox Visit type - Emergency Visit Emergency Visit: Yes ED Registration Date: 07/11/19 Care time: The patient presented to the Emergency Department on the above date and was hospitalized for further evaluation of their emergent condition. - New Patient This patient is new to me today: No - Critical Care Critical Care patient: No - Discharge Referral Referred to [facility] Med P.C.: No ATTENDING PHYSICIAN STATEMENT I saw and evaluated the patient. I reviewed the resident's note and discussed the case with the resident. I agree with the resident's findings and plan as documented. SUBJECTIVE: OBJECTIVE: ASSESSMENT AND PLAN:
--- NOTE | 2019-07-14 16:16 | PN ---
Teaching Attending Note Name of Resident: Abena Carroll ATTENDING PHYSICIAN STATEMENT I saw and evaluated the patient. I reviewed the resident's note and discussed the case with the resident. I agree with the resident's findings and plan as documented. SUBJECTIVE:asymptomatic. states breathing is better and no longer having leg pain. denies Cp,SOB, fever, chills, N/V/C/D OBJECTIVE: Last Vital Signs Temp Pulse Resp BP Pulse Ox 98.5 F 60 20 139/75 96 07/14/19 15:18 07/14/19 15:18 07/14/19 15:18 07/14/19 15:18 07/13/19 21:00 General NAD CV S1 S2 RRR no murmur/rub/gallop Lungs CTA B/L no wheezing/rlaes/rhonchi Extremities RLE trace pitting edema, chronic venous stasis. no tenderness or warmth ASSESSMENT AND PLAN: 79 year old male with history of CAD s/p CABG s/p [place] s/p PCI/Stent, DM 2, HTN, Parkinson's disease, presents s/p fall in bathtub without HI/LOC, found to have RLE Cellulitis and Pneumonia. No preceding lightheadedness/CP/palpitations. 1. Sepsis secondary to RUL/RML Pneumonia and RLE Cellulitis- clinically improved. saturating 96% on RA> AFB neg x2. awaiting 3rd sample sent today. on unasyn/azithro day 3. airborne isolation. f/u Cx 2. RLE Cellulitis- as per pt improved. some mild erythema. on unasyn. Cx negative 3. Fall, etiology unclear. No clear evidence of syncope, CT head reveals Hx of cerebrovascular disease.- claims he did not have LOC. carotid duplex showing 50- 69% stenosis. CTA ordered. PT eval. 4. R Common Carotid Stenosis- F/u CTA. On ASA/Clopidogrel/Statin 5. CAD s/p CABG s/p PCI/Stent - continue Aspirin/Clopidogrel, BB, Statin 6. DM 2 - Maintain on Novolog sliding scale. Does not appear to be on a diabetic home regimen, will clarify. 7. HTN - continue Coreg. 8. Parkinson's Disease - continue Carbidopa/Levodopa/Entacapone, Selegiline. PT eval. 9. Chronic Venous Stasis - normally on Lasix at home, held in favor of gentle hydration on admission. Once oral fluid intake resumes adequately and BPs stabilize, resume home lasix. IV fluids discontinued. 10. Prominent pretracheal mediastinal LN on CT - radiology recommends interval follow up CT. 11. Hypophosphatemia - repleted. 12.DVT Px - Lovenox SQ. 13. PT 40ft. patient agreeable to SNF placement.
[2019-07-14] MEDS: CARBIDOP 50MG/LEVODOPA 200MG/ENTACAPONE 200MG TABLET PO SCH (22:08)
[2019-07-14] MEDS: ACETAMINOPHEN 325 MG TABLET (FP) PO PRN (22:09)
[2019-07-15] MEDS ORDERED: PT OWN MED DRAWER 7, Y5N ONE ×5 (00:04→21:33)
[2019-07-15] MEDS: AMPICILLIN NA/SULBACTAM NA 3 GM in SODIUM CHLORIDE 100 ML IVPB SCH ×3 (02:00→17:59)
[2019-07-15] MEDS: SELEGILINE HCL 5 MG CAPSULE PO SCH ×2 (06:13→11:43)
[2019-07-15 06:21] LABS: MCHC 33.5 g/dl (32.0-35.9)
[2019-07-15] MEDS: INSULIN SLIDING SCALE (NOVOLOG) 1 VIAL SQ SCH ×4 (06:21→21:44)
[2019-07-15 06:54] LABS: BASO % 0.6 % (0-2.0); EOS % 3.8 % (0-4.5); HEMATOCRIT 35.8 % (35.4-49); LYMPH % 26.9 % (8-40); MCH 31.2 pg (25.7-33.7); MEAN PLT VOLUME 8.6 fl (7.5-11.1); MONO % 6.2 % (3.8-10.2); NEUT % 62.5 % (42.8-82.8); PLATELET COUNT 198 K/MM3 (134-434); RBC 3.85 M/mm3 (4.00-5.60); RDW 14.2 % (11.9-15.9); WHITE BLOOD COUNT 5.3 K/mm3 (4.0-10.0)
[2019-07-15] MEDS ORDERED: INSULIN SLIDING SCALE (NOVOLOG) 1 VIAL SQ ONE ×2 (07:08→07:10)
[2019-07-15 07:12] LABS: ALBUMIN 2.1 g/dl (3.4-5.0); ALK PHOS 78 U/L (45-117); ANION GAP 4 MMOL/L (8-16); BILIRUBIN,TOTAL 0.2 mg/dL (0.2-1); BLOOD UREA NITROGEN 14.1 mg/dL (7-18); CALCIUM 8.2 mg/dL (8.5-10.1); CHLORIDE 107 mmol/L (98-107); CO2 31 mmol/L (21-32); CREATININE 0.7 mg/dL (0.55-1.3); GLUCOSE,RANDOM 111 mg/dL (74-106); POTASSIUM 4.1 mmol/L (3.5-5.1); SGOT/AST 12 U/L (15-37); SGPT/ALT < 6 U/L (13-61); SODIUM 142 mmol/L (136-145); TOT PROT 5.5 g/dl (6.4-8.2)
[2019-07-15] MEDS: CARVEDILOL 6.25 MG TABLET (FP) PO SCH ×2 (10:18→21:43)
[2019-07-15] MEDS: ENOXAPARIN NA (PORCINE) 40 MG/0.4 ML DISP.SYRIN SQ SCH (10:18)
[2019-07-15] MEDS: GABAPENTIN 300 MG CAPSULE (FP) PO SCH ×2 (10:18→21:43)
[2019-07-15] MEDS: ASPIRIN 81 MG CHEWABLE TABLETS PO SCH (10:18)
[2019-07-15] MEDS: CLOPIDOGREL BISULFATE 75 MG TABLET (FP) PO SCH (10:19)
[2019-07-15] MEDS: AZITHROMYCIN IVPB 500 MG/250 ML BAG IVPB SCH (10:20)
[2019-07-15] MEDS: CARBIDOP 50MG/LEVODOPA 200MG/ENTACAPONE 200MG TABLET PO SCH ×5 (11:42→23:02)
--- NOTE | 2019-07-15 11:51 | PN ---
Teaching Attending Note Name of Resident: Abena Carroll ATTENDING PHYSICIAN STATEMENT I saw and evaluated the patient. I reviewed the resident's note and discussed the case with the resident. I agree with the resident's findings and plan as documented. SUBJECTIVE:asymptomatic. denies Cp, SOB, fever, chills, N/v/C/d, cough OBJECTIVE: Last Vital Signs Temp Pulse Resp BP Pulse Ox 97.7 F 62 16 120/62 96 07/15/19 10:00 07/15/19 10:00 07/15/19 10:00 07/15/19 10:00 07/14/19 21:00 General NAD CV S1 S2 RRR no murmur/rub/gallop Lungs CTA B/L no wheezing/rlaes/rhonchi Extremities RLE mild erythema to anterior [place] no warmth or tenderness no edema ASSESSMENT AND PLAN: 79 year old male with history of CAD s/p CABG s/p [place] s/p PCI/Stent, DM 2, HTN, Parkinson's disease, presents s/p fall in bathtub without HI/LOC, found to have RLE Cellulitis and Pneumonia. No preceding lightheadedness/CP/palpitations. 1. Sepsis secondary to RUL/RML Pneumonia and RLE Cellulitis- clinically improved. saturating 96% on RA. AFB neg x3. can d/c isolation. on unasyn/ azithro day 4. airborne isolation. f/u Cx 2. RLE Cellulitis-conitnues to improved on unasyn. can switch to augmentin. Cx negative 3. Fall, etiology unclear. No clear evidence of syncope, CT head reveals Hx of cerebrovascular disease.- claims he did not have LOC. carotid duplex showing 50- 69% stenosis. CT still not done. this can be monitored as outpatient as pt is not a candidate for intervention at this time. PT eval. 4. R Common Carotid Stenosis- will need periodic surveillance. On ASA/ Clopidogrel/Statin 5. CAD s/p CABG s/p PCI/Stent - continue Aspirin/Clopidogrel, BB, Statin 6. DM 2 - Maintain on Novolog sliding scale. Does not appear to be on a diabetic home regimen, will clarify. 7. HTN - continue Coreg. 8. Parkinson's Disease - continue Carbidopa/Levodopa/Entacapone, Selegiline. PT eval. 9. Chronic Venous Stasis - normally on Lasix at home, held in favor of gentle hydration on admission. Once oral fluid intake resumes adequately and BPs stabilize, resume home lasix. IV fluids discontinued. 10. Prominent pretracheal mediastinal LN on CT - radiology recommends interval follow up CT. 11. Hypophosphatemia - repleted. 12.DVT Px - Lovenox SQ. 13. PT 40ft. patient agreeable to SNF placement. medically optimized for discharge at this time. awaiting [facility] bed availability and placement
--- NOTE | 2019-07-15 13:45 | PN ---
Physical Exam: SUBJECTIVE: Patient seen and examined. He is forgetful and does not recall having cough or shortness of breath. He reports tenderness of right lower extremity and right 3rd toe. OBJECTIVE: Vital Signs Period Temp Pulse Resp BP Sys/Guerrier Pulse Ox Last 24 Hr 97.4 F-98.6 F 59-62 16-20 96-139/51-75 96 GENERAL: The patient is awake, alert, and oriented to person and time, in no acute distress. HEAD: Normal with no signs of trauma. EYES: PERRL, extraocular movements intact, sclera anicteric, conjunctiva clear. No ptosis. ENT: Ears normal, nares patent, moist mucous membranes. NECK: Trachea midline, full range of motion, supple. LUNGS: Breath sounds equal, clear to auscultation bilaterally, no wheezes, no crackles, no accessory muscle use. HEART: Regular rate and rhythm, S1, S2 without murmur, rub or gallop. ABDOMEN: Soft, nontender, nondistended, normoactive bowel sounds, no guarding EXTREMITIES: 2+ pulses, warm, well-perfused, no edema. RLE erythema, more anterior aspect of leg below knee, also on dorsal surface which is improved from yesterday. Right 3rd toe ulceration with scab that is tender to palpation. NEUROLOGICAL: Cranial nerves II through XII grossly intact. Normal speech, gait not observed. PSYCH: Normal mood, normal affect. SKIN: Warm, dry, normal turgor, no rashes or lesions noted Laboratory Results - last 24 hr 07/14/19 07/14/19 07/15/19 16:22 22:07 05:25 WBC 5.3 RBC 3.85 L Hgb 12.0 Hct 35.8 MCV 93.0 MCH 31.2 MCHC 33.5 RDW 14.2 Plt Count 198 MPV 8.6 Absolute Neuts (auto) 3.3 Neutrophils % 62.5 Lymphocytes % 26.9 D Monocytes % 6.2 Eosinophils % 3.8 Basophils % 0.6 Nucleated RBC % 0 Sodium Potassium Chloride Carbon Dioxide Anion Gap BUN Creatinine Est GFR (CKD-EPI)AfAm Est GFR (CKD-EPI)NonAf POC Glucometer 126 171 Random Glucose Calcium Total Bilirubin AST ALT Alkaline Phosphatase Total Protein Albumin 07/15/19 07/15/19 07/15/19 05:25 06:17 11:56 WBC RBC Hgb Hct MCV MCH MCHC RDW Plt Count MPV Absolute Neuts (auto) Neutrophils % Lymphocytes % Monocytes % Eosinophils % Basophils % Nucleated RBC % Sodium 142 Potassium 4.1 Chloride 107 Carbon Dioxide 31 Anion Gap 4 L BUN 14.1 Creatinine 0.7 Est GFR (CKD-EPI)AfAm 105.50 Est GFR (CKD-EPI)NonAf 91.03 POC Glucometer 105 189 Random Glucose 111 H Calcium 8.2 L Total Bilirubin 0.2 AST 12 L ALT < 6 L Alkaline Phosphatase 78 Total Protein 5.5 L Albumin 2.1 L Active Medications Generic Name Dose Route Start Last Admin Trade Name Freq PRN Reason Stop Dose Admin Acetaminophen 650 mg 07/11/19 23:07 07/14/19 22:09 Tylenol - PO 650 mg Q6H PRN Administration PAIN OR FEVER Aspirin 81 mg 07/12/19 10:00 07/15/19 10:18 Asa - PO 81 mg DAILY GLO Administration Carbidopa/Levodopa/Entacapone 1 each 07/14/19 18:30 07/15/19 11:42 Stalevo 200 - PO 1 each QID GLO Administration Carvedilol 6.25 mg 07/12/19 10:00 07/15/19 10:18 Coreg - PO 6.25 mg BID GLO Administration Clopidogrel Bisulfate 75 mg 07/12/19 10:00 07/15/19 10:19 Plavix - PO 75 mg DAILY GLO Administration Enoxaparin Sodium 40 mg 07/12/19 10:00 07/15/19 10:18 Lovenox - SQ 40 mg DAILY GLO Administration Gabapentin 600 mg 07/12/19 10:00 07/15/19 10:18 Neurontin - PO 600 mg BID GLO Administration Ampicillin Sodium/Sulbactam 100 mls @ 200 mls/hr 07/12/19 02:00 07/15/19 11: 41 Sodium 3 gm/ Sodium Chloride IVPB 200 mls/hr Q8H-IV GLO Administration Azithromycin 500 mg in 250 mls @ 250 mls/hr 07/12/19 10:00 07/15/19 10:20 Zithromax 500mg Ivpb (Pre-Docked) IVPB 250 mls/hr DAILY GLO Administration Insulin Aspart 1 vial 07/12/19 07:00 07/15/19 12:30 Novolog Vial Sliding Scale - SQ 2 unit ACHS GLO Administration Protocol Chaceiline HCl 5 mg 07/12/19 07:00 07/15/19 11:43 Selegiline Hcl PO 5 mg BID@0700,1100 [facility] Administration ASSESSMENT/PLAN: Mr. Liu is a 79 y/o M with PMHx of CAD (s/p CABG with subsequent ND and stenting), DM, HTN, Parkinson's disease, multiple previous episodes of cellulitis presents s/p fall in bathtub. #sepsis 2/2 RUL pneumonia Leukocytosis originally 11.6, today 5.3. Hypotensive on day of admission. CT chest showed RUL pneumonia, small RML infiltrate, centrilobular emphysema, pretrachial lymph node. Suspicion for TB based off radiology but sputum cultures are negative. -isolation discontinued -sputum cultures negative -azithromycin day 4 -Unasyn day 4 -f/u for lymph node #sepsis 2/2 RLE cellulitis Leukocytosis resolved. Afebrile. Improving. -Unasyn day 4 #fall Unknown if mechanical or result of syncope. CT head shows chronic right frontal changes, but no acute changes. CT c-spine negative for fracture. Carotid doppler showed right side carotid stenosis 50-69%. Echo normal. -continue ASA and statin -PT consult- 45 feet today #right common carotid stenosis -ASA and statin #CAD with hx of ND s/p CABG and stent -ASA, Plavix, statin #HTN -continue carvedilol #DM -SSI FEN PO monitor Phosphorus sodium/diabetic diet DVT Ppx Lovenox Visit type - Emergency Visit Emergency Visit: Yes ED Registration Date: 07/11/19 Care time: The patient presented to the Emergency Department on the above date and was hospitalized for further evaluation of their emergent condition. - New Patient This patient is new to me today: No - Critical Care Critical Care patient: No - Discharge Referral Referred to [facility] No ATTENDING PHYSICIAN STATEMENT I saw and evaluated the patient. I reviewed the resident's note and discussed the case with the resident. I agree with the resident's findings and plan as documented. SUBJECTIVE: OBJECTIVE: ASSESSMENT AND PLAN:
[2019-07-16] MEDS ORDERED: PT OWN MED DRAWER 7, Y5N ONE ×5 (01:55→20:59)
[2019-07-16] MEDS: AMPICILLIN NA/SULBACTAM NA 3 GM in SODIUM CHLORIDE 100 ML IVPB SCH ×3 (01:58→17:55)
[2019-07-16 06:23] LABS: BASO % 0.9 % (0-2.0); EOS % 3.8 % (0-4.5); HEMATOCRIT 36.9 % (35.4-49); HEMOGLOBIN 12.4 GM/dL (11.7-16.9); MCH 31.4 pg (25.7-33.7); MCHC 33.5 g/dl (32.0-35.9); MEAN CELL VOLUME 93.7 fl (80-96); MEAN PLT VOLUME 8.2 fl (7.5-11.1); MONO % 6.5 % (3.8-10.2); NEUT % 60.8 % (42.8-82.8); PLATELET COUNT 189 K/MM3 (134-434); RBC 3.94 M/mm3 (4.00-5.60); RDW 14.2 % (11.9-15.9); WHITE BLOOD COUNT 4.8 K/mm3 (4.0-10.0)
[2019-07-16] MEDS: INSULIN SLIDING SCALE (NOVOLOG) 1 VIAL SQ SCH ×4 (06:37→21:14)
[2019-07-16] MEDS: SELEGILINE HCL 5 MG CAPSULE PO SCH ×2 (06:38→10:48)
[2019-07-16 06:43] LABS: ALBUMIN 2.1 g/dl (3.4-5.0); BILIRUBIN,TOTAL 0.2 mg/dL (0.2-1); BLOOD UREA NITROGEN 20.7 mg/dL (7-18); CALCIUM 8.6 mg/dL (8.5-10.1); CREATININE 0.8 mg/dL (0.55-1.3); POTASSIUM 4.1 mmol/L (3.5-5.1); TOT PROT 5.5 g/dl (6.4-8.2)
[2019-07-16] MEDS: ENOXAPARIN NA (PORCINE) 40 MG/0.4 ML DISP.SYRIN SQ SCH (10:30)
[2019-07-16] MEDS: ASPIRIN 81 MG CHEWABLE TABLETS PO SCH (10:31)
[2019-07-16] MEDS: GABAPENTIN 300 MG CAPSULE (FP) PO SCH ×2 (10:31→21:13)
[2019-07-16] MEDS: CARVEDILOL 6.25 MG TABLET (FP) PO SCH ×2 (10:31→21:13)
[2019-07-16] MEDS: CLOPIDOGREL BISULFATE 75 MG TABLET (FP) PO SCH (10:32)
[2019-07-16] MEDS: CARBIDOP 50MG/LEVODOPA 200MG/ENTACAPONE 200MG TABLET PO SCH ×4 (10:33→21:15)
[2019-07-16] MEDS: AZITHROMYCIN IVPB 500 MG/250 ML BAG IVPB SCH (11:29)
--- NOTE | 2019-07-16 12:21 | PN ---
Teaching Attending Note Name of Resident: Abena Carroll ATTENDING PHYSICIAN STATEMENT I saw and evaluated the patient. I reviewed the resident's note and discussed the case with the resident. I agree with the resident's findings and plan as documented. SUBJECTIVE:asymptomatic. denies Cp, SOB, fever, chills, N/V/C/D OBJECTIVE: Last Vital Signs Temp Pulse Resp BP Pulse Ox 97.8 F 56 L 18 119/64 98 07/16/19 08:11 07/16/19 08:11 07/16/19 08:11 07/16/19 08:11 07/15/19 21:00 General NAD CV S1 S2 RRR no murmur/rub/gallop Lungs CTA B/L no wheezing/rlaes/rhonchi Extremities RLE mild erythema to anterior benito no warmth or tenderness no edema ASSESSMENT AND PLAN: 79 year old male with history of CAD s/p CABG s/p [place] s/p PCI/Stent, DM 2, HTN, Parkinson's disease, presents s/p fall in bathtub without HI/LOC, found to have RLE Cellulitis and Pneumonia. No preceding lightheadedness/CP/palpitations. 1. Sepsis secondary to RUL/RML Pneumonia and RLE Cellulitis- clinically improved. saturating 96% on RA. AFB neg x3. on unasyn/azithro day 5. can d/c azithro after todays dose 2. RLE Cellulitis-conitnues to improved on unasyn. can switch to augmentin to complete 10 days. Cx negative 3. Fall, etiology unclear. No clear evidence of syncope, CT head reveals Hx of cerebrovascular disease.- claims he did not have LOC. carotid duplex showing 50- 69% stenosis. CT still not done. this can be monitored as outpatient as pt is not a candidate for intervention at this time. PT eval. 4. R Common Carotid Stenosis- will need periodic surveillance. On ASA/ Clopidogrel/Statin 5. CAD s/p CABG s/p PCI/Stent - continue Aspirin/Clopidogrel, BB, Statin 6. DM 2 - Maintain on Novolog sliding scale. Does not appear to be on a diabetic home at home. start metformin 500mg daily. can repeat A1c in 3 months 7. HTN - continue Coreg. 8. Parkinson's Disease - continue Carbidopa/Levodopa/Entacapone, Selegiline. PT eval. 9. Chronic Venous Stasis - normally on Lasix at home, held in favor of gentle hydration on admission. Once oral fluid intake resumes adequately and BPs stabilize, resume home lasix. IV fluids discontinued. 10. Prominent pretracheal mediastinal LN on CT - radiology recommends interval follow up CT. 11. Hypophosphatemia - repleted. 12.DVT Px - Lovenox SQ. 13. PT 40ft. patient agreeable to SNF placement. medically optimized for discharge at this time. awaiting [facility] bed availability and placement
--- NOTE | 2019-07-16 13:46 | DS ---
Physical Exam: SUBJECTIVE: Patient seen and examined. He is forgetful and does not recall having cough or shortness of breath. He reports tenderness of right lower extremity and right 3rd toe. OBJECTIVE: Vital Signs Period Temp Pulse Resp BP Sys/Guerrier Pulse Ox Last 24 Hr 97.6 F-98.0 F 56-69 18-18 104-120/52-64 98 PHYSICAL EXAM GENERAL: The patient is awake, alert, and fully oriented, in no acute distress. HEAD: Normal with no signs of trauma. EYES: PERRL, extraocular movements intact, sclera anicteric, conjunctiva clear. ENT: Ears normal, nares patent, oropharynx clear without exudates, moist mucous membranes. NECK: Trachea midline, full range of motion, supple. LUNGS: Breath sounds equal, clear to auscultation bilaterally, no wheezes, no crackles, no accessory muscle use. HEART: Regular rate and rhythm, S1, S2 without murmur, rub or gallop. ABDOMEN: Soft, nontender, nondistended, normoactive bowel sounds, no guarding, no rebound, no hepatosplenomegaly, no masses. EXTREMITIES: 2+ pulses, warm, well-perfused, no edema. NEUROLOGICAL: Cranial nerves II through XII grossly intact. Normal speech, gait not observed. PSYCH: Normal mood, normal affect. SKIN: Warm, dry, normal turgor, no rashes or lesions noted. LABS Laboratory Results - last 24 hr 07/15/19 07/15/19 07/16/19 16:57 21:39 05:15 WBC 4.8 RBC 3.94 L Hgb 12.4 Hct 36.9 MCV 93.7 MCH 31.4 MCHC 33.5 RDW 14.2 Plt Count 189 MPV 8.2 Absolute Neuts (auto) 2.9 Neutrophils % 60.8 Lymphocytes % 28.0 Monocytes % 6.5 Eosinophils % 3.8 Basophils % 0.9 Nucleated RBC % 0 Sodium Potassium Chloride Carbon Dioxide Anion Gap BUN Creatinine Est GFR (CKD-EPI)AfAm Est GFR (CKD-EPI)NonAf POC Glucometer 132 168 Random Glucose Calcium Total Bilirubin AST ALT Alkaline Phosphatase Total Protein Albumin 07/16/19 07/16/19 07/16/19 05:15 06:34 11:40 WBC RBC Hgb Hct MCV MCH MCHC RDW Plt Count MPV Absolute Neuts (auto) Neutrophils % Lymphocytes % Monocytes % Eosinophils % Basophils % Nucleated RBC % Sodium 139 Potassium 4.1 Chloride 104 Carbon Dioxide 32 Anion Gap 3 L BUN 20.7 H Creatinine 0.8 Est GFR (CKD-EPI)AfAm 99.87 Est GFR (CKD-EPI)NonAf 86.17 POC Glucometer 119 139 Random Glucose 119 H Calcium 8.6 Total Bilirubin 0.2 AST 14 L ALT 7 L Alkaline Phosphatase 79 Total Protein 5.5 L Albumin 2.1 L HOSPITAL COURSE: Mr. James is a 79 y/o male with PMHx of CAD (s/p CABG with subsequent [place] and stenting), DM, HTN, Parkinson's disease, multiple previous episodes of cellulitis presents s/p fall in bathtub. chronic right frontal changes, but no acute changes. CT c-spine negative for fracture. Carotid doppler showed right side carotid stenosis 50-69%. ASA and statin continued. Echo normal. Pt was found to be septic. Leukocytosis originally 11.6, today 5.3. Hypotensive on day of admission. CT chest showed RUL pneumonia, small RML infiltrate, centrilobular emphysema, pretrachial lymph node. Suspicion for TB based off radiology but sputum cultures are negative. He was treated with 5 days of azithromycin and Unasyn and was given script for Augmentin 875mg for 5 days. Pt also had RLE cellulitis that improved daily which was treated with abx. Pt had hypophosphatemia which was repleted successfully. For DM, SSI was used and script was sent for outpatient metformin 500mg daily. Pt was discharged to [place] for rehab. Chronic conditions with no change: HTN- carvedilol Parkinson's- levo/carbidopa CAD- ASA, BB, statin Date of Admission:07/11/19 Date of Discharge: 07/16/19 Minutes to complete discharge: 35 Discharge Summary Reason For Visit: INFILTRATION OF UPPER LOBE OF RIGHT LUNG Current Active Problems Cellulitis (Acute) Parkinsons disease (Acute) Right upper lobe pulmonary infiltrate (Acute) Condition: Stable - Instructions Diet, Activity, Other Instructions: Hospital Visit: You were admitted to the hospital after a fall. A CT of your head and neck showed that you did not have a brain bleed after hitting your head and you had no fracture in your neck. A CT of your chest showed pneumonia in your right lung. You were treated for the pneumonia with antibiotics. The scan also showed a lymph node in the center of your chest that can be followed up after you are discharged. You were also found to have an infection of the skin on your right leg and foot that was treated with antibiotics. There has been ianmprovement in your shortness of breath and your leg infection. You have been cleared to go to [place] to get rehabilitation before going home. Your blood sugar was slightly elevated during your stay. You will be started on a medication (Metformin) to bring your blood sugar down to a normal level. You need to follow up with your primary care doctor to get your blood sugar checked. Medications: Continue your home medications. You are being given a prescription for an antibiotic to take by mouth, Augmentin , twice a day for 5 days. You are being given a prescription for Metformin 500mg once a day with dinner Your primary care doctor will adjust this medication if necessary. Sometimes this causes an upset stomach, so make sure to take it with food. You will require blood test (HbA1c) within three months to check your blood sugar. Follow up with the following physicians: Your primary care physician within 1 week of discharge. You may need a chest x- ray to see if your pneumonia is improving. Further, your CT scan of your chest revealed prominent lymph node which will require follow up CT scan. Discuss further with your primary care physician. Your neck ultrasound revealed some occlusion of the vessels. You may need an additonal test (CTA neck) to evaluate this further. Discuss further with your primary care physician. Dr. Barbosa (podiatry) to check your right 3rd toe. Other instructions: Return to the nearest emergency room if you have dizziness, severe headache, chest pain or pressure that does not quickly resolve, worsening cough or shortness of breath, wheezing, or fever above 101.0. Referrals: Johnie Blankenship [Primary Care Provider] - Geovany Barbosa MD [Staff Physician] - Disposition: INTERMEDIATE FACILITY - Home Medications Comprehensive Discharge Medication List: Ambulatory Orders Carbidopa/Levodopa/Entacapone [Carbidopa-Levodopa 200 mg-Enta] 1 each PO QID 10/14 Carvedilol [Coreg -] 6.25 mg PO BID 10/08/18 Furosemide [Lasix] 40 mg PO DAILY #0 10/08/18 Gabapentin 600 mg PO BID 10/08/18 Clopidogrel Bisulfate [Clopidogrel] 75 mg PO DAILY 07/11/19 Aspirin [ASA -] 81 mg PO DAILY 07/12/19 Selegiline HCl 5 mg PO ASDIR 07/12/19 Mirtazapine 15 mg HS 07/13/19 Amox-Tr/K Cl [Augmentin - 875Mg Tablet] 1 tab PO BID 5 Days #10 tablet 07/16/19 metFORMIN XR [Glucophage Xr -] 500 mg PO DAILY 30 Days #30 tab.sr.24h 07/16/19 This patient is new to me today: No Emergency Visit: Yes ED Registration Date: 07/11/19 Care time: The patient presented to the Emergency Department on the above date and was hospitalized for further evaluation of their emergent condition. Critical Care patient: No - Discharge Referral Referred to [facility] No ATTENDING PHYSICIAN STATEMENT I saw and evaluated the patient. I reviewed the resident's note and discussed the case with the resident. I agree with the resident's findings and plan as documented. SUBJECTIVE: OBJECTIVE: ASSESSMENT AND PLAN:
[2019-07-17] MEDS ORDERED: PT OWN MED DRAWER 7, Y5N ONE ×3 (02:10→06:38)
[2019-07-17] MEDS: AMPICILLIN NA/SULBACTAM NA 3 GM in SODIUM CHLORIDE 100 ML IVPB SCH ×2 (02:15→09:50)
[2019-07-17] MEDS: SELEGILINE HCL 5 MG CAPSULE PO SCH ×2 (06:33→11:28)
[2019-07-17] MEDS: INSULIN SLIDING SCALE (NOVOLOG) 1 VIAL SQ SCH (06:33)
[2019-07-17] MEDS: CARVEDILOL 6.25 MG TABLET (FP) PO SCH (09:45)
[2019-07-17] MEDS: CLOPIDOGREL BISULFATE 75 MG TABLET (FP) PO SCH (09:45)
[2019-07-17] MEDS: GABAPENTIN 300 MG CAPSULE (FP) PO SCH (09:45)
[2019-07-17] MEDS: ASPIRIN 81 MG CHEWABLE TABLETS PO SCH (09:45)
[2019-07-17] MEDS: ENOXAPARIN NA (PORCINE) 40 MG/0.4 ML DISP.SYRIN SQ SCH (09:46)
[2019-07-17] MEDS: CARBIDOP 50MG/LEVODOPA 200MG/ENTACAPONE 200MG TABLET PO SCH (09:48)
[2019-07-17] MEDS: AZITHROMYCIN IVPB 500 MG/250 ML BAG IVPB SCH (11:03)
[2019-07-17 12:23] VITALS: BP 131/68; PULSE 60; TEMP 97.9
== END 2019-07-17 13:14 | DRG 871 ==
LOC: JER 15:58 → JERBED 20:06 → J4S 07-12 00:08
PROVIDERS: ADMIT Internal Medicine; ATTEND Internal Medicine
DX: A41.89 Other specified sepsis (principal); J18.9 Pneumonia, unspecified organism; L03.115 Cellulitis of right lower limb; E11.9 Type 2 diabetes mellitus without complications; I25.10 Atherosclerotic heart disease of native coronary artery without angina pectoris; G20 Parkinson's disease; W19.XXXA Unspecified fall, initial encounter; J43.2 Centrilobular emphysema; Z95.1 Presence of aortocoronary bypass graft; I10 Essential (primary) hypertension; I87.8 Other specified disorders of veins; E83.39 Other disorders of phosphorus metabolism; D72.829 Elevated white blood cell count, unspecified
CPT/HCPCS: 36415; 70450-TC; 71045-TC-FY; 71046-TC-FY; 71260-TC; 72125-TC; 73030-TC-RT-FY; 73523-TC-FY; 80048; 80053; 81003; 82550; 82803; 82962; 83605; 83735; 84100; 84484; 85025; 85610; 85730; 87040; 87070; 87086; 87116; 87186; 87205; 87206; 93005; 93010; 93306-TC; 93880-TC; 97116-GP; 97162-GP; 99285-25; J7030

== ENCOUNTER 2021-01-04 22:33 | Inpatient (IN) | payer BC, OTHER ==
[2021-01-04 23:31] LABS: BASO % 0.2 % (0-2.0); HEMATOCRIT 27.6 % (35.4-49); HEMOGLOBIN 9.5 GM/dL (11.7-16.9); LYMPH % 10.8 % (8-40); MCH 32.4 pg (25.7-33.7); MCHC 34.5 g/dl (32.0-35.9); MEAN CELL VOLUME 93.9 fl (80-96); MEAN PLT VOLUME 8.4 fl (7.5-11.1); MONO % 5.1 % (3.8-10.2); NEUT % 83.9 % (42.8-82.8); PLATELET COUNT 125 K/MM3 (134-434); RBC 2.94 M/mm3 (4.00-5.60); RDW 14.6 % (11.9-15.9)
[2021-01-04 23:44] LABS: INR 1.22 (0.83-1.09); PROTHROMBIN TIME (PATIENT) 14.7 SEC (9.7-13.0)
[2021-01-04 23:56] LABS: CHLORIDE 109 mmol/L (98-107); POTASSIUM 3.9 mmol/L (3.5-5.1); SODIUM 142 mmol/L (136-145)
[2021-01-04 23:59] LABS: ANION GAP 8 MMOL/L (8-16); BLOOD UREA NITROGEN 78.8 mg/dL (7-18); CALCIUM 8.7 mg/dL (8.5-10.1); CO2 25 mmol/L (21-32); GLUCOSE,RANDOM 241 mg/dL (74-106); LIPASE 40 U/L (73-393)
[2021-01-05 00:02] LABS: CREATININE 1.1 mg/dL (0.55-1.3); SGOT/AST 7 U/L (15-37)
[2021-01-05 00:03] LABS: BILIRUBIN,TOTAL 0.5 mg/dL (0.2-1)
[2021-01-05 00:05] LABS: ALK PHOS 77 U/L (45-117)
[2021-01-05 00:07] LABS: SGPT/ALT < 6 U/L (13-61)
[2021-01-05] MEDS ORDERED: LACTATED RINGERS SOLUTION 1000 ML INFUS.BAG IV ONE (00:14)
[2021-01-05] MEDS ORDERED: PANTOPRAZOLE SODIUM 40 MG VIAL IVPUSH ONE ×2 (03:39)
[2021-01-05] MEDS ORDERED: PANTOPRAZOLE SODIUM 40 MG VIAL ONE ×2 (03:44→08:52)
[2021-01-05] MEDS ORDERED: LACTATED RINGERS SOLUTION 1,000 ML/1,000 ML INFUS.BAG IV SCH (06:00)
[2021-01-05] MEDS ORDERED: PANTOPRAZOLE SODIUM 80 MG/200 ML BAG IVPB ONE (08:52)
[2021-01-05] MEDS: PANTOPRAZOLE SODIUM 80 MG in SODIUM CHLORIDE 100 ML IVPB SCH ×3 (09:11→17:49)
[2021-01-05] MEDS: INSULIN SLIDING SCALE (NOVOLOG) 1 VIAL SQ SCH ×4 (09:11→23:22)
[2021-01-05] MEDS ORDERED: SERTRALINE HCL 50 MG TABLET (FP) ONE (09:12)
[2021-01-05] MEDS: SERTRALINE HCL 50 MG TABLET (FP) PO SCH (09:15)
[2021-01-05 09:49] LABS: URINE APPEARANCE CLEAR; URINE BILIRUBIN NEGATIVE (NEGATIVE); URINE COLOR YELLOW; URINE GLUCOSE (UA) NEGATIVE (NEGATIVE); URINE KETONE NEGATIVE (NEGATIVE); URINE LEUK ESTERASE NEGATIVE (NEGATIVE); URINE NITRITE NEGATIVE (NEGATIVE); URINE PROTEIN NEGATIVE (NEGATIVE); URINE UROBILINOGEN 0.2 mg/dL (0.2-1.0)
[2021-01-05] MEDS ORDERED: PANTOPRAZOLE SODIUM 40 MG VIAL IVPUSH SCH (10:00)
[2021-01-05] MEDS ORDERED: GABAPENTIN 300 MG CAPSULE PO SCH (10:00)
[2021-01-05] MEDS ORDERED: ISTRADEFYLLINE 20 MG PO SCH (10:00)
[2021-01-05] MEDS ORDERED: CARBIDOP 50MG/LEVODOPA 200MG/ENTACAPONE 200MG TABLET PO SCH (10:00)
[2021-01-05 10:03] LABS: BASO % 0.7 % (0-2.0); EOS % 0.1 % (0-4.5); HEMATOCRIT 26.5 % (35.4-49); HEMOGLOBIN 9.2 GM/dL (11.7-16.9); LYMPH % 22.9 % (8-40); MCH 32.1 pg (25.7-33.7); MCHC 34.6 g/dl (32.0-35.9); MEAN CELL VOLUME 92.9 fl (80-96); MEAN PLT VOLUME 8.1 fl (7.5-11.1); NEUT % 69.3 % (42.8-82.8); PLATELET COUNT 137 K/MM3 (134-434); RBC 2.86 M/mm3 (4.00-5.60); RDW 14.6 % (11.9-15.9); WHITE BLOOD COUNT 9.9 K/mm3 (4.0-10.0)
[2021-01-05 10:25] LABS: POTASSIUM 3.7 mmol/L (3.5-5.1)
[2021-01-05 10:26] LABS: ALBUMIN 3.2 g/dl (3.4-5.0)
[2021-01-05 10:27] LABS: BLOOD UREA NITROGEN 55.5 mg/dL (7-18); MAGNESIUM 2.2 mg/dL (1.8-2.4)
[2021-01-05 10:30] LABS: CREATININE 0.9 mg/dL (0.55-1.3); PHOSPHOROUS 1.8 mg/dL (2.5-4.9)
[2021-01-05 10:32] LABS: BILIRUBIN,TOTAL 0.4 mg/dL (0.2-1); TOT PROT 6.2 g/dl (6.4-8.2)
[2021-01-05 10:33] LABS: CALCIUM 8.7 mg/dL (8.5-10.1)
[2021-01-05] MEDS: CARVEDILOL 3.125 MG TABLET (FP) PO SCH ×2 (15:01→21:45)
[2021-01-05] MEDS ORDERED: PNEUMOC 13-VAL CONJ-DIP CRM/PF 0.5 ML DISP.SYRIN IM ONE (19:37)
[2021-01-06] MEDS: INSULIN SLIDING SCALE (NOVOLOG) 1 VIAL SQ SCH ×4 (06:34→22:39)
[2021-01-06] MEDS: PANTOPRAZOLE SODIUM 80 MG in SODIUM CHLORIDE 100 ML IVPB SCH ×2 (06:35→15:11)
[2021-01-06 07:00] LABS: BASO % 0.5 % (0-2.0); EOS % 1.1 % (0-4.5); HEMATOCRIT 20.9 % (35.4-49); HEMOGLOBIN 7.2 GM/dL (11.7-16.9); LYMPH % 25.8 % (8-40); MCH 32.2 pg (25.7-33.7); MCHC 34.5 g/dl (32.0-35.9); MEAN CELL VOLUME 93.6 fl (80-96); MEAN PLT VOLUME 8.5 fl (7.5-11.1); MONO % 5.7 % (3.8-10.2); NEUT % 66.9 % (42.8-82.8); PLATELET COUNT 114 K/MM3 (134-434); RBC 2.24 M/mm3 (4.00-5.60); RDW 14.6 % (11.9-15.9); WHITE BLOOD COUNT 6.2 K/mm3 (4.0-10.0)
[2021-01-06 07:16] LABS: POTASSIUM 3.7 mmol/L (3.5-5.1)
[2021-01-06 07:21] LABS: CALCIUM 7.7 mg/dL (8.5-10.1)
[2021-01-06 07:22] LABS: MAGNESIUM 2.3 mg/dL (1.8-2.4)
[2021-01-06 07:25] LABS: ALBUMIN 2.7 g/dl (3.4-5.0); CREATININE 0.8 mg/dL (0.55-1.3)
[2021-01-06 07:27] LABS: BILIRUBIN,TOTAL 0.4 mg/dL (0.2-1); TOT PROT 5.2 g/dl (6.4-8.2)
[2021-01-06] MEDS ORDERED: SODIUM CHLORIDE 1,000 ML IV STA ×2 (08:25→13:52)
[2021-01-06] MEDS ORDERED: PT OWN MED DRAWER 7, Y5N ONE ×2 (08:50→11:37)
[2021-01-06] MEDS ORDERED: DEXTROSE 5%-NORMAL SALINE 1,000 ML IV SCH (10:30)
[2021-01-06] MEDS: CARVEDILOL 3.125 MG TABLET (FP) PO SCH (11:08)
[2021-01-06] MEDS: CARBIDOP 50MG/LEVODOPA 200MG/ENTACAPONE 200MG TABLET PO SCH ×4 (11:08→17:47)
[2021-01-06] MEDS: SERTRALINE HCL 50 MG TABLET (FP) PO SCH (11:10)
[2021-01-06 14:25] LABS: BASO % 0.3 % (0-2.0); EOS % 0.8 % (0-4.5); HEMATOCRIT 21.1 % (35.4-49); LYMPH % 26.4 % (8-40); MCH 31.6 pg (25.7-33.7); MCHC 33.3 g/dl (32.0-35.9); MEAN CELL VOLUME 95.1 fl (80-96); MEAN PLT VOLUME 8.9 fl (7.5-11.1); MONO % 5.4 % (3.8-10.2); NEUT % 67.1 % (42.8-82.8); PLATELET COUNT 100 K/MM3 (134-434); RBC 2.22 M/mm3 (4.00-5.60); WHITE BLOOD COUNT 5.7 K/mm3 (4.0-10.0)
[2021-01-06 14:46] LABS: CHLORIDE 116 mmol/L (98-107); POTASSIUM 3.9 mmol/L (3.5-5.1); SODIUM 146 mmol/L (136-145)
[2021-01-06 14:48] LABS: CALCIUM 7.7 mg/dL (8.5-10.1)
[2021-01-06 14:49] LABS: ALBUMIN 2.5 g/dl (3.4-5.0); ANION GAP 3 MMOL/L (8-16); BLOOD UREA NITROGEN 25.2 mg/dL (7-18); CO2 27 mmol/L (21-32); GLUCOSE,RANDOM 134 mg/dL (74-106)
[2021-01-06 14:52] LABS: CREATININE 0.7 mg/dL (0.55-1.3); SGOT/AST 37 U/L (15-37)
[2021-01-06 14:53] LABS: BILIRUBIN,TOTAL 0.3 mg/dL (0.2-1)
[2021-01-06 14:54] LABS: ALK PHOS 66 U/L (45-117)
[2021-01-06 14:57] LABS: N-TERMINAL BNP 790.3 pg/ml (5-450)
[2021-01-06 15:25] LABS: SGPT/ALT < 6 U/L (13-61)
[2021-01-06] MEDS: SODIUM CHLORIDE 1,000 ML IV SCH (17:18)
[2021-01-06] MEDS: POTASSIUM PHOSPHATE 30 MM in DEXTROSE 5%-WATER - 500 ML IVPB ONE (18:12)
[2021-01-06 20:29] LABS: INR 1.16 (0.83-1.09)
[2021-01-07 00:43] LABS: HEMATOCRIT 25.7 % (35.4-49); HEMOGLOBIN 8.7 GM/dL (11.7-16.9); MCH 30.9 pg (25.7-33.7); MCHC 33.8 g/dl (32.0-35.9); MEAN CELL VOLUME 91.6 fl (80-96); MEAN PLT VOLUME 8.7 fl (7.5-11.1); PLATELET COUNT 107 K/MM3 (134-434); RBC 2.81 M/mm3 (4.00-5.60); RDW 15.8 % (11.9-15.9)
[2021-01-07] MEDS ORDERED: INSULIN (NOVOLOG) ASPART 100 UNITS/ML 10ML VIAL ONE (02:11)
[2021-01-07] MEDS ORDERED: PT OWN MED DRAWER 7, Y5N ONE (02:11)
[2021-01-07] MEDS: SODIUM CHLORIDE 1,000 ML IV SCH (02:40)
[2021-01-07] MEDS: PANTOPRAZOLE SODIUM 80 MG in SODIUM CHLORIDE 100 ML IVPB SCH ×3 (03:40→21:36)
[2021-01-07] MEDS: INSULIN SLIDING SCALE (NOVOLOG) 1 VIAL SQ SCH ×4 (07:21→21:34)
[2021-01-07 07:47] LABS: HEMATOCRIT 26.9 % (35.4-49); HEMOGLOBIN 9.5 GM/dL (11.7-16.9); MCH 32.2 pg (25.7-33.7); MCHC 35.2 g/dl (32.0-35.9); MEAN CELL VOLUME 91.3 fl (80-96); MEAN PLT VOLUME 8.9 fl (7.5-11.1); PLATELET COUNT 128 K/MM3 (134-434); RBC 2.95 M/mm3 (4.00-5.60); WHITE BLOOD COUNT 7.6 K/mm3 (4.0-10.0)
[2021-01-07 08:01] LABS: POTASSIUM 3.7 mmol/L (3.5-5.1)
[2021-01-07 08:08] LABS: ALBUMIN 2.9 g/dl (3.4-5.0); CALCIUM 7.5 mg/dL (8.5-10.1)
[2021-01-07 08:12] LABS: BILIRUBIN,TOTAL 0.5 mg/dL (0.2-1); CREATININE 0.7 mg/dL (0.55-1.3); TOT PROT 5.6 g/dl (6.4-8.2)
[2021-01-07] MEDS ORDERED: LORazepam 2 MG/ML SDV VIAL IVPUSH ONE (12:33)
[2021-01-08] MEDS: SODIUM CHLORIDE 1,000 ML IV SCH ×3 (01:33→22:52)
[2021-01-08] MEDS: INSULIN SLIDING SCALE (NOVOLOG) 1 VIAL SQ SCH ×4 (06:31→21:13)
[2021-01-08 06:48] LABS: HEMATOCRIT 25.7 % (35.4-49); MCHC 34.9 g/dl (32.0-35.9); MEAN CELL VOLUME 91.6 fl (80-96); MEAN PLT VOLUME 8.9 fl (7.5-11.1); PLATELET COUNT 128 K/MM3 (134-434); RBC 2.81 M/mm3 (4.00-5.60); RDW 15.9 % (11.9-15.9); WHITE BLOOD COUNT 6.3 K/mm3 (4.0-10.0)
[2021-01-08] MEDS: PANTOPRAZOLE SODIUM 80 MG in SODIUM CHLORIDE 100 ML IVPB SCH (07:22)
[2021-01-08 07:31] LABS: BLOOD UREA NITROGEN 11.9 mg/dL (7-18); CALCIUM 7.9 mg/dL (8.5-10.1); CREATININE 0.8 mg/dL (0.55-1.3); MAGNESIUM 2.1 mg/dL (1.8-2.4); POTASSIUM 3.5 mmol/L (3.5-5.1)
[2021-01-08] MEDS ORDERED: PT OWN MED DRAWER 7, Y5N ONE ×2 (19:56→22:46)
[2021-01-08] MEDS: PANTOPRAZOLE SODIUM 40 MG VIAL IVPUSH SCH (21:06)
[2021-01-08] MEDS ORDERED: ACETAMINOPHEN 1000 MG/100 ML VIAL (NON FORMULARY) IVPB STA (22:42)
[2021-01-08] MEDS ORDERED: ACETAMINOPHEN INJECTION 100 ML IVPB ONE (22:46)
[2021-01-09] MEDS: INSULIN SLIDING SCALE (NOVOLOG) 1 VIAL SQ SCH ×4 (06:00→22:08)
[2021-01-09 07:24] LABS: BASO % 0.6 % (0-2.0); EOS % 4.4 % (0-4.5); HEMOGLOBIN 9.5 GM/dL (11.7-16.9); MCH 32.3 pg (25.7-33.7); MEAN CELL VOLUME 92.3 fl (80-96); MONO % 6.3 % (3.8-10.2); NEUT % 67.7 % (42.8-82.8); PLATELET COUNT 137 K/MM3 (134-434); RBC 2.93 M/mm3 (4.00-5.60); RDW 15.5 % (11.9-15.9); WHITE BLOOD COUNT 6.4 K/mm3 (4.0-10.0)
[2021-01-09 07:34] LABS: POTASSIUM 3.5 mmol/L (3.5-5.1)
[2021-01-09 07:41] LABS: ALBUMIN 2.5 g/dl (3.4-5.0); BLOOD UREA NITROGEN 11.5 mg/dL (7-18); CALCIUM 7.9 mg/dL (8.5-10.1)
[2021-01-09 07:42] LABS: CREATININE 0.7 mg/dL (0.55-1.3); MAGNESIUM 2.2 mg/dL (1.8-2.4)
[2021-01-09 07:43] LABS: BILIRUBIN,TOTAL 0.5 mg/dL (0.2-1); TOT PROT 5.2 g/dl (6.4-8.2)
[2021-01-09 07:44] LABS: PHOSPHOROUS 2.4 mg/dL (2.5-4.9)
[2021-01-09] MEDS: PANTOPRAZOLE SODIUM 40 MG VIAL IVPUSH SCH (09:42)
[2021-01-09] MEDS ORDERED: PANTOPRAZOLE 40 MG TABLET PO SCH (11:30)
[2021-01-09] MEDS ORDERED: POTASSIUM CHLORIDE ORAL LIQUID 20 MEQ/15 ML PO ONE (14:45)
[2021-01-09] MEDS ORDERED: SODIUM CHLORIDE 1,000 ML IV SCH (16:24)
[2021-01-09] MEDS ORDERED: PT OWN MED DRAWER 7, Y5N ONE ×3 (16:43→21:56)
[2021-01-09] MEDS: CARBIDOP 50MG/LEVODOPA 200MG/ENTACAPONE 200MG TABLET PO SCH ×2 (17:56→22:08)
[2021-01-09] MEDS: SODIUM CHLORIDE 1,000 ML IV SCH (20:31)
[2021-01-09] MEDS ORDERED: ACETAMINOPHEN 325 MG TABLET (FP) PO ONE (22:38)
[2021-01-10] MEDS: INSULIN SLIDING SCALE (NOVOLOG) 1 VIAL SQ SCH ×4 (06:38→21:04)
[2021-01-10 06:41] LABS: HEMOGLOBIN 9.6 GM/dL (11.7-16.9); MCH 31.6 pg (25.7-33.7); MCHC 34.2 g/dl (32.0-35.9); MEAN CELL VOLUME 92.5 fl (80-96); MEAN PLT VOLUME 8.9 fl (7.5-11.1); PLATELET COUNT 141 K/MM3 (134-434); RBC 3.03 M/mm3 (4.00-5.60); RDW 15.6 % (11.9-15.9); WHITE BLOOD COUNT 7.3 K/mm3 (4.0-10.0)
[2021-01-10 07:01] LABS: POTASSIUM 3.8 mmol/L (3.5-5.1)
[2021-01-10 07:06] LABS: BLOOD UREA NITROGEN 13.4 mg/dL (7-18); CALCIUM 8.2 mg/dL (8.5-10.1)
[2021-01-10 07:10] LABS: CREATININE 0.7 mg/dL (0.55-1.3)
[2021-01-10] MEDS ORDERED: PT OWN MED DRAWER 7, Y5N ONE ×3 (09:16→20:06)
[2021-01-10] MEDS: PANTOPRAZOLE 40 MG TABLET PO SCH (09:32)
[2021-01-10] MEDS: CARBIDOP 50MG/LEVODOPA 200MG/ENTACAPONE 200MG TABLET PO SCH ×4 (10:50→21:04)
[2021-01-10] MEDS ORDERED: ACETAMINOPHEN 1000 MG/100 ML VIAL (NON FORMULARY) IVPB ONE (12:50)
[2021-01-10] MEDS ORDERED: CLARITHROMYCIN 500 MG TABLET (UD) PO SCH (22:00)
[2021-01-10] MEDS ORDERED: AMOXICILLIN 500 MG CAPSULE (FP) PO SCH (22:00)
[2021-01-11] MEDS: INSULIN SLIDING SCALE (NOVOLOG) 1 VIAL SQ SCH ×4 (06:50→22:55)
[2021-01-11 07:19] LABS: HEMATOCRIT 31.6 % (35.4-49); HEMOGLOBIN 10.7 GM/dL (11.7-16.9); MCH 31.3 pg (25.7-33.7); MCHC 33.9 g/dl (32.0-35.9); MEAN CELL VOLUME 92.3 fl (80-96); MEAN PLT VOLUME 8.8 fl (7.5-11.1); PLATELET COUNT 170 K/MM3 (134-434); RBC 3.42 M/mm3 (4.00-5.60); RDW 15.7 % (11.9-15.9); WHITE BLOOD COUNT 8.5 K/mm3 (4.0-10.0)
[2021-01-11] MEDS ORDERED: ASPIRIN 81 MG CHEWABLE TABLETS PO SCH (10:00)
[2021-01-11] MEDS: CARBIDOP 50MG/LEVODOPA 200MG/ENTACAPONE 200MG TABLET PO SCH ×4 (10:24→22:46)
[2021-01-11] MEDS: PANTOPRAZOLE 40 MG TABLET PO SCH (10:29)
[2021-01-11] MEDS: DOCUSATE SODIUM 100 MG CAPSULE (FP) PO SCH ×2 (11:54→22:42)
[2021-01-11] MEDS: PANTOPRAZOLE 20 MG TABLET PO SCH ×2 (11:54→22:59)
[2021-01-11 16:33] VITALS: BMI 29.2
[2021-01-12] MEDS: INSULIN SLIDING SCALE (NOVOLOG) 1 VIAL SQ SCH ×3 (06:22→19:01)
[2021-01-12 07:55] LABS: HEMATOCRIT 29.7 % (35.4-49); HEMOGLOBIN 9.8 GM/dL (11.7-16.9); MCH 30.5 pg (25.7-33.7); MEAN CELL VOLUME 92.5 fl (80-96); MEAN PLT VOLUME 8.8 fl (7.5-11.1); PLATELET COUNT 167 K/MM3 (134-434); RBC 3.21 M/mm3 (4.00-5.60); RDW 15.7 % (11.9-15.9); WHITE BLOOD COUNT 7.9 K/mm3 (4.0-10.0)
[2021-01-12] MEDS: CARBIDOP 50MG/LEVODOPA 200MG/ENTACAPONE 200MG TABLET PO SCH ×3 (10:04→19:01)
[2021-01-12] MEDS: DOCUSATE SODIUM 100 MG CAPSULE (FP) PO SCH (10:05)
[2021-01-12] MEDS: PANTOPRAZOLE 20 MG TABLET PO SCH (10:05)
[2021-01-12] MEDS ORDERED: POLYETHYLENE GLYCOL 3350 119 GM BTL PO SCH (11:30)
[2021-01-12 19:57] VITALS: BP 98/48; PULSE 78; TEMP 98
== END 2021-01-12 20:50 | DRG 377 ==
LOC: JER 22:33 → JERBED 01-05 03:35 → J4W 01-05 13:05 → JICU 01-06 19:27 → J6WEST-2 01-11 14:33
PROVIDERS: ADMIT Hospitalist; ATTEND Internal Medicine
PROC: 30233N1 Transfusion of Nonautologous Red Blood Cells into Peripheral Vein, Percutaneous Approach (ICD-10-PCS; 2021-01-06)
PROC: 0DB68ZX Excision of Stomach, Via Natural or Artificial Opening Endoscopic, Diagnostic (ICD-10-PCS; 2021-01-09)
PROC: 0DJ08ZZ Inspection of Upper Intestinal Tract, Via Natural or Artificial Opening Endoscopic (ICD-10-PCS; principal; 2021-01-09 11:00)
DX: K25.0 Acute gastric ulcer with hemorrhage (principal); R57.1 Hypovolemic shock; I24.8 Other forms of acute ischemic heart disease; D62 Acute posthemorrhagic anemia; E87.2 Acidosis; I25.10 Atherosclerotic heart disease of native coronary artery without angina pectoris; E11.9 Type 2 diabetes mellitus without complications; I10 Essential (primary) hypertension; G20 Parkinson's disease; I48.91 Unspecified atrial fibrillation; R44.1 Visual hallucinations; B96.81 Helicobacter pylori [H. pylori] as the cause of diseases classified elsewhere; Z95.1 Presence of aortocoronary bypass graft; Z95.5 Presence of coronary angioplasty implant and graft; I95.9 Hypotension, unspecified; F32.9 Major depressive disorder, single episode, unspecified; E78.5 Hyperlipidemia, unspecified
CPT/HCPCS: 36415; 36430; 70450-TC; 71045-TC-FY; 72125-TC; 74177-TC; 80048; 80053; 81003; 82272; 82550; 82553; 82962; 83036; 83605; 83690; 83735; 83880; 84100; 84484; 85025; 85027; 85379; 85610; 85730; 86850; 86900; 86901; 86922; 87086; 88305-TC; 90670; 93005; 93010; 93306-TC; 97116-GP; 97161-GP; 99285-25; C9803; J0131; P9058; U0003